=== PATIENT | female | born 1975 | race Caucasian/White ===

== ENCOUNTER 2019-06-30 12:54 | Outpatient (CLI) | payer OTHER, SELFPAY ==
--- NOTE | 2019-06-30 | XR_ITS ---
WS: [id number] PROCEDURE: XR chest 2V* [id number] CLINICAL INFORMATION: ACUTE BRONCHITIS UNSPECIFIED ORGANISM COMPARISON: June 24, 2018 FINDINGS: Heart: Cardiomegaly. Lungs: Chronic emphysematous changes. No acute pulmonary infiltrates. No focal pneumonia. Fibrosis ri ght lower lobe. Bones: S-shaped thoracolumbar scoliosis. Lateral margarita and screw fixation mid thoracic spine T6-T12 unc hanged from previous. Right sixth rib is surgically absent. Chronic healed right fifth rib fracture. XR/XR chest 2V* [id number] IMPRESSION: 1. Chronic emphysematous changes. No acute pulmonary infiltrates. 2. Fibrosis right lower lobe. 3. Thoracolumbar scoliosis with stable postoperative changes.
--- NOTE | 2019-06-30 | XR_ITS ---
WS: [id number] PROCEDURE: XR chest 2V* [id number] CLINICAL INFORMATION: ACUTE BRONCHITIS UNSPECIFIED ORGANISM COMPARISON: June 24, 2018 FINDINGS: Heart: Cardiomegaly. Lungs: Chronic emphysematous changes. No acute pulmonary infiltrates. No focal pneumonia. Fibrosis ri ght lower lobe. Bones: S-shaped thoracolumbar scoliosis. Lateral margarita and screw fixation mid thoracic spine T6-T12 unc hanged from previous. Right sixth rib is surgically absent. Chronic healed right fifth rib fracture.
== END 2019-06-30 12:55 | disposition home or self-care (01) ==
LOC: RADOUTREAD 14:31
PROVIDERS: Visit Provider Nurse Practitioner Family
DX: J20.9 Acute bronchitis, unspecified (principal); J43.9 Emphysema, unspecified; J84.10 Pulmonary fibrosis, unspecified; M41.85 Other forms of scoliosis, thoracolumbar region
CPT/HCPCS: 71046

== ENCOUNTER → 2019-07-30 11:08 | Outpatient (BNVA) | payer OTHER, SELFPAY | PROVIDERS: Visit Provider Orthopaedic Surgery | DX: M25.561 Pain in right knee (principal); M17.11 Unilateral primary osteoarthritis, right knee | CPT/HCPCS: 73560; 73565 ==

== ENCOUNTER → 2019-09-03 09:06 | Outpatient (BNVA) | payer OTHER, SELFPAY | PROVIDERS: Visit Provider Psychiatry & Neurology Neurology | DX: G43.009 Migraine without aura, not intractable, without status migrainosus (principal); G50.0 Trigeminal neuralgia; M79.7 Fibromyalgia; R25.1 Tremor, unspecified | CPT/HCPCS: 99213; 99214 ==

== ENCOUNTER → 2019-11-02 15:56 | Outpatient (BNVA) | payer OTHER, SELFPAY | PROVIDERS: Referring Provider Nurse Practitioner Family; Visit Provider Dermatology | DX: D23.9 Other benign neoplasm of skin, unspecified (principal); L91.0 Hypertrophic scar; S80.812A Abrasion, left lower leg, initial encounter; L85.1 Acquired keratosis [keratoderma] palmaris et plantaris; D17.9 Benign lipomatous neoplasm, unspecified; L82.1 Other seborrheic keratosis | CPT/HCPCS: 99203; 99204 ==

== ENCOUNTER 2019-12-12 09:34 | Outpatient (CLI) | payer OTHER, SELFPAY ==
[2019-12-12 10:06] LABS: D Dimer 0.96 ug/mIFEU (0-0.59)
[2019-12-12 10:50] LABS: Alanine Aminotransferase 28 U/L (0-33); Albumin Level 3.9 g/dL (3.5-5.2); Alkaline Phosphatase 88 IU/L (35-105); Aspartate Amino Transferase 20 U/L (0-32); Blood Urea Nitrogen 11 mg/dL (6-20); Calcium 8.9 mg/dL (8.5-10.5); Carbon Dioxide 25 mmol/L (22-29); Chloride 104 mmol/L (98-107); Globulin 2.6 g/dL (1.3-4.6); Glomerular Filtration Rate 90.1 mL/min (90-130); Glucose 111 mg/dL (65-115); NT Pro B Type Natriuretic Pept 128 pg/mL (0-125); Osmolality Calculated 290 mOsm/kg (285-295); Sodium 140 mmol/L (136-145); Total Bilirubin 0.6 mg/dL (0.15-1.2); Total Protein 6.5 g/dL (6.6-8.7)
== END 2019-12-12 09:35 | disposition home or self-care (01) ==
LOC: LAB 09:36
PROVIDERS: PCP Nurse Practitioner Family; Visit Provider Nurse Practitioner Women's Health
DX: R60.9 Edema, unspecified (principal)
CPT/HCPCS: 80053; 83880; 85378

== ENCOUNTER → 2019-12-16 10:08 | Outpatient (BNVA) | payer OTHER, SELFPAY | PROVIDERS: PCP Nurse Practitioner Family; Visit Provider Dermatology | DX: D23.9 Other benign neoplasm of skin, unspecified (principal); D48.9 Neoplasm of uncertain behavior, unspecified | CPT/HCPCS: 11406; 12032; 88304 ==

== ENCOUNTER 2019-12-18 17:32 | Emergency (ER) | payer OTHER, SELFPAY ==
[2019-12-18 17:56] VITALS: BP 165/92; PULSE 110; RESP 20; TEMP 36.7; O2SAT 98; BMI 71.1
--- NOTE | 2019-12-18 18:06 | USR_ITS ---
PROCEDURE INFORMATION: Exam: US Duplex Lower Extremity Veins, Bilateral Exam date and time: 12/18/2019 7:05 PM Age: 44 years old Clinical indication: Swelling (edema) of limb; Lower extremity, bilateral; Additional info: Dvt TECHNIQUE: Imaging protocol: Real-time duplex ultrasound of the extremities with 2-D richardson scale, color Doppler flow and spectral waveform analysis with image documentation. Complete exam focused on the bilateral lower extremity veins. COMPARISON: US ROR venous duplex LE RT 07/04/2018 4:10 PM FINDINGS: Right deep veins: Unremarkable. The common femoral, femoral, proximal profunda femoral and popliteal veins are patent without thrombus. Normal Doppler waveforms. Normal compressibility and/or augmentation response. Right superficial veins: Saphenofemoral junction is patent without thrombus. Left deep veins: Unremarkable. The common femoral, femoral, proximal profunda femoral and popliteal veins are patent without thrombus. Normal Doppler waveforms. Normal compressibility and/or augmentation response. Left superficial veins: Saphenofemoral junction is patent without thrombus. Soft tissues: Unremarkable. Other findings: A total of 3891 images acquired that required assessment and interpretation. US/CV venous duplex [facility] [id number] IMPRESSION: No evidence of deep vein thrombosis.
--- NOTE | 2019-12-18 19:23 | ECG_ITS ---
[facility] Test Date: 2019-12-18 Pat Name: Brunilda Casey Department: Room: Gender: Female Teletypewriter Operator: : 1975 Requested By: Michele Jean Baptiste Order Number: [id number] Bertha MD: Alexey Padilla M.D. Measurements Intervals [place] Rate: 106 P: 23 PA: 147 QRS: 11 QRSD: 99 T: 36 QT: 350 QTc: 467 Interpretive Statements SINUS TACHYCARDIA INCOMPLETE RIGHT BUNDLE BRANCH BLOCK [90+ ms QRS DURATION, TERMINAL R IN V1/V2, 40+ ms S IN I/aVL/V4/V5/V6] POSSIBLE ANTERIOR MYOCARDIAL INFARCTION , OF INDETERMINATE AGE [30 ms Q WAVE IN V3/V4, OR R < 0.2 mV IN V4] No previous ECG available for comparison Electronically Signed On 12-18-2019 20:39:19 CDT by Alexey Padilla M.D. [id number]
--- NOTE | 2019-12-18 19:23 | XRR_ITS ---
PROCEDURE INFORMATION: Exam: XR Chest, 1 View Exam date and time: 12/18/2019 7:48 PM Age: 44 years old Clinical indication: Chest pain; Additional info: Cp TECHNIQUE: Imaging protocol: XR of the chest Views: 1 view. COMPARISON: CR XR chest 2V* [id number] 06/30/2019 12:54 PM FINDINGS: Lungs: Unremarkable. No consolidation. Pleural space: Unremarkable. No pleural effusion. No pneumothorax. Heart/Mediastinum: Unremarkable. No cardiomegaly. Bones/joints: Thoracic spine compression plate and screw fixation device. Other findings: Obesity. XR/XR chest 1V portable [id number] IMPRESSION: Nonacute.
[2019-12-18 20:06] LABS: Basophils # 0.1 10^3/uL (0.0-0.1); Basophils % 0.8 %; Eosinophils # 0.5 10^3/uL (0.0-0.8); Eosinophils % 6.3 %; Hematocrit 44.9 % (37.0-47.0); Hemoglobin 14.6 g/dL (11.5-15.3); Lymphocytes # 1.8 10^3/uL (0.8-4.8); Lymphocytes % 23.7 %; Mean Corpuscular HGB Conc 32.5 g/dL (30.0-36.0); Mean Corpuscular Hemoglobin 28.9 pg (28.0-34.0); Mean Corpuscular Volume 88.9 fL (81-99); Mean Platelet Volume 10.2 fL (7.4-10.4); Monocytes # 0.5 10^3/uL (0.2-0.9); Monocytes % 7.2 %; Neutrophils # 4.62 10^3/uL (1.8-7.7); Neutrophils % 61.7 %; Nucleated Red Blood Cells % 0 %; Platelet Count 213 10^3/cmm (130-400); Red Blood Count 5.05 10^6/uL (4.1-5.3); Red Cell Distribution Width 14.1 % (12.1-15.1); White Blood Count 7.5 10^3/uL (4.0-10.0)
--- NOTE | 2019-12-18 20:31 | CTR_ITS ---
PROCEDURE INFORMATION: Exam: CT Angiography Chest With Contrast Exam date and time: 12/18/2019 8:58 PM Age: 44 years old Clinical indication: Shortness of breath; Prior surgery; Surgery type: Thoracic fixation; Patient HX: Bilateral leg swelling. Possible dvt. SOB. Scanned x 2. Best exam submitted TECHNIQUE: Imaging protocol: Computed tomographic angiography of the chest with intravenous contrast. 3D rendering (Not supervised by radiologist): MIP and/or 3D reconstructed images were created by the technologist. Radiation optimization: All CT scans at this facility use at least one of these dose optimization techniques: automated exposure control; mA and/or kV adjustment per patient size (includes targeted exams where dose is matched to clinical indication); or iterative reconstruction. Contrast material: OMNI 350; Contrast volume: 95 ml; Contrast route: INTRAVENOUS (IV); COMPARISON: CR XR chest 1V portable [id number] 12/18/2019 7:35 PM RADIATION DOSE METRICS: Total DLP (mGy-cm): 1839.43 FINDINGS: Tubes, catheters and devices: Right lateral thoracic spine compression plate and screw fixation device. Pulmonary arteries: Suboptimal pulmonary arterial contrast enhancement. The examination is essentially nondiagnostic for the assessment of pulmonary embolism. Can only clear the main pulmonary artery trunk and proximal right and left main pulmonary arteries of pulmonary embolism. Aorta: Unremarkable. No aortic aneurysm. No aortic dissection. Lungs: Minimal dependent atelectasis. No visible active interstitial or alveolar airspace disease. Pleural space: Unremarkable. No pneumothorax. No pleural effusion. Heart: Unremarkable. No cardiomegaly. No pericardial effusion. Lymph nodes: Unremarkable. No grossly visible enlarged lymph nodes. Bones/joints: Scoliosis. No grossly visible acute osseous abnormality. Soft tissues: Marked obesity. Patient's marked obesity results in increased quantum mottle artifact which degrades image quality in detail. Extensive metal artifact from thoracic spine compression screw and plate hardware also severely limits study. Limited diagnostic examination. CT/CT angio chest PE protcl [id number] IMPRESSION: 1. Extremely limited diagnostic examination. 2. Suboptimal pulmonary arterial contrast enhancement. The examination is essentially nondiagnostic for the assessment of pulmonary embolism. Can only clear the main pulmonary artery trunk and proximal right and left main pulmonary arteries of pulmonary embolism. Radiation Dose CTDIVOL = (mGy): DLP = 1839.43 (mGy-cm)
[2019-12-18 20:34] LABS: Alanine Aminotransferase 35 U/L (0-33); Albumin Level 4.2 g/dL (3.5-5.2); Alkaline Phosphatase 101 IU/L (35-105); Aspartate Amino Transferase 27 U/L (0-32); Blood Urea Nitrogen 15 mg/dL (6-20); Calcium 9.9 mg/dL (8.5-10.5); Carbon Dioxide 21 mmol/L (22-29); Chloride 101 mmol/L (98-107); Creatinine Clr Calc Pharmacy 142.5298; Glomerular Filtration Rate 67.4 mL/min (90-130); Glucose 112 mg/dL (65-115); NT Pro B Type Natriuretic Pept 55 pg/mL (0-125); Osmolality Calculated 286 mOsm/kg (285-295); Sodium 137 mmol/L (136-145); Total Bilirubin 0.4 mg/dL (0.15-1.2); Total Protein 7.2 g/dL (6.6-8.7)
--- NOTE | 2019-12-18 20:53 | W.ED.SOB ---
HPI - SOB/Dyspnea General: Chief Complaint: Shortness of Breath/Dyspnea Stated Complaint: possible blood clot/ sent from [facility] Time Seen by Provider: 12/18/19 19:22 Source: patient Mode of arrival: ambulatory Limitations: no limitations History of Present Illness: HPI Narrative: 44-year-old female who states she has had shortness of breath along with extremity swelling over the last week to 2 weeks. She does have a history of asthma and is morbidly obese. Patient was concerned she may have DVT or pulmonary embolism. She denies any fever. She denies any cough. Denies any vomiting or diarrhea. Associated symptoms: Deny abdominal pain, chest pain, fever(s), nausea or vomiting Review of Systems Const: Denies: fever(s), chills, body aches or change in appetite Eyes: Denies: blurry vision or eye discomfort ENMT: Denies: throat pain or dental pain Card: Denies: chest pain Resp: Reports: dyspnea GI: Denies: abdominal pain, nausea, vomiting or diarrhea : Denies: dysuria Musc: Reports: extremity swelling Skin/Breast: Denies: rash Neuro: Denies: headache(s) Psych: Denies: depression Kaleb/Lymph: Denies: easy bruising All/Imm: Denies: urticaria PFSH ED PFSH: Medical History (Updated 12/18/19 @ 21:43 by Michele Jean Baptiste MD) Degenerative arthritis of right knee Obesity Family History Other CAD (coronary artery disease) Cancer Diabetes Hypertension Social History Smoking and tobacco status: never smoked Alcohol intake: current Alcohol intake frequency: few times a month History of recent travel: No Physical Exam Const: COMMON NORMALS: no acute distress and patient oriented x3 NUTRITIONAL APPEARANCE: obese HENMT: COMMON NORMALS: normocephalic and atraumatic HEAD & SCALP: normocephalic and atraumatic Eye: COMMON NORMALS: Equal, round and reactive pupils present and EOMs intact bilaterally PUPIL: Yes Equal, round and reactive pupils present Neck/C-Spine: COMMON NORMALS: full ROM and supple Chest: COMMONS NORMALS: normal inspection of the chest and normal palpation of entire chest wall Resp: COMMON NORMALS: normal respiratory effort, No retractions, No use of accessory muscles and clear to auscultation bilaterally AUSCULTATION: clear to auscultation bilaterally Cardio: COMMON NORMALS: regular rate, regular rhythm and No murmurs present (Cardio) RATE: regular rate RHYTHM: regular rhythm GI: COMMON NORMALS: Normal to inspection, nondistended, normoactive bowel sounds present, Soft to palpation, non-tender and no masses PALPATION: Yes Soft to palpation Extremity: COMMON NORMALS: normal to inspection and full ROM Neuro: COMMON NORMALS: patient oriented x3, moves all extremities and no focal motor deficits Psych: COMMON NORMALS: mental status grossly normal, Normal thought process present and cooperative THOUGHT PROCESS: Normal thought process present Skin: COMMON NORMALS: no rashes or lesions noted and no wounds GENERAL SKIN EXAM: no rashes or lesions noted Course Vital Signs: Vital signs: Vital Signs Temperature 98.1 F 12/18/19 17:56 Pulse Rate 98 12/18/19 21:28 Respiratory Rate 20 H 12/18/19 21:28 Blood Pressure 160/88 12/18/19 21:28 Pulse Oximetry 98 12/18/19 21:28 MDM - SOB/Dyspnea MDM Narrative: Medical decision making narrative: Patient presents here with lower extremity edema along with some dyspnea. Patient CT showed no large PE she has no signs of heart failure. Her venous Doppler of her leg showed no DVT. Patient did have some slight wheezing and has a history of asthma and we will place her on steroids. She is stable for discharge and is to follow-up with PCP and return if worsening. Lab Data: Labs: Lab Results 12/18/19 12/18/19 12/18/19 Range/Units 19:58 19:58 19:58 WBC 7.5 (4.0-10.0) 10^3/ uL RBC 5.05 (4.1-5.3) 10^6/u L Hgb 14.6 (11.5-15.3) g/dL Hct 44.9 (37.0-47.0) % MCV 88.9 (81-99) fL MCH 28.9 (28.0-34.0) pg MCHC 32.5 (30.0-36.0) g/dL RDW 14.1 (12.1-15.1) % Plt Count 213 (130-400) 10^3/c mm MPV 10.2 (7.4-10.4) fL Neut % (Auto) 61.7 % Lymph % (Auto) 23.7 % [place] % (Auto) 7.2 % Eos % (Auto) 6.3 % Baso % (Auto) 0.8 % Neut # (Auto) 4.62 (1.8-7.7) 10^3/u L Lymph # (Auto) 1.8 (0.8-4.8) 10^3/u L [place] # (Auto) 0.5 (0.2-0.9) 10^3/u L Eos # (Auto) 0.5 (0.0-0.8) 10^3/u L Baso # (Auto) 0.1 (0.0-0.1) 10^3/u L Nucleated RBC % (a uto) 0 % Nucleated RBCs # 0.0 /100WBC D-Dimer 1.00 H (0-0.59) ug/mIFE U Sodium 137 (136-145) mmol/L Potassium 4.0 (3.5-5.1) mmol/L Chloride 101 (98-107) mmol/L Carbon Dioxide 21 L (22-29) mmol/L Anion Gap 19.0 (5-19) BUN 15 (6-20) mg/dL Creatinine 0.9 (0.5-0.9) mg/dL GFR Calculation 67.4 L (90-130) mL/min Glucose 112 (65-115) mg/dL Calculated Osmolal ity 286 (285-295) mOsm/k g Calcium 9.9 (8.5-10.5) mg/dL Total Bilirubin 0.4 (0.15-1.2) mg/dL AST 27 (0-32) U/L ALT 35 H (0-33) U/L Alkaline Phosphata se 101 (35-105) IU/L NT-Pro-B Natriuret Pep 55 (0-125) pg/mL Total Protein 7.2 (6.6-8.7) g/dL Albumin 4.2 (3.5-5.2) g/dL Globulin 3.0 (1.3-4.6) g/dL Imaging Data^: CT Chest: Radiologist's impression: [address] [place] [address] CT Scan Report Signed with Addenda Patient: Brunilda Casey Unit #: [id number] : 1975 Age/Sex: 44 / F ADM Date: 12/18/19 Loc: ER Room/Bed: Attending Dr: Ordering Provider/Ordering MD: Michele Jean Baptiste MD Date of Service: 12/18/19 Procedure(s): CT angio chest PE protcl [id number] Accession Number(s): [id number] Report Number: [id number]/CT angio chest PE protcl [id number] THIS REPORT CONTAINS FINDINGS THAT MAY BE CRITICAL TO PATIENT CARE. The findings were verbally communicated via telephone conference with michele Jean Baptiste at 9:40 PM CDT on 12/18/2019. The findings were acknowledged and understood. Radiation Dose CTDIVOL = (mGy): DLP = 1839.43 (mGy-cm) Addendum Dictated By: Robby Flores Addendum Signed By: Robby Flores Signed Date/Time: 12/18/19 214 8 Addendum Cosigned By: PROCEDURE INFORMATION: Exam: CT Angiography Chest With Contrast Exam date and time: 12/18/2019 8:58 PM Age: 44 years old Clinical indication: Shortness of breath; Prior surgery; Surgery type: Thoracic fixation; Patient HX: Bilateral leg swelling. Possible dvt. SOB. Scanned x 2. Best exam submitted TECHNIQUE: Imaging protocol: Computed tomographic angiography of the chest with intravenous contrast. 3D rendering (Not supervised by radiologist): MIP and/or 3D reconstructed images were created by the technologist. Radiation optimization: All CT scans at this facility use at least one of these dose optimization techniques: automated exposure control; mA and/or kV adjustment per patient size (includes targeted exams where dose is matched to clinical indication); or iterative reconstruction. Contrast material: OMNI 350; Contrast volume: 95 ml; Contrast route: INTRAVENOUS (IV); COMPARISON: CR XR chest 1V portable [id number] 12/18/2019 7:35 PM RADIATION DOSE METRICS: Total DLP (mGy-cm): 1839.43 FINDINGS: Tubes, catheters and devices: Right lateral thoracic spine compression plate and screw fixation device. Pulmonary arteries: Suboptimal pulmonary arterial contrast enhancement. The examination is essentially nondiagnostic for the assessment of pulmonary embolism. Can only clear the main pulmonary artery trunk and proximal right and left main pulmonary arteries of pulmonary embolism. Aorta: Unremarkable. No aortic aneurysm. No aortic dissection. Lungs: Minimal dependent atelectasis. No visible active interstitial or alveolar airspace disease. Pleural space: Unremarkable. No pneumothorax. No pleural effusion. Heart: Unremarkable. No cardiomegaly. No pericardial effusion. Lymph nodes: Unremarkable. No grossly visible enlarged lymph nodes. Bones/joints: Scoliosis. No grossly visible acute osseous abnormality. Soft tissues: Marked obesity. Patient's marked obesity results in increased quantum mottle artifact which degrades image quality in detail. Extensive metal artifact from thoracic spine compression screw and plate hardware also severely limits study. Limited diagnostic examination. CT/CT angio chest PE protcl [id number] IMPRESSION: 1. Extremely limited diagnostic examination. 2. Suboptimal pulmonary arterial contrast enhancement. The examination is essentially nondiagnostic for the assessment of pulmonary embolism. Can only clear the main pulmonary artery trunk and proximal right and left main pulmonary arteries of pulmonary embolism. EKG Data^: EKG 1: Attestation: I personally reviewed and interpreted this EKG as follows: EKG Interpretation Date: 12/18/19 EKG interpretation time: 18:59 Interpretation: Sinus tachycardia heart rate [address] or T wave abnormalities QRS 99 QTc 412 Discharge Plan Discharge Patient Disposition: Home Clinical Impression: Acute exacerbation of chronic obstructive airways disease Condition: Stable Prescriptions: New prednisone 50 mg tablet 50 mg PO DAILY Qty: 5 RF: 0 No Action duloxetine 60 mg capsule,delayed release(DR/EC) 60 mg PO DAILY Qty: 90 RF: 3 cyclobenzaprine 10 mg tablet 10 mg PO TID PRN (Reason: muscle spasm) Qty: 270 RF: 3 tramadol 50 mg tablet 50 mg PO Q4H PRN (Reason: Pain) RF: 0 aspirin 81 mg tablet,delayed release (DR/EC) 81 mg PO DAILY RF: 0 cholecalciferol (vitamin D3) 1,250 mcg (50,000 unit) capsule 1,250 mcg PO Q7D RF: 0 montelukast 10 mg tablet 10 mg PO DAILY RF: 0 amlodipine 10 mg tablet 10 mg PO DAILY RF: 0 metoprolol succinate 25 mg tablet extended release 24 hr 12.5 mg PO DAILY RF: 0 mupirocin 2 % ointment 1 applic TOPICAL BID Qty: 22 RF: 2 ibuprofen 800 mg Tablet 800 mg PO PRN PRN (Reason: FIBROMYALGIA) RF: 0 Advair Diskus 100-50 mcg/dose blister with device See Rx Instructions .ROUTE .COMPLEX RF: 0 albuterol sulfate 90 mcg/actuation HFA aerosol inhaler 2 puff INHALATION QID PRN (Reason: SHORTNESS OF BREATH') RF: 0 promethazine See Rx Instructions .ROUTE .COMPLEX RF: 0 Discharge Orders: Discharge Order (Routine); Ordered 12/18/19 Ordered By: Michele Jean Baptiste Referrals: Christina Rebolledo FNP [Primary Care Provider] - Discharge Diet: Advance as tolerated Discharge Activity: Resume usual activity Patient Instructions: Asthma Exacerbation - Adult Coding Level of Care Code ED Director Of Solutions Architecture for Chg Fwd Exam Comprehensive
[2019-12-18] MEDS: dexamethasone 10 mg/mL INJ IVP (21:04)
[2019-12-18] MEDS: iohexol 350 mg/mL 100 mL Btl IV (21:15)
[2019-12-18 21:28] VITALS: BP 160/88; PULSE 98; RESP 20; O2SAT 98
[2019-12-18 21:57] VITALS: PULSE 92; RESP 18; O2SAT 98
== END 2019-12-18 21:58 | disposition home or self-care (01) ==
PROVIDERS: Emergency Provider Emergency Medicine; PCP Nurse Practitioner Family
DX: J44.1 Chronic obstructive pulmonary disease with (acute) exacerbation (principal); Z79.82 Long term (current) use of aspirin
CPT/HCPCS: 12345; 71045; 71275; 80053; 83880; 85025; 85378; 93005; 93970; 96374; 96375; 99283; 99284; J1100; Q9967

== ENCOUNTER → 2020-02-05 11:50 | Outpatient (BNVA) | payer OTHER, SELFPAY | PROVIDERS: PCP Nurse Practitioner Family; Visit Provider Internal Medicine Critical Care Medicine | DX: Z11.59 Encounter for screening for other viral diseases (principal); J45.50 Severe persistent asthma, uncomplicated | CPT/HCPCS: 87635 ==

== ENCOUNTER → 2020-02-19 13:10 | Outpatient (BNVA) | payer OTHER, SELFPAY | PROVIDERS: PCP Nurse Practitioner Family; Visit Provider Internal Medicine Critical Care Medicine | DX: Z20.828 Contact with and (suspected) exposure to other viral communicable diseases (principal) | CPT/HCPCS: 87635 ==

== ENCOUNTER 2020-02-21 21:32 | Emergency (ER) | payer OTHER, SELFPAY ==
[2020-02-21 21:38] VITALS: BP 186/101; PULSE 117; RESP 22; TEMP 36.6; O2SAT 94; BMI 67.8
--- NOTE | 2020-02-21 21:38 | ECG_ITS ---
[facility] Test Date: 2020-02-22 Pat Name: Brunilda Casey Department: Room: Gender: Female Senior Telecommunications Consultant: : 1975 Requested By: Terrell Juarez Order Number: [id number] Bertha MD: PHIL SU Measurements Intervals [place] Rate: 82 P: 8 MD: 151 QRS: 11 QRSD: 103 T: 24 QT: 389 QTc: 456 Interpretive Statements SINUS RHYTHM Compared to ECG 12/18/2019 18:59:14 Sinus tachycardia no longer present Incomplete right bundle-branch block no longer present Myocardial infarct finding no longer present Electronically Signed On 02-22-2020 18:39:00 DIRECTOR SALES SUPPORT by PHIL SU [id number] f
[2020-02-21 22:42] VITALS: BP 125/93; PULSE 96; RESP 15; O2SAT 95
[2020-02-21 23:00] VITALS: BP 144/95; PULSE 92; RESP 19; O2SAT 95
--- NOTE | 2020-02-21 23:12 | XR_ITS ---
WS: [id number] XR chest 1V portable [id number] REASON FOR EXAM: sob FINDINGS: Moderate tortuous aorta and mildly enlarged heart. Lungs are poorly expanded however no definite active pulmonary parenchymal or pleural disease is iden tified. Extensive lateral plate and screw fixation of the mid and lower thoracic spine. XR/XR chest 1V portable [id number] IMPRESSION: No acute abnormality.
[2020-02-22] VITALS: BP 143/88; PULSE 93; RESP 22; O2SAT 96
[2020-02-22 00:22] LABS: INR 0.92 (0.8-1.2)
[2020-02-22 00:24] LABS: Partial Thromboplastin Time 24.3 SECONDS (23.9-36.7)
[2020-02-22 00:26] LABS: D Dimer 1.06 ug/mIFEU (0-0.59)
[2020-02-22 00:32] LABS: Troponin(5th) Baseline 6 ng/L (0-10)
[2020-02-22 00:40] LABS: Alanine Aminotransferase 29 U/L (0-33); Alkaline Phosphatase 97 IU/L (35-105); Blood Urea Nitrogen 11 mg/dL (6-20); C Reactive Protein 9.5 mg/L (0.0-4.9); Calcium 9.3 mg/dL (8.5-10.5); Carbon Dioxide 27 mmol/L (22-29); Chloride 102 mmol/L (98-107); Globulin 2.6 g/dL (1.3-4.6); Glomerular Filtration Rate 77.2 mL/min (90-130); Glucose 112 mg/dL (65-115); Lipase 15 U/L (13-60); NT Pro B Type Natriuretic Pept 66 pg/mL (0-125); Osmolality Calculated 292 mOsm/kg (285-295); Sodium 141 mmol/L (136-145); Total Bilirubin 0.5 mg/dL (0.15-1.2); Total Protein 6.6 g/dL (6.6-8.7)
[2020-02-22 00:43] LABS: Anion Gap 16.1 (5-19)
[2020-02-22 00:44] LABS: Aspartate Amino Transferase 22 U/L (0-32); Lactate Dehydrogenase 295 U/L (135-214); Potassium 4.1 mmol/L (3.5-5.1)
[2020-02-22 01:00] VITALS: BP 168/98; PULSE 85; RESP 18; O2SAT 94
[2020-02-22 01:30] VITALS: BP 181/103; PULSE 92; RESP 16; O2SAT 95
[2020-02-22 01:36] LABS: Basophils # 0.1 10^3/uL (0.0-0.1); Eosinophils # 0.4 10^3/uL (0.0-0.8); Eosinophils % 6.2 %; Hematocrit 42.3 % (37.0-47.0); Lymphocytes # 1.5 10^3/uL (0.8-4.8); Lymphocytes % 25.2 %; Mean Corpuscular HGB Conc 33.1 g/dL (30.0-36.0); Mean Corpuscular Hemoglobin 29.5 pg (28.0-34.0); Mean Corpuscular Volume 89.1 fL (81-99); Mean Platelet Volume 10.4 fL (7.4-10.4); Monocytes # 0.6 10^3/uL (0.2-0.9); Monocytes % 9.8 %; Neutrophils # 3.43 10^3/uL (1.8-7.7); Neutrophils % 57.3 %; Nucleated Red Blood Cells % 0 %; Platelet Count 228 10^3/cmm (130-400); Red Blood Count 4.75 10^6/uL (4.1-5.3); Red Cell Distribution Width 13.7 % (12.1-15.1)
[2020-02-22 01:41] LABS: Urine Appearance Hazy (CLEAR); Urine Color Yellow (Yellow)
--- NOTE | 2020-02-22 01:41 | ED_ITS ---
HPI - Chest Pain General: Chief Complaint: Chest Pain Stated Complaint: cp, stomach pain, diarhea Time Seen by Provider: 02/21/20 22:29 History of Present Illness: HPI narrative: 44-year-old female presents with chest discomfort, worsening with deep breaths, wheezing, and a history of a black tarry stool. She does not have a history of prior GI bleeding. She has have a history of COVID-19, which is been a prolonged history, she tested positive at the beginning of January, and her currently has a pending test as well. She had been on steroids as well as antibiotics, and had improved to some degree, but then worsened that she came off. MD complaint: chest pain and chest discomfort Pertinent past history: other Onset (ago): hour(s) Timing of current episode: episodic Prior episodes: Yes Onset: during rest Pain location: other Severity: moderate Quality: tightness, heaviness and sharp Relieving factors: nothing Exacerbating factors: exertion and inspiration Context: recent illness Associated symptoms: Reports dyspnea, fever(s) and nausea; Deny palpitations Review of Systems Const: Reports: fever(s) Eyes: Denies: change in vision ENMT: Denies: odynophagia or sinus pain Card: Reports: chest pain, swelling of feet/ankles and dyspnea on exertion; Denies: palpitations or irregular heart rhythm Resp: Reports: dyspnea, non-productive cough and wheezing; Denies: productive cough GI: Reports: nausea : Denies: dysuria or hematuria Musc: Denies: neck pain or joint warmth Skin/Breast: Denies: rash or erythema Neuro: Denies: headache(s), dizziness or vertigo Psych: Denies: anxiety PFSH ED PFSH: Medical History (Updated 02/22/20 @ 03:12 by Terrell Juan DO) Asthma Degenerative arthritis of right knee Hypertension Obesity Family History Other CAD (coronary artery disease) Cancer Diabetes Hypertension Social History Smoking and tobacco status: never smoked Alcohol intake: current Alcohol intake frequency: few times a month Lives independently: Yes Household members: spouse Marital status: Current occupational status: employed History of recent travel: No Current gender identity: Female Physical Exam Const: GENERAL APPEARANCE: well developed NUTRITIONAL APPEARANCE: obese ORIENTATION/CONSCIOUSNESS: Yes oriented to person, Yes oriented to place and Yes oriented to time HENMT: COMMON NORMALS: normocephalic, external ears normal and Normal external nose present HEAD & SCALP: normocephalic FACE & SINUS: normal facial exam NOSE: Normal external nose present and No nasal discharge present EXTERNAL EAR: Yes external ears normal Eye: COMMON NORMALS: Equal, round and reactive pupils present, EOMs intact bilaterally and conjunctivae normal EYELID: eyelids normal CONJUNCTIVA: Yes conjunctivae normal PUPIL: Yes Equal, round and reactive pupils present Neck/C-Spine: GENERAL: No tracheal deviation Chest: COMMONS NORMALS: normal inspection of the chest CHEST: No tenderness Resp: COMMON NORMALS: negative for clear to auscultation bilaterally EFFORT & INSPECTION: No tachypneic, No respiratory distress, No retractions, Yes uses accessory muscles and No tracheal deviation AUSCULTATION: not clear to auscultation bilaterally, no rhonchi, wheezes and diminished lung sounds Cardio: COMMON NORMALS: regular rate and regular rhythm RATE: regular rate RHYTHM: regular rhythm HEART SOUNDS: no murmurs PERIPHERAL PULSES: radial pulses present GI: INSPECTION: No abdominal distension AUSCULTATION: No Hyperactive bowel sounds present and No Hypoactive bowel sounds present PALPATION: Yes Tenderness to palpation present (GI) Details: LUQ, No Guarding due to palpation present (GI) and No Rigid due to palpation PERCUSSION: no dullness to percussion and no tympanic to percussion Neuro: SENSORIUM/ORIENTATION: Yes oriented to person, Yes oriented to place and Yes oriented to time Skin: COMMON NORMALS: no rashes or lesions noted GENERAL SKIN EXAM: no rashes or lesions noted Course Vital Signs: Vital signs: Vital Signs Temperature 98.1 F 02/22/20 03:24 Pulse Rate 81 02/22/20 03:24 Respiratory Rate 19 H 02/22/20 03:24 Blood Pressure 151/93 02/22/20 03:24 Pulse Oximetry 92 02/22/20 03:24 MDM - Chest Pain MDM Narrative: Medical decision making narrative: 44-year-old female with a history of COVID-19. She recently came off steroid. She complains of a pleuritic type chest pain and shortness of breath. Her chest x-ray shows some bilateral pneumonitis, but is a poor inspirational film, and is hard to read otherwise. She appears to be rotated on the film. White blood cell count of 6. Hemoglobin of 14. Her stool was negative for occult blood. Her D-dimer is 1, which is stable from December. Room air sats 95%. Heart rate 80. She was quite hypertensive, which is improving after blood pressure medication. She would like to go home. We will place her on a slower tapering dose of steroid. Lab Data: Labs: Lab Results 02/21/20 02/21/20 02/21/20 Range/Units 23:53 23:53 23:53 WBC Cancelled Corrected WBC Cancelled RBC Cancelled Hgb Cancelled Hct Cancelled MCV Cancelled MCH Cancelled MCHC Cancelled RDW Cancelled Plt Count Cancelled MPV Cancelled Gran % Cancelled Neut % (Auto) Cancelled Lymph % (Auto) Cancelled [place] % (Auto) Cancelled Eos % (Auto) Cancelled Baso % (Auto) Cancelled Neut # (Auto) Cancelled Lymph # (Auto) Cancelled [place] # (Auto) Cancelled Eos # (Auto) Cancelled Baso # (Auto) Cancelled Absolute Gran (aut o) Cancelled Nucleated RBC % (a uto) Cancelled Nucleated RBCs # Cancelled PT 12.70 (12.1-14.9) SECO NDS INR 0.92 (0.8-1.2) APTT 24.3 (23.9-36.7) SECO NDS D-Dimer 1.06 H (0-0.59) ug/mIFE U Sodium 141 (136-145) mmol/L Potassium 4.1 (3.5-5.1) mmol/L Chloride 102 (98-107) mmol/L Carbon Dioxide 27 (22-29) mmol/L Anion Gap 16.1 (5-19) BUN 11 (6-20) mg/dL Creatinine 0.8 (0.5-0.9) mg/dL GFR Calculation 77.2 L (90-130) mL/min Glucose 112 (65-115) mg/dL Calculated Osmolal ity 292 (285-295) mOsm/k g Lactate (0.5-2.2) mmol/L Calcium 9.3 (8.5-10.5) mg/dL Total Bilirubin 0.5 (0.15-1.2) mg/dL AST 22 (0-32) U/L ALT 29 (0-33) U/L Alkaline Phosphata se 97 (35-105) IU/L Lactate Dehydrogen ase 295 H (135-214) U/L Troponin T Baselin e (0-10) ng/L Troponin T 120 Min [place] (0-10) ng/L Delta Troponin T (0-10) ABS# C-Reactive Protein 9.5 H (0.0-4.9) mg/L NT-Pro-B Natriuret Pep 66 (0-125) pg/mL Total Protein 6.6 (6.6-8.7) g/dL Albumin 4.0 (3.5-5.2) g/dL Globulin 2.6 (1.3-4.6) g/dL Lipase 15 (13-60) U/L Urine Color (Yellow) Urine Appearance (CLEAR) Urine pH (5-7) Ur Specific Gravit y (1.005-1.030) Urine Protein (Negative) Urine Glucose (UA) (Normal) Urine Ketones (Negative) Urine Blood (Negative) Urine Nitrate (Negative) Urine Bilirubin (Negative) Urine Urobilinogen (Negative) mg/dL Ur Leukocyte Kaya ase (Negative) Urine RBC (0-2) /hpf Urine WBC (0-5) /hpf Ur Squamous Epith Cells (0-5) /hpf Ur Transition Epit h Cell /hpf Ur Renal Epithelia l Cell /hpf Calcium Oxalate Cr ystal /hpf Amorphous Sediment Urine Bacteria (NONE) /hpf 02/21/20 02/22/20 02/22/20 Range/Units 23:53 00:23 00:42 WBC 6.0 Corrected WBC RBC 4.75 Hgb 14.0 Hct 42.3 MCV 89.1 MCH 29.5 MCHC 33.1 RDW 13.7 Plt Count 228 MPV 10.4 Gran % Neut % (Auto) 57.3 Lymph % (Auto) 25.2 [place] % (Auto) 9.8 Eos % (Auto) 6.2 Baso % (Auto) 1.0 Neut # (Auto) 3.43 Lymph # (Auto) 1.5 [place] # (Auto) 0.6 Eos # (Auto) 0.4 Baso # (Auto) 0.1 Absolute Gran (aut o) Nucleated RBC % (a uto) 0 Nucleated RBCs # 0.0 PT (12.1-14.9) SECO NDS INR (0.8-1.2) APTT (23.9-36.7) SECO NDS D-Dimer (0-0.59) ug/mIFE U Sodium (136-145) mmol/L Potassium (3.5-5.1) mmol/L Chloride (98-107) mmol/L Carbon Dioxide (22-29) mmol/L Anion Gap (5-19) BUN (6-20) mg/dL Creatinine (0.5-0.9) mg/dL GFR Calculation (90-130) mL/min Glucose (65-115) mg/dL Calculated Osmolal ity (285-295) mOsm/k g Lactate (0.5-2.2) mmol/L Calcium (8.5-10.5) mg/dL Total Bilirubin (0.15-1.2) mg/dL AST (0-32) U/L ALT (0-33) U/L Alkaline Phosphata se (35-105) IU/L Lactate Dehydrogen ase (135-214) U/L Troponin T Baselin e 6 (0-10) ng/L Troponin T 120 Min [place] (0-10) ng/L Delta Troponin T (0-10) ABS# C-Reactive Protein (0.0-4.9) mg/L NT-Pro-B Natriuret Pep (0-125) pg/mL Total Protein (6.6-8.7) g/dL Albumin (3.5-5.2) g/dL Globulin (1.3-4.6) g/dL Lipase (13-60) U/L Urine Color Yellow (Yellow) Urine Appearance Hazy A (CLEAR) Urine pH 6 (5-7) Ur Specific Gravit y 1.020 (1.005-1.030) Urine Protein Neg (Negative) Urine Glucose (UA) Norm (Normal) Urine Ketones Negative (Negative) Urine Blood Neg (Negative) Urine Nitrate Negative (Negative) Urine Bilirubin Neg (Negative) Urine Urobilinogen Norm (Negative) mg/dL Ur Leukocyte Kaya ase Negative (Negative) Urine RBC 0-4 H (0-2) /hpf Urine WBC None (0-5) /hpf Ur Squamous Epith Cells 25-40 H (0-5) /hpf Ur Transition Epit h Cell None /hpf Ur Renal Epithelia l Cell None /hpf Calcium Oxalate Cr ystal 0-4 H /hpf Amorphous Sediment Not Reportable Urine Bacteria 1+ H (NONE) /hpf 02/22/20 02/22/20 Range/Units 00:42 01:30 WBC Corrected WBC RBC Hgb Hct MCV MCH MCHC RDW Plt Count MPV Gran % Neut % (Auto) Lymph % (Auto) [place] % (Auto) Eos % (Auto) Baso % (Auto) Neut # (Auto) Lymph # (Auto) [place] # (Auto) Eos # (Auto) Baso # (Auto) Absolute Gran (aut o) Nucleated RBC % (a uto) Nucleated RBCs # PT (12.1-14.9) SECO NDS INR (0.8-1.2) APTT (23.9-36.7) SECO NDS D-Dimer (0-0.59) ug/mIFE U Sodium (136-145) mmol/L Potassium (3.5-5.1) mmol/L Chloride (98-107) mmol/L Carbon Dioxide (22-29) mmol/L Anion Gap (5-19) BUN (6-20) mg/dL Creatinine (0.5-0.9) mg/dL GFR Calculation (90-130) mL/min Glucose (65-115) mg/dL Calculated Osmolal ity (285-295) mOsm/k g Lactate 1.0 (0.5-2.2) mmol/L Calcium (8.5-10.5) mg/dL Total Bilirubin (0.15-1.2) mg/dL AST (0-32) U/L ALT (0-33) U/L Alkaline Phosphata se (35-105) IU/L Lactate Dehydrogen ase (135-214) U/L Troponin T Baselin e (0-10) ng/L Troponin T 120 Min [place] 6.00 (0-10) ng/L Delta Troponin T 0 (0-10) ABS# C-Reactive Protein (0.0-4.9) mg/L NT-Pro-B Natriuret Pep (0-125) pg/mL Total Protein (6.6-8.7) g/dL Albumin (3.5-5.2) g/dL Globulin (1.3-4.6) g/dL Lipase (13-60) U/L Urine Color (Yellow) Urine Appearance (CLEAR) Urine pH (5-7) Ur Specific Gravit y (1.005-1.030) Urine Protein (Negative) Urine Glucose (UA) (Normal) Urine Ketones (Negative) Urine Blood (Negative) Urine Nitrate (Negative) Urine Bilirubin (Negative) Urine Urobilinogen (Negative) mg/dL Ur Leukocyte Kaya ase (Negative) Urine RBC (0-2) /hpf Urine WBC (0-5) /hpf Ur Squamous Epith Cells (0-5) /hpf Ur Transition Epit h Cell /hpf Ur Renal Epithelia l Cell /hpf Calcium Oxalate Cr ystal /hpf Amorphous Sediment Urine Bacteria (NONE) /hpf Discharge Plan Discharge Patient Disposition: Home Clinical Impression: COVID-19 Severe persistent asthma Qualifiers: Asthma complication type: with acute exacerbation Qualified Code(s): J45.51 - Severe persistent asthma with (acute) exacerbation Condition: Stable Prescriptions: New prednisone 10 mg tablet See Rx Instructions .ROUTE .COMPLEX Qty: 30 RF: 0 No Action duloxetine 60 mg capsule,delayed release(DR/EC) 60 mg PO DAILY Qty: 90 RF: 3 cyclobenzaprine 10 mg tablet 10 mg PO TID PRN (Reason: muscle spasm) Qty: 270 RF: 3 tramadol 50 mg tablet 50 mg PO Q4H PRN (Reason: Pain) RF: 0 aspirin 81 mg tablet,delayed release (DR/EC) 81 mg PO DAILY RF: 0 cholecalciferol (vitamin D3) 1,250 mcg (50,000 unit) capsule 1,250 mcg PO Q7D RF: 0 montelukast 10 mg tablet 10 mg PO DAILY RF: 0 amlodipine 10 mg tablet 10 mg PO DAILY RF: 0 metoprolol succinate 25 mg tablet extended release 24 hr 12.5 mg PO DAILY RF: 0 mupirocin 2 % ointment 1 applic TOPICAL BID Qty: 22 RF: 2 Incruse Ellipta 62.5 mcg/actuation blister with device 1 inh INHALATION DAILY Qty: 30 RF: 3 ibuprofen 800 mg Tablet 800 mg PO PRN PRN (Reason: FIBROMYALGIA) RF: 0 Advair Diskus 100-50 mcg/dose blister with device See Rx Instructions .ROUTE .COMPLEX RF: 0 albuterol sulfate 90 mcg/actuation HFA aerosol inhaler 2 puff INHALATION QID PRN (Reason: SHORTNESS OF BREATH') RF: 0 promethazine See Rx Instructions .ROUTE .COMPLEX RF: 0 prednisone 50 mg tablet 50 mg PO DAILY Qty: 5 RF: 0 Discharge Orders: Discharge ED (Routine); Ordered 02/22/20 Ordered By: Terrell Juan Referrals: Christina Rebolledo FNP [Primary Care Provider] - 1-3 days Discharge Diet: Advance as tolerated Discharge Activity: Increase activity as tolerated Patient Instructions: Asthma (ED), Viral Pneumonia (ED) Activity Restrictions/Additional Instructions: Make sure you are using your rescue inhaler every 4 hours while awake for the next 24 hours, then as needed. Medications as directed. Return for worsening pain despite treatment, continued lack or tarry stools as well as blood in the stool, worsening shortness of breath despite treatment, other concerning symptoms. Coding Level of Care Code ED [employer] Design Manager for [employer] Fwd Exam Comprehensive
[2020-02-22 01:42] LABS: Add Urine Microscopic? YES; Bilirubin Urine Neg (Negative); Blood Urine Neg (Negative); Glucose Urine UA Norm (Normal); Ketones Urine Negative (Negative); Leukocyte Esterase Urine Negative (Negative); Nitrate Urine Negative (Negative); Protein Urine Neg (Negative); Urobilinogen Urine Norm (Negative); pH Urine 6 (5-7)
[2020-02-22 01:51] LABS: RBC Urine 0-4 /hpf (0-2)
[2020-02-22 01:52] LABS: Add Urine Culture? No; Bacteria Urine 1+ /hpf; Calcium Oxalate Crystals Urine 0-4 /hpf; Squamous Epithelial Cell Urine 25-40 /hpf (0-5)
[2020-02-22 02:00] VITALS: BP 153/99; PULSE 78; RESP 17; O2SAT 96
[2020-02-22 02:01] LABS: Troponin 5 2HR Delta 0 ABS# (0-10)
[2020-02-22] MEDS: labetalol 5 mg/mL SDV 20mL 20 MG IVP (02:15)
[2020-02-22] MEDS: amlodipine 10 mg Tablet PO (02:19)
[2020-02-22] MEDS: terbutaline 1 mg/mL INJ 0.25 MG SUBCUT (02:22)
[2020-02-22] MEDS: albuterol 8 gm MDI 4 PUFF INHALATION (03:08)
[2020-02-22 03:09] VITALS: PULSE 77; RESP 20; O2SAT 95
[2020-02-22 03:24] VITALS: BP 151/93; PULSE 81; RESP 19; TEMP 36.7; O2SAT 92
[2020-02-22 03:33] LABS: Procalcitonin 0.05 ng/mL (0-0.5)
== END 2020-02-22 03:24 | disposition home or self-care (01) ==
PROVIDERS: Emergency Provider Emergency Medicine; PCP Nurse Practitioner Family
DX: U07.1 COVID-19 (principal); J45.51 Severe persistent asthma with (acute) exacerbation; Z79.82 Long term (current) use of aspirin; I10 Essential (primary) hypertension
CPT/HCPCS: 12345; 36415; 71045; 80053; 81001; 82272; 83605; 83615; 83690; 83880; 84145; 84484; 85025; 85378; 85610; 85730; 86140; 93005; 94640; 96372; 96374; 96375; 99283; 99284; J2930; J3105; J3490; J3535

== ENCOUNTER → 2020-03-03 16:59 | Outpatient (BNVA) | payer OTHER, SELFPAY | PROVIDERS: PCP Nurse Practitioner Family; Visit Provider Internal Medicine Critical Care Medicine | DX: Z01.812 Encounter for preprocedural laboratory examination (principal); Z20.828 Contact with and (suspected) exposure to other viral communicable diseases | CPT/HCPCS: 87635 ==

== ENCOUNTER 2020-03-07 06:52 | Outpatient (CLI) | payer OTHER, SELFPAY ==
--- NOTE | 2020-03-07 09:51 | PFTS_ITS ---
Date of Study:03/07/20 Date of Dictation: 03/07/2020 MECHANICS: Forced vital capacity (FVC) is reduced 60%. Forced expiratory volume in one second (FEV1) is reduced 60%. FEV1/FVC is normal. FLOW VOLUME LOOP: Normal . LUNG VOLUMES: Total lung capacity (TLC) is mildly reduced 70%. Residual volume (RV) is normal 83% DIFFUSING CAPACITY FOR CARBON MONOXIDE: Mildly reduced 64% . INTERPRETATION: The pulmonary function tests are consistent with restrictive ventilatory defect and mild reduction in gas transfer. Please correlate clinically. MTDD
== END 2020-03-07 06:53 | disposition home or self-care (01) ==
LOC: RT 06:54
PROVIDERS: PCP Nurse Practitioner Family; Visit Provider Internal Medicine Critical Care Medicine
DX: J45.50 Severe persistent asthma, uncomplicated (principal)
CPT/HCPCS: 94060; 94726; 94729; J7611

== ENCOUNTER 2020-03-08 06:48 | Outpatient (CLI) | payer OTHER, SELFPAY ==
--- NOTE | 2020-03-08 07:15 | USCV_ITS ---
Brunilda Casey Age: 44 Gender: F : 1975 Exam Date: 03/08/2020 07:16 Ordering Phys: Lupe Bonner MD Technologist: Lexa Yuan [place] [facility] [place]: bilateral edema BP: 146 / 90 HR: 86 Rhythm: Sinus Technical Quality: Adequate MEASUREMENTS (Male / Female) Normal Values 2D ECHO LV Diastolic Diameter PLAX 3.1 cm 4.2 - 5.9 / 3.9 - 5.3 cm LV Systolic Diameter PLAX 1.8 cm IVS Diastolic Thickness 1.2 cm 0.6 - 1.0 / 0.6 - 0.9 cm IVS Systolic Thickness 1.9 cm LVPW Diastolic Thickness 1.2 cm 0.6 - 1.0 / 0.6 - 0.9 cm LVPW Systolic Thickness 1.4 cm LVOT Diameter 2.1 cm LV Ejection Fraction 2D Teich 74.0 % LV Ejection Fraction MOD 2C 62.6 % LV Ejection Fraction 2C AL 63.1 % LA Diameter 3.2 cm LA Width 3.7 cm LA Height 4.1 cm RA Width 4.5 cm RA Height 4.8 cm Aorta at Sinotubular Diameter 2.5 cm M-MODE LV Diastolic Diameter MM 2.7 cm 4.2 - 5.9 / 3.9 - 5.3 cm LV Systolic Diameter MM 1.4 cm LV Ejection Fraction MM Teich 82.3 % IVS Diastolic Thickness MM 1.3 cm 0.6 - 1.0 / 0.6 - 0.9 cm IVS Systolic Thickness MM 2.0 cm LVPW Diastolic Thickness MM 1.5 cm 0.6 - 1.0 / 0.6 - 0.9 cm LVPW Systolic Thickness MM 1.5 cm RV Diastolic Diameter MM 1.4 cm Aortic Annulus Diameter 3.0 cm LA Ao Ratio MM 1.1 MV E Point Septal Separation 0.6 cm DOPPLER AV Peak Velocity 111.0 cm/s LVOT Peak Velocity 113.0 cm/s AV Area Cont Eq vti 2.8 cm squared AV Area Cont Eq pk 3.4 cm squared MV Area PHT 5.0 cm squared Mitral E to A Ratio 0.9 MV E' Velocity 37.5 cm/s Mitral E to MV E' Ratio 6.8 Mitral E to LV E' Lateral Ratio 6.5 Mitral E to LV E' Septal Ratio 7.2 TR Peak Velocity 131.3 cm/s TR Peak Gradient 6.9 mmHg TV Peak E Velocity 71.0 cm/s Right Atrial Pressure 3.0 mmHg Pulmonary Artery Systolic Pressu 9.9 mmHg FINDINGS Left Ventricle Possibly normal LV size ejection fraction of around 60% No gross wall motion normalities noted. Mild concentric left ventricular hypertrophy Right Ventricle The right ventricle is normal in size and function. Right Atrium The right atrium is normal in size. Left Atrium The left atrium is normal in size. Mitral Valve No gross abnormalities noted Aortic Valve No gross abnormalities noted Tricuspid Valve Not visualized well .. Pulmonic Valve Not visualized well Pericardium Normal pericardium without effusion. Aorta Normal aortic annulus size. CONCLUSIONS Possibly normal LV size ejection fraction of around 60% No gross wall motion normalities noted. Mild concentric left ventricular hypertrophy. No gross valve abnormalities noted Possibly normal cardiac chamber sizes There is no pericardial effusion. Technically difficult study because of the poor ultrasonic window. Dr Milo Umaña MD FACC (Electronically Signed) Final Date: 08 March 2020 20:15 S
== END 2020-03-08 06:49 | disposition home or self-care (01) ==
PROVIDERS: PCP Nurse Practitioner Family; Visit Provider Internal Medicine Critical Care Medicine
DX: R60.0 Localized edema (principal)
CPT/HCPCS: 93306

== ENCOUNTER 2020-04-04 09:45 | Outpatient (CLI) | payer OTHER, SELFPAY ==
--- NOTE | 2020-04-04 09:47 | MM_ITS ---
WS: [id number] BILATERAL DIGITAL SCREENING MAMMOGRAPHY WITH CAD CLINICAL INFORMATION: SCREENING HISTORY: Screening mammogram. No current complaints. COMPARISON: TECHNIQUE: Bilateral CC and MLO views. FINDINGS: Scattered fibroglandular densities bilaterally. Bilateral nodular densities unchanged. No suspicious focal mass, asymmetry, calcifications, or architectural distortion. No evidence of malignancy. MM/[place] [id number] IMPRESSION: BI-RADS: 2-Benign FOLLOW UP: 1 Year Follow-up Recommend return to annual screening mammography.
== END 2020-04-04 09:46 | disposition home or self-care (01) ==
LOC: RADSHAW 09:46
PROVIDERS: PCP Nurse Practitioner Family; Visit Provider Nurse Practitioner Family
DX: Z12.31 Encounter for screening mammogram for malignant neoplasm of breast (principal)
CPT/HCPCS: 77067

== ENCOUNTER 2020-10-05 10:40 | Outpatient (CLI) | payer OTHER, SELFPAY ==
--- NOTE | 2020-10-05 10:45 | CT_ITS ---
WS: [id number] CT HEAD TECHNIQUE: Noncontrast CT of the head obtained from the skullbase to the vertex. CLINICAL INFORMATION: INTRACTABLE MIGRAINE WITH AURA WITH STATUS MIGRAINOSUS COMPARISON: MRI November 25, 2015 DLP: 988.[address] scans at [facility] use at least one of these dose optimization techniques: automat ed exposure control; mA and/or kV adjustment per patient size (includes targeted exams where dose is matched to clinical indication); or iterative reconstruction. FINDINGS: No evidence of intracranial hemorrhage or mass effect. Ventricular system and basal cisterns are hwang nt. No extra-axial fluid collections. No evidence of mass or mass effect. Normal richardson-white different iation. Stable appearing Chiari I malformation with crowding of the foramen magnum. Mild mass effect on the brainstem. Normal fourth ventricle. No hydrocephalus. This appears stable since the MRI 11/16 6. Paranasal sinuses and mastoid air cells are well aerated. .Normal visualized soft tissues. CT/CT head wo con* [id number] IMPRESSION: 1. No evidence of intracranial hemorrhage or mass effect. 2. 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 Normal fourth ve ntricle. No hydrocephalus. This appears stable since 2016 however with increasi ng headaches recommend further evaluation MRI head without gadolinium enhanceme nt as well as MRI cervical spine to evaluate for syrinx and brainstem signal ab normality. 3. No other significant findings.
== END 2020-10-05 10:41 | disposition home or self-care (01) ==
PROVIDERS: PCP Nurse Practitioner Family; Visit Provider Nurse Practitioner Family
DX: G43.119 Migraine with aura, intractable, without status migrainosus (principal)
CPT/HCPCS: 70450

== ENCOUNTER 2020-11-14 15:50 | Outpatient (CLI) | payer OTHER, SELFPAY ==
[2020-11-14 17:45] LABS: Homocysteine 15.74
[2020-11-14 17:55] LABS: Vitamin B12 280 pg/mL (232-1245)
[2020-11-19 11:17] LABS: Methylmalonic Acid 333 nmol/L (87-318)
== END 2020-11-14 15:51 | disposition home or self-care (01) ==
PROVIDERS: PCP Nurse Practitioner Family; Visit Provider Psychiatry & Neurology Neurology
DX: R20.0 Anesthesia of skin (principal); R20.2 Paresthesia of skin
CPT/HCPCS: 36415; 82607; 83090; 83921

== ENCOUNTER 2020-12-22 10:36 | Outpatient (CLI) | payer OTHER, SELFPAY ==
--- NOTE | 2020-12-22 10:44 | FL_ITS ---
WS: [id number] FL barium swallow modifd [id number] REASON FOR EXAM: Other dysphagia FLUOROSCOPY TIME: 1.0 minutes FINDINGS: The swallowing of varying consistencies of barium was monitored and recorded fluoroscopically. Examin ation was limited in that the patient size for hip limited view narrowing distal to the epiglottis. A detailed report of the analysis of the swallowing will be rendered by the speech therapy department . No aspiration identified. FL/FL barium swallow modifd [id number] IMPRESSION: Modified barium swallow as above.
== END 2020-12-22 10:37 | disposition home or self-care (01) ==
LOC: RAD 10:40
PROVIDERS: PCP Nurse Practitioner Family; Visit Provider Specialist
DX: R13.10 Dysphagia, unspecified (principal)
CPT/HCPCS: 74230; 92611

== ENCOUNTER 2020-12-28 10:33 | Outpatient (CLI) | payer OTHER, SELFPAY ==
--- NOTE | 2020-12-28 10:43 | FL_ITS ---
WS: [id number] ESOPHAGRAM TECHNIQUE: Double contrast examination was performed with thin and thick barium. Upright images were obtained. CLINICAL INFORMATION: DYSPHAGIA COMPARISON: Modified barium swallow December 22, 2020 FINDINGS: Swallowing: No evidence of aspiration or penetration. Esophagus: Mild esophageal dysmotility. No evidence of stricture or mass. No evidence of reflux esoph agitis. Tiny hiatal hernia. Gastroesophageal reflux: None. No difficulties with barium tablet. Thoracic spine fixation hardware obscures some images. Fluoroscopy time: 1.9 minutes. FL/PR barium swallow [id number] IMPRESSION: 1. Moderate esophageal dysmotility with slightly delayed emptying. No evidence of stricture or obstructing mass. 2. No evidence of aspiration or penetration. Normal oropharyngeal phase. 3. No evidence of gastroesophageal reflux in the upright position. Tiny esopha geal hiatal hernia. 4. No difficulties with the barium tablet.
== END 2020-12-28 10:34 | disposition home or self-care (01) ==
PROVIDERS: PCP Nurse Practitioner Family; Visit Provider Specialist
DX: R13.10 Dysphagia, unspecified (principal)
CPT/HCPCS: 74220

== ENCOUNTER 2021-01-31 06:00 | Outpatient (RCR) | payer OTHER, SELFPAY | END 2021-02-08 09:02 | disposition home or self-care (01) | LOC: SST 06:00 | PROVIDERS: PCP Nurse Practitioner Family; Referring Provider Specialist; Visit Provider Specialist | DX: R13.19 Other dysphagia (principal) | CPT/HCPCS: 92610 ==

== ENCOUNTER 2021-02-21 06:00 | Outpatient (RCR) | payer OTHER, SELFPAY | END 2021-03-17 23:59 | disposition home or self-care (01) | LOC: SPT 06:00 | PROVIDERS: Referring Provider Nurse Practitioner Family; Visit Provider Nurse Practitioner Family | DX: G20 Parkinson's disease (principal) | CPT/HCPCS: 97110; 97161 ==

== ENCOUNTER 2021-03-27 10:18 | Outpatient (CLI) | payer OTHER, SELFPAY ==
[2021-03-27 10:36] VITALS: BP 160/92; PULSE 83; RESP 19; TEMP 36.8; O2SAT 96; BMI 69.4
[2021-03-27 11:22] VITALS: BP 167/94; PULSE 85; RESP 18; TEMP 36.8; O2SAT 99
[2021-03-27 12:09] VITALS: BP 150/88; PULSE 74; RESP 18; TEMP 36.7; O2SAT 99
[2021-03-27 12:14] VITALS: BP 150/88; PULSE 74; RESP 18; TEMP 36.7; O2SAT 99
== END 2021-03-27 10:19 | disposition home or self-care (01) ==
LOC: OPS 10:20
PROVIDERS: PCP Nurse Practitioner Family; Visit Provider Nurse Practitioner Family
DX: U07.1 COVID-19 (principal)
CPT/HCPCS: 96365

== ENCOUNTER 2021-03-30 23:23 | Emergency (ER) | payer OTHER, SELFPAY ==
[2021-03-30 23:38] VITALS: BP 133/87; PULSE 96; RESP 21; TEMP 36.9; O2SAT 94
--- NOTE | 2021-03-30 23:46 | W.ED.HA ---
HPI - Headache General: Chief Complaint: Headache Stated Complaint: covid +, headache, high blood pressure Time Seen by Provider: 03/30/21 23:45 History of Present Illness: HPI Narrative: Ms. Casey is a 40-year-old lady with history of COVID long-haul as well as current reinfection with COVID and history of migraines who presents to the emergency department due to headache and generalized symptoms. She reports illness started approximately 1 week ago. She received monoclonal antibody infusion. She endorses progressive onset gradual worsening headache. Headache is described as a strip across the top of her head. She describes squeezing sensation. There is mild associated light and sound sensitivity. Some associated nausea and vomiting. Additionally she has cough and mild shortness of breath. At times she has palpitations and notices blood pressure is high. In addition she notes some aching in her left leg. Overall the course of symptoms has worsened. Intensity is moderate to severe. Has tried [id number] medications without significant relief. No other specific exacerbating relieving factors identified. MD elicited complaint: headache Pertinent past history: other Onset (ago): day(s) Onset description: gradually Location: other Severity: severe Exacerbating factors: none Relieving factors: nothing Context: other Associated symptoms: Reports other Treatments prior to arrival: acetaminophen and ibuprofen Review of Systems General: Reports: 10 or more systems reviewed and unremarkable except in HPI and below PFS ED PFSH: Medical History COVID-19 long hauler Deep vein blood clot of right lower extremity Migraines Parkinsons disease Surgical History H/O: hysterectomy Social History Smoking and tobacco status: never smoked Physical Exam Const: COMMON NORMALS: alert GENERAL APPEARANCE: cooperative, well developed and ill appearing (mildly) NUTRITIONAL APPEARANCE: obese HENMT: COMMON NORMALS: normocephalic and atraumatic HEAD & SCALP: normocephalic and atraumatic THROAT: posterior oropharynx normal Eye: COMMON NORMALS: conjunctivae normal CONJUNCTIVA: Yes conjunctivae normal SCLERA: sclerae normal Neck/C-Spine: COMMON NORMALS: supple GENERAL: Yes trachea midline Resp: COMMON NORMALS: normal respiratory effort EFFORT & INSPECTION: Yes able to speak in complete sentences Cardio: COMMON NORMALS: regular rate and regular rhythm RATE: regular rate RHYTHM: regular rhythm GI: COMMON NORMALS: Soft to palpation PALPATION: Yes Soft to palpation and No Tenderness to palpation present (GI) PERCUSSION: normal to percussion Extremity: NARRATIVE EXTREMITY EXAM: generalized myalgias. No focal tenderness of asymmetry of calfs. Negative homans sign GENERAL: Yes normal exam except as noted and No edema Neuro: COMMON NORMALS: moves all extremities, no focal motor deficits and no sensory deficits noted SENSORIUM/ORIENTATION: Yes alert and No Orientation impaired Psych: COMMON NORMALS: mental status grossly normal and Normal thought process present THOUGHT PROCESS: Normal thought process present Course ED course: - Patient was seen and evaluated by me at bedside - Patient placed on cardiac monitors, IV access obtained - Initial evaluation notable for exam as above -Symptom treatment ordered - Labs notable for hemoconcentration likely reflecting dehydration. Procalcitonin is negative. - Imaging notable for mild bilateral interstitial pneumonia likely reflecting known COVID - Upon serial reexamination after treatment the patient was improved with treatment - Based on patient history, evaluation, labs, and imaging as interpreted the most likely cause of the patient's condition is headache and COVID-19 - The results of ED evaluation were discussed with the patient including prescriptions and/or symptomatic cares (if applicable) including appropriate and responsible use, followup plan, and return precautions. The patient verbalized understanding and felt safe for discharge. - Patient discharged in satisfactory condition. Note: Click bubbles or prepopulated benjamin in note writing are used for assistance with data collection and billing and are inherently more limited than narrative and other text portions of this note. Please use narrative for additional clinical history and defer to narrative/free test for any case of contradictory information. If information appears in only free text or click bubble it should be considered present or absent as reported. Please contact note automobile service writer for clarifications of clinical information or contradictory information. MDM is a brief summary, contradictory or erroneous seeming information should be clarified and full note should be reviewed. Vital Signs: Vital signs: Vital Signs Temperature 98.5 F 03/30/21 23:38 Pulse Rate 81 03/31/21 02:46 Respiratory Rate 18 03/31/21 02:46 Blood Pressure 138/67 03/31/21 02:46 Pulse Oximetry 95 03/31/21 02:46 MDM - Headache MDM Narrative: Medical decision making narrative: 46-year-old lady presenting with known COVID and headache. No focal neurologic deficits or concerning features of headache. Improved with treatment. Otherwise as generalized malaise and myalgias likely secondary to COVID. No new oxygen requirement. Satisfactory for discharge. Medical Records: Attestation: I reviewed the patient's medical records. Lab Data: Attestation: I reviewed the patient's lab results. Labs: Lab Results 03/31/21 03/31/21 00:24 00:24 WBC 7.0 10^3/uL 10^3/ uL (4.0-10.0) RBC 5.55 10^6/uL H 10 ^6/uL (4.1-5.3) Hgb 15.8 g/dL H g/dL (11.5-15.3) Hct 49.6 % H % (37.0-47.0) MCV 89.4 fl fl (81-99) MCH 28.5 pg pg (28.0-34.0) MCHC 31.9 g/dL g/dL (30.0-36.0) RDW 13.7 % % (12.1-15.1) Plt Count 241 10^3/cmm 10^3 /cmm (130-400) MPV 10.3 fL fL (7.4-10.4) Neut % (Auto) 65.3 % % Lymph % (Auto) 25.2 % % [place] % (Auto) 6.9 % % Eos % (Auto) 1.1 % % Baso % (Auto) 0.9 % % Neut # (Auto) 4.57 10^3/uL 10^3 /uL (1.8-7.7) Lymph # (Auto) 1.8 10^3/uL 10^3/ uL (0.8-4.8) [place] # (Auto) 0.5 10^3/uL 10^3/ uL (0.2-0.9) Eos # (Auto) 0.1 10^3/uL 10^3/ uL (0.0-0.8) Baso # (Auto) 0.1 10^3/uL 10^3/ uL (0.0-0.1) Nucleated RBC % (a uto) 0 % % Nucleated RBCs # 0.0 /100WBC /100W BC Sodium 142 mmol/L mmol/L (136-145) Potassium 4.3 mmol/L mmol/L (3.5-5.1) Chloride 104 mmol/L mmol/L (98-107) Carbon Dioxide 23 mmol/L mmol/L (22-29) Anion Gap 19.3 H (5-19) BUN 14 mg/dL mg/dL (6-20) Creatinine 0.9 mg/dL mg/dL (0.5-0.9) GFR Calculation 66.8 mL/min L mL/ min (90-130) Glucose 108 mg/dL mg/dL (65-115) Calculated Osmolal ity 295 mOsm/kg mOsm/ kg (285-295) Calcium 8.9 mg/dL mg/dL (8.5-10.5) Total Bilirubin 0.4 mg/dL mg/dL (0.15-1.2) AST 18 U/L U/L (0-32) ALT 30 U/L U/L (0-33) Alkaline Phosphata se 130 IU/L H IU/L (35-105) Total Protein 7.2 g/dL g/dL (6.6-8.7) Albumin 4.1 g/dL g/dL (3.5-5.2) Globulin 3.1 g/dL g/dL (1.3-4.6) Procalcitonin 0.04 ng/mL ng/mL (0-0.5) Discharge Plan Discharge Patient Disposition: Home Clinical Impression: COVID-19, Headache, Myalgia Condition: Stable Prescriptions: New Reglan 10 mg tablet 10 mg PO TID PRN (Reason: migraine headache) Qty: 10 RF: 0 Benadryl Allergy 25 mg tablet 25 mg PO Q8H PRN (Reason: headache) Qty: 10 RF: 0 Discharge Orders: Discharge ED (Routine); Ordered 03/31/21 Ordered By: Yusuf Covington Discharge Diet: Usual diet Discharge Activity: Resume usual activity Patient Instructions: Acute Headache (ED), Musculoskeletal Pain (ED), COVID-19 (Coronavirus Disease 2019) (ED) Activity Restrictions/Additional Instructions: Thank you for visiting the emergency department. You were seen and evaluated for headache and pains. I believe that your symptoms are most likely related to COVID-19. We are pleased that you had improvement with treatment. Please ensure that you are staying hydrated. Please follow-up with your primary care provider. Return to the emergency department for worsening symptoms as discussed or anything else that you are concerned about and feel needs emergency department evaluation. Coding Level of Care Code ED Chief Nursing Executive for Maurisio Zimmer
[2021-03-31 00:12] VITALS: BP 124/63; PULSE 81; RESP 18; O2SAT 97
--- NOTE | 2021-03-31 00:14 | XRR_ITS ---
PROCEDURE INFORMATION: Exam: XR Chest Exam date and time: 03/31/2021 12:14 AM Age: 46 years old Clinical indication: Cough and shortness of breath; Prior surgery; Additional info: Cough, SOB, covid + TECHNIQUE: Imaging protocol: XR of the chest. Views: 1 view. COMPARISON: No relevant prior studies available. FINDINGS: Lungs: Mild bilateral interstitial pneumonia. Pleural spaces: Unremarkable. No pleural effusion. No pneumothorax. Heart/Mediastinum: Unremarkable. No cardiomegaly. Bones/joints: Dextroscoliosis with lateral metallic fixation of the spine. XR/XR chest 1V portable [id number] IMPRESSION: 1. Dextroscoliosis with lateral metallic fixation of the spine. 2. Mild bilateral interstitial pneumonia.
[2021-03-31 00:41] LABS: Basophils # 0.1 10^3/uL (0.0-0.1); Basophils % 0.9 %; Eosinophils # 0.1 10^3/uL (0.0-0.8); Eosinophils % 1.1 %; Hematocrit 49.6 % (37.0-47.0); Hemoglobin 15.8 g/dL (11.5-15.3); Lymphocytes # 1.8 10^3/uL (0.8-4.8); Lymphocytes % 25.2 %; Mean Corpuscular HGB Conc 31.9 g/dL (30.0-36.0); Mean Corpuscular Hemoglobin 28.5 pg (28.0-34.0); Mean Corpuscular Volume 89.4 fl (81-99); Mean Platelet Volume 10.3 fL (7.4-10.4); Monocytes # 0.5 10^3/uL (0.2-0.9); Monocytes % 6.9 %; Neutrophils # 4.57 10^3/uL (1.8-7.7); Neutrophils % 65.3 %; Nucleated Red Blood Cells % 0 %; Platelet Count 241 10^3/cmm (130-400); Red Blood Count 5.55 10^6/uL (4.1-5.3); Red Cell Distribution Width 13.7 % (12.1-15.1)
[2021-03-31 00:56] LABS: Alanine Aminotransferase 30 U/L (0-33); Albumin Level 4.1 g/dL (3.5-5.2); Alkaline Phosphatase 130 IU/L (35-105); Anion Gap 19.3 (5-19); Aspartate Amino Transferase 18 U/L (0-32); Blood Urea Nitrogen 14 mg/dL (6-20); Calcium 8.9 mg/dL (8.5-10.5); Carbon Dioxide 23 mmol/L (22-29); Chloride 104 mmol/L (98-107); Globulin 3.1 g/dL (1.3-4.6); Glomerular Filtration Rate 66.8 mL/min (90-130); Glucose 108 mg/dL (65-115); Osmolality Calculated 295 mOsm/kg (285-295); Potassium 4.3 mmol/L (3.5-5.1); Sodium 142 mmol/L (136-145); Total Bilirubin 0.4 mg/dL (0.15-1.2); Total Protein 7.2 g/dL (6.6-8.7)
[2021-03-31 01:02] LABS: Procalcitonin 0.04 ng/mL (0-0.5)
[2021-03-31] MEDS: sodium chloride 0.9% 500 ML 999 ML IV (01:16)
[2021-03-31] MEDS: magnesium sulfate premix 2 GM/50 ML PIGGYBACK IV (01:16)
[2021-03-31] MEDS: metoclopramide 5 mg/mL SDV 2 mL 10 MG IVP (01:16)
[2021-03-31] MEDS: diphenhydrAMINE 50 mg/mL SDV 1mL 25 MG IVP (01:16)
[2021-03-31 02:06] VITALS: BP 138/67; PULSE 81; RESP 18; O2SAT 95
[2021-03-31 02:46] VITALS: BP 138/67; PULSE 81; RESP 18; O2SAT 95
== END 2021-03-31 02:48 | disposition home or self-care (01) ==
PROVIDERS: Emergency Provider Emergency Medicine
DX: U07.1 COVID-19 (principal); G20 Parkinson's disease
CPT/HCPCS: 71045; 80053; 84145; 85025; 96365; 96375; 99284; J1200; J2765; J3475; J7040

== ENCOUNTER 2021-04-07 15:43 | Emergency (ER) | payer OTHER, SELFPAY ==
[2021-04-07 16:08] VITALS: BP 149/92; PULSE 94; RESP 22; TEMP 36.8; O2SAT 94; BMI 69.4
--- NOTE | 2021-04-07 17:01 | XRR_ITS ---
PROCEDURE INFORMATION: Exam: XR Chest Exam date and time: 04/07/2021 5:01 PM Age: 46 years old Clinical indication: Cough and shortness of breath; Additional info: Post covid; SOB TECHNIQUE: Imaging protocol: XR of the chest. Views: 1 view. COMPARISON: CR XR chest 2V* [id number] 01/20/2021 3:33 PM FINDINGS: Lungs: Shallow inspiration with mild parenchymal crowding. The lungs are otherwise clear. Pleural spaces: Unremarkable. No pleural effusion. No pneumothorax. Heart/Mediastinum: Unremarkable. No cardiomegaly. Bones/joints: Thoracic scoliosis with fusion hardware. Old right rib fracture. XR/XR chest 1V portable [id number] IMPRESSION: 1. No acute finding.
--- NOTE | 2021-04-07 18:53 | W.ED.COVID ---
Documented by User: EDUARDO Roberson 04/07/21 20:13 HPI - COVID General: Chief Complaint: COVID symptoms Stated Complaint: COUGH,SOB, LOW O2 COV + ON 4TH Time Seen by Provider: 04/07/21 18:53 Triage information: Has fever, cough or shortness of breath. Exposure to COVID + person last 14 days History of Present Illness: HPI Narrative: 46-year-old female comes in today with complaints of increased shortness of breath. Patient was diagnosed with COVID-19 on March 21. Patient did have a chest x-ray on March 31 that showed some mild pneumonia. Patient had talked to her primary care today due to the fact that she just felt like she was not getting any better and they referred her to the ER. Patient does use inhalers for history of asthma. Patient is morbidly obese and has some arthritis. On exam patient has good air movement throughout lung benjamin. Heart rates regular. Vital signs are normal except for mild elevation of blood pressure at 149/92. Patient's oxygenation is 94% at rest on room air. Differential diagnosis includes COVID-19 pneumonia, respiratory failure, hypoxia secondary to COVID-19, dehydration. COVID 19 common symptoms: positive dyspnea COVID Results: SARS-CoV-2 RNA (RT-PCR) Detected (NOT DETECTED) A 02/05/20 11:50 02/05/20 Nasal/Oral Coronavirus 2019 PCR Not detected 03/03/20 16:59 03/03/20 Review of Systems Resp: Reports: dyspnea PFSH ED PFSH: Medical History Asthma Degenerative arthritis of right knee Hypertension Obesity Family History Other CAD (coronary artery disease) Cancer Diabetes Hypertension Social History Smoking and tobacco status: never smoked Second hand smoke exposure: No Smoking risk assessment/counseling performed?: No Alcohol intake: current Alcohol intake frequency: few times a month Desire information about alcohol rehabilitation?: No Counseling given: No Desire information about substance/drug rehabilitation?: No Counseling given: No Lives independently: Yes Household members: spouse Marital status: Current occupational status: employed Current occupation: Teacher Current occupational exposures/hazards: No History of recent travel: No Current gender identity: Female Physical Exam Const: COMMON NORMALS: patient oriented x3 and alert GENERAL APPEARANCE: well kempt NUTRITIONAL APPEARANCE: obese HENMT: COMMON NORMALS: normocephalic HEAD & SCALP: normocephalic Resp: COMMON NORMALS: normal respiratory effort AUSCULTATION: diminished lung sounds Cardio: COMMON NORMALS: regular rate and regular rhythm RATE: regular rate RHYTHM: regular rhythm Extremity: COMMON NORMALS: no pedal edema Neuro: COMMON NORMALS: patient oriented x3 SENSORIUM/ORIENTATION: Yes alert Psych: APPEARANCE: Yes well kempt Course Vital Signs: Vital signs: Vital Signs Temperature 98.2 F 04/07/21 16:08 Pulse Rate 94 04/07/21 16:08 Respiratory Rate 22 H 04/07/21 16:08 Blood Pressure 149/92 04/07/21 16:08 Pulse Oximetry 94 04/07/21 20:57 MDM - COVID MDM Narrative: Medical decision making narrative: 46-year-old female comes in today with shortness of breath increased with exertion. Patient has COVID-19 and just does not seem to be getting better from it she states on exam lungs are decreased in the bases. Patient O2 saturation is 94% on room air. Patient does have some increased dyspnea with movement but oxygen saturation stays at about 94% although her pulse rate does raise to 120 with movement. Patient reports no significant chest pain except with cough. Patient denies any bloody sputum. Review of the record noted that patient had a COVID-pneumonia chest x-ray on the . Patient tested positive for COVID-19 on the fourth. Differential diagnosis includes COVID-19 pneumonia, hypoxia, dyspnea, PE. Patient did have a D-dimer that was minimally elevated at 0.75, although Wells criteria is 1 due to patient having no other significant signs or symptoms of PE. I talked with patient about doing a CT scan for PE patient at this time wanted to wait and see if her symptoms worsened. I suspect that patient does have a PE is probably a small subsegmental that there is a debate on whether to treat or not. Patient will monitor for worsening chest pain and shortness of breath and return as needed. I discussed patient's use of oxygen and she feels that it would be helpful so she could get back to work. I encourage patient to continue drinking plenty of water and fluids and return to the ER for worsening symptoms. Patient stated understanding and agreed to plan. Lab Data: Labs: Lab Results 04/07/21 04/07/21 04/07/21 18:53 18:53 18:53 WBC 6.7 10^3/uL 10^3/ uL (4.0-10.0) RBC 5.67 10^6/uL H 10 ^6/uL (4.1-5.3) Hgb 16.4 g/dL H g/dL (11.5-15.3) Hct 51.0 % H % (37.0-47.0) MCV 89.9 fl fl (81-99) MCH 28.9 pg pg (28.0-34.0) MCHC 32.2 g/dL g/dL (30.0-36.0) RDW 14.0 % % (12.1-15.1) Plt Count 239 10^3/cmm 10^3 /cmm (130-400) MPV 10.6 fL H fL (7.4-10.4) Neut % (Auto) 70.7 % % Lymph % (Auto) 19.9 % % [place] % (Auto) 7.0 % % Eos % (Auto) 0.9 % % Baso % (Auto) 1.2 % % Neut # (Auto) 4.74 10^3/uL 10^3 /uL (1.8-7.7) Lymph # (Auto) 1.3 10^3/uL 10^3/ uL (0.8-4.8) [place] # (Auto) 0.5 10^3/uL 10^3/ uL (0.2-0.9) Eos # (Auto) 0.1 10^3/uL 10^3/ uL (0.0-0.8) Baso # (Auto) 0.1 10^3/uL 10^3/ uL (0.0-0.1) Nucleated RBC % (a uto) 0 % % Nucleated RBCs # 0.0 /100WBC /100W BC D-Dimer 0.79 ug/mIFEU H u g/mIFEU (0-0.59) Sodium 137 mmol/L mmol/L (136-145) Potassium 4.2 mmol/L mmol/L (3.5-5.1) Chloride 100 mmol/L mmol/L (98-107) Carbon Dioxide 24 mmol/L mmol/L (22-29) Anion Gap 17.2 (5-19) BUN 11 mg/dL mg/dL (6-20) Creatinine 0.8 mg/dL mg/dL (0.5-0.9) GFR Calculation 76.6 mL/min L mL/ min (90-130) Glucose 96 mg/dL mg/dL (65-115) Calculated Osmolal ity 283 mOsm/kg L mOs m/kg (285-295) Calcium 9.0 mg/dL mg/dL (8.5-10.5) Total Bilirubin 0.5 mg/dL mg/dL (0.15-1.2) AST 18 U/L U/L (0-32) ALT 27 U/L U/L (0-33) Alkaline Phosphata se 119 IU/L H IU/L (35-105) Total Protein 7.6 g/dL g/dL (6.6-8.7) Albumin 4.5 g/dL g/dL (3.5-5.2) Globulin 3.1 g/dL g/dL (1.3-4.6) Procalcitonin 0.04 ng/mL ng/mL (0-0.5) COVID Results: SARS-CoV-2 RNA (RT-PCR) Detected (NOT DETECTED) A 02/05/20 11:50 02/05/20 Nasal/Oral Coronavirus 2019 PCR Not detected 03/03/20 16:59 03/03/20 Discharge Plan Discharge Patient Disposition: Home Clinical Impression: Dyspnea due to COVID-19, Pneumonia due to COVID-19 virus Condition: Stable Prescriptions: No Action duloxetine 60 mg capsule,delayed release(DR/EC) 60 mg PO DAILY Qty: 90 RF: 3 cyclobenzaprine 10 mg tablet 10 mg PO TID PRN (Reason: muscle spasm) Qty: 270 RF: 3 tramadol 50 mg tablet 50 mg PO Q4H PRN (Reason: Pain) RF: 0 aspirin 81 mg tablet,delayed release (DR/EC) 81 mg PO DAILY RF: 0 montelukast 10 mg tablet 10 mg PO DAILY RF: 0 amlodipine 10 mg tablet 10 mg PO DAILY RF: 0 metoprolol succinate 25 mg tablet extended release 24 hr 12.5 mg PO DAILY RF: 0 Nucala 100 mg/mL auto-injector 100 mg SUBCUT .Monthly RF: 0 carbidopa-levodopa 10-100 mg tablet 1 tab PO QID RF: 0 mupirocin 2 % ointment 1 applic TOPICAL BID Qty: 22 RF: 2 Incruse Ellipta 62.5 mcg/actuation blister with device 1 inh INHALATION DAILY Qty: 30 RF: 3 fluticasone propionate [Flonase Allergy Relief] 50 mcg/actuation spray,suspension 1 spray intranasal DAILY RF: 0 azelastine 0.15 % (205.5 mcg) spray,non-aerosol 1 spray intranasal BID RF: 0 cholecalciferol (vitamin D3) 1,250 mcg (50,000 unit) capsule 50,000 unit PO DAILY RF: 0 ipratropium-albuterol 0.5 mg-3 mg(2.5 mg base)/3 mL solution for nebulization 3 ml inhalation QID Qty: 360 RF: 3 ibuprofen 800 mg Tablet 800 mg PO PRN PRN (Reason: FIBROMYALGIA) RF: 0 Advair Diskus 100-50 mcg/dose blister with device See Rx Instructions .ROUTE .COMPLEX RF: 0 albuterol sulfate 90 mcg/actuation HFA aerosol inhaler 2 puff INHALATION QID PRN (Reason: SHORTNESS OF BREATH') RF: 0 promethazine See Rx Instructions .ROUTE .COMPLEX RF: 0 Discharge Orders: Discharge ED (Routine); Ordered 04/07/21 Ordered By: Domo Barnes Other Ambulatory Orders: DME: Oxygen (Order) Location: None Selected Ordered By: Domo Barnes Referrals: Christina Rebolledo FNP [Primary Care Provider] - Discharge Diet: Usual diet Discharge Activity: Increase activity as tolerated Patient Instructions: Dyspnea (ED) Activity Restrictions/Additional Instructions: Home and rest. Drink plenty of fluids. Activity as tolerated. Follow-up with primary care in 1 week for recheck. Return to the ER for worsening chest pain, increased shortness of breath, or new concerns. Coding Level of Care Code ED Air Compressor Operator for Chg Fwd Exam Detailed Documented by User: Terrell Juan, DO 04/07/21 23:38 HPI - COVID General: Chief Complaint: COVID symptoms Stated Complaint: COUGH,SOB, LOW O2 COV + ON 4TH Time Seen by Provider: 04/07/21 18:53 COVID Results: SARS-CoV-2 RNA (RT-PCR) Detected (NOT DETECTED) A 02/05/20 11:50 02/05/20 Nasal/Oral Coronavirus 2019 PCR Not detected 03/03/20 16:59 03/03/20 PFSH ED PFSH: Medical History Asthma Degenerative arthritis of right knee Hypertension Obesity Family History Other CAD (coronary artery disease) Cancer Diabetes Hypertension Social History Smoking and tobacco status: never smoked Second hand smoke exposure: No Smoking risk assessment/counseling performed?: No Alcohol intake: current Alcohol intake frequency: few times a month Desire information about alcohol rehabilitation?: No Counseling given: No Desire information about substance/drug rehabilitation?: No Counseling given: No Lives independently: Yes Household members: spouse Marital status: Current occupational status: employed Current occupation: Teacher Current occupational exposures/hazards: No History of recent travel: No Current gender identity: Female Course Vital Signs: Vital signs: Vital Signs Temperature 98.2 F 04/07/21 16:08 Pulse Rate 94 04/07/21 16:08 Respiratory Rate 22 H 04/07/21 16:08 Blood Pressure 149/92 04/07/21 16:08 Pulse Oximetry 94 04/07/21 20:57 MDM - COVID MDM Narrative: Medical decision making narrative: This patient was originally seen by EDUARDO Godoy. I agree with his history, evaluation, and treatment. Lab Data: Labs: Lab Results 04/07/21 04/07/21 04/07/21 18:53 18:53 18:53 WBC 6.7 10^3/uL 10^3/ uL (4.0-10.0) RBC 5.67 10^6/uL H 10 ^6/uL (4.1-5.3) Hgb 16.4 g/dL H g/dL (11.5-15.3) Hct 51.0 % H % (37.0-47.0) MCV 89.9 fl fl (81-99) MCH 28.9 pg pg (28.0-34.0) MCHC 32.2 g/dL g/dL (30.0-36.0) RDW 14.0 % % (12.1-15.1) Plt Count 239 10^3/cmm 10^3 /cmm (130-400) MPV 10.6 fL H fL (7.4-10.4) Neut % (Auto) 70.7 % % Lymph % (Auto) 19.9 % % [place] % (Auto) 7.0 % % Eos % (Auto) 0.9 % % Baso % (Auto) 1.2 % % Neut # (Auto) 4.74 10^3/uL 10^3 /uL (1.8-7.7) Lymph # (Auto) 1.3 10^3/uL 10^3/ uL (0.8-4.8) [place] # (Auto) 0.5 10^3/uL 10^3/ uL (0.2-0.9) Eos # (Auto) 0.1 10^3/uL 10^3/ uL (0.0-0.8) Baso # (Auto) 0.1 10^3/uL 10^3/ uL (0.0-0.1) Nucleated RBC % (a uto) 0 % % Nucleated RBCs # 0.0 /100WBC /100W BC D-Dimer 0.79 ug/mIFEU H u g/mIFEU (0-0.59) Sodium 137 mmol/L mmol/L (136-145) Potassium 4.2 mmol/L mmol/L (3.5-5.1) Chloride 100 mmol/L mmol/L (98-107) Carbon Dioxide 24 mmol/L mmol/L (22-29) Anion Gap 17.2 (5-19) BUN 11 mg/dL mg/dL (6-20) Creatinine 0.8 mg/dL mg/dL (0.5-0.9) GFR Calculation 76.6 mL/min L mL/ min (90-130) Glucose 96 mg/dL mg/dL (65-115) Calculated Osmolal ity 283 mOsm/kg L mOs m/kg (285-295) Calcium 9.0 mg/dL mg/dL (8.5-10.5) Total Bilirubin 0.5 mg/dL mg/dL (0.15-1.2) AST 18 U/L U/L (0-32) ALT 27 U/L U/L (0-33) Alkaline Phosphata se 119 IU/L H IU/L (35-105) Total Protein 7.6 g/dL g/dL (6.6-8.7) Albumin 4.5 g/dL g/dL (3.5-5.2) Globulin 3.1 g/dL g/dL (1.3-4.6) Procalcitonin 0.04 ng/mL ng/mL (0-0.5) COVID Results: SARS-CoV-2 RNA (RT-PCR) Detected (NOT DETECTED) A 02/05/20 11:50 02/05/20 Nasal/Oral Coronavirus 2019 PCR Not detected 03/03/20 16:59 03/03/20 Discharge Plan Discharge Patient Disposition: Home Clinical Impression: Dyspnea due to COVID-19, Pneumonia due to COVID-19 virus Condition: Stable Prescriptions: No Action duloxetine 60 mg capsule,delayed release(DR/EC) 60 mg PO DAILY Qty: 90 RF: 3 cyclobenzaprine 10 mg tablet 10 mg PO TID PRN (Reason: muscle spasm) Qty: 270 RF: 3 tramadol 50 mg tablet 50 mg PO Q4H PRN (Reason: Pain) RF: 0 aspirin 81 mg tablet,delayed release (DR/EC) 81 mg PO DAILY RF: 0 montelukast 10 mg tablet 10 mg PO DAILY RF: 0 amlodipine 10 mg tablet 10 mg PO DAILY RF: 0 metoprolol succinate 25 mg tablet extended release 24 hr 12.5 mg PO DAILY RF: 0 Nucala 100 mg/mL auto-injector 100 mg SUBCUT .Monthly RF: 0 carbidopa-levodopa 10-100 mg tablet 1 tab PO QID RF: 0 mupirocin 2 % ointment 1 applic TOPICAL BID Qty: 22 RF: 2 Incruse Ellipta 62.5 mcg/actuation blister with device 1 inh INHALATION DAILY Qty: 30 RF: 3 fluticasone propionate [Flonase Allergy Relief] 50 mcg/actuation spray,suspension 1 spray intranasal DAILY RF: 0 azelastine 0.15 % (205.5 mcg) spray,non-aerosol 1 spray intranasal BID RF: 0 cholecalciferol (vitamin D3) 1,250 mcg (50,000 unit) capsule 50,000 unit PO DAILY RF: 0 ipratropium-albuterol 0.5 mg-3 mg(2.5 mg base)/3 mL solution for nebulization 3 ml inhalation QID Qty: 360 RF: 3 ibuprofen 800 mg Tablet 800 mg PO PRN PRN (Reason: FIBROMYALGIA) RF: 0 Advair Diskus 100-50 mcg/dose blister with device See Rx Instructions .ROUTE .COMPLEX RF: 0 albuterol sulfate 90 mcg/actuation HFA aerosol inhaler 2 puff INHALATION QID PRN (Reason: SHORTNESS OF BREATH') RF: 0 promethazine See Rx Instructions .ROUTE .COMPLEX RF: 0 Discharge Orders: Discharge ED (Routine); Ordered 04/07/21 Ordered By: Domo Barnes Other Ambulatory Orders: DME: Oxygen (Order) Location: None Selected Ordered By: Domo Barnes Referrals: Christina Rebolledo FNP [Primary Care Provider] - Discharge Diet: Usual diet Discharge Activity: Increase activity as tolerated Patient Instructions: Dyspnea (ED) Activity Restrictions/Additional Instructions: Home and rest. Drink plenty of fluids. Activity as tolerated. Follow-up with primary care in 1 week for recheck. Return to the ER for worsening chest pain, increased shortness of breath, or new concerns. Coding Level of Care Code ED Air Compressor Operator for Maurisio Fwd Exam Detailed
[2021-04-07 19:22] LABS: Basophils # 0.1 10^3/uL (0.0-0.1); Basophils % 1.2 %; Eosinophils # 0.1 10^3/uL (0.0-0.8); Eosinophils % 0.9 %; Hemoglobin 16.4 g/dL (11.5-15.3); Lymphocytes # 1.3 10^3/uL (0.8-4.8); Lymphocytes % 19.9 %; Mean Corpuscular HGB Conc 32.2 g/dL (30.0-36.0); Mean Corpuscular Hemoglobin 28.9 pg (28.0-34.0); Mean Corpuscular Volume 89.9 fl (81-99); Mean Platelet Volume 10.6 fL (7.4-10.4); Monocytes # 0.5 10^3/uL (0.2-0.9); Neutrophils # 4.74 10^3/uL (1.8-7.7); Neutrophils % 70.7 %; Nucleated Red Blood Cells % 0 %; Platelet Count 239 10^3/cmm (130-400); Red Blood Count 5.67 10^6/uL (4.1-5.3); White Blood Count 6.7 10^3/uL (4.0-10.0)
[2021-04-07 19:43] LABS: D Dimer 0.79 ug/mIFEU (0-0.59)
[2021-04-07 19:49] LABS: Alanine Aminotransferase 27 U/L (0-33); Albumin Level 4.5 g/dL (3.5-5.2); Alkaline Phosphatase 119 IU/L (35-105); Anion Gap 17.2 (5-19); Aspartate Amino Transferase 18 U/L (0-32); Blood Urea Nitrogen 11 mg/dL (6-20); Carbon Dioxide 24 mmol/L (22-29); Chloride 100 mmol/L (98-107); Globulin 3.1 g/dL (1.3-4.6); Glomerular Filtration Rate 76.6 mL/min (90-130); Glucose 96 mg/dL (65-115); Osmolality Calculated 283 mOsm/kg (285-295); Potassium 4.2 mmol/L (3.5-5.1); Sodium 137 mmol/L (136-145); Total Bilirubin 0.5 mg/dL (0.15-1.2); Total Protein 7.6 g/dL (6.6-8.7)
[2021-04-07 19:55] LABS: Procalcitonin 0.04 ng/mL (0-0.5)
[2021-04-07 20:07] VITALS: O2SAT 92; O2SAT 94
[2021-04-07 20:57] VITALS: O2SAT 94
== END 2021-04-07 20:32 | disposition home or self-care (01) ==
PROVIDERS: Physician Assistant; Emergency Provider Nurse Practitioner Family; PCP Nurse Practitioner Family
DX: U07.1 COVID-19 (principal); J12.82 Pneumonia due to coronavirus disease 2019; J45.909 Unspecified asthma, uncomplicated; I10 Essential (primary) hypertension; E66.9 Obesity, unspecified; Z68.44 Body mass index [BMI] 60.0-69.9, adult; R79.1 Abnormal coagulation profile; Z79.82 Long term (current) use of aspirin
CPT/HCPCS: 71045; 80053; 84145; 85025; 85378; 99282

== ENCOUNTER 2021-04-21 10:13 | Outpatient (CLI) | payer OTHER, SELFPAY ==
--- NOTE | 2021-04-21 10:18 | CT_ITS ---
WS: [id number] CTA CHEST. HISTORY: ELEVATED D DIMER TECHNIQUE: CT imaging of the thorax is performed with and without contrast. After noncontrast imaging is performed, CT angiogram is performed during injection of Omnipaque 350; 190 mL IV.. Sagittal and coronal reconstructions, sagittal and coronal MIP imaging is submitted. All CT scans at [facility] use at least one of these dose optimization techniques: automated exposure control; mA and/or k V adjustment per patient size (includes targeted exams where dose is matched to clinical indication); or iterative reconstruction. DLP: 2075.58 mGy.cm COMPARISON: 12/18/2019 Very Limited opacification of pulmonary arteries. Inadequate contrast bolus to exclude pulmonary embo lism. There is no large central pulmonary embolism. There is also significant artifact from the patie nt's thoracolumbar fusion hardware with significant beam hardening artifact. There is also motion art ifact. Bilaterally areas of scattered groundglass attenuation. Detail is being obscured by motion. No dense areas of consolidation. No pneumothorax. Mild enlargement the heart chambers. No pericardial e ffusion. No adenopathy. 18 mm nodule in the lower pole LEFT thyroid. Small hiatal hernia. Hepatic steatosis. CT/CT angio chest [id number] IMPRESSION: 1. Suboptimal evaluation of the pulmonary arteries. Centrally there is no larg e pulmonary embolism. 2. Mild diffuse groundglass attenuation from pneumonitis. 3. No pneumothorax.
[2021-04-21] MEDS: iohexol 350 mg/mL 100 mL Btl IV (11:15)
== END 2021-04-21 10:14 | disposition home or self-care (01) ==
LOC: RAD 10:15
PROVIDERS: PCP Nurse Practitioner Family; Visit Provider Nurse Practitioner Family
DX: R79.89 Other specified abnormal findings of blood chemistry (principal)
CPT/HCPCS: 71275

== ENCOUNTER 2021-04-21 11:21 | Emergency (ER) | payer OTHER, SELFPAY ==
[2021-04-21 11:27] VITALS: BP 176/119; PULSE 99; RESP 22; TEMP 36.7; O2SAT 98; BMI 69.4
[2021-04-21 11:45] VITALS: BP 171/94; PULSE 100; RESP 16; O2SAT 92
--- NOTE | 2021-04-21 11:55 | W.ED.EXTPRO ---
HPI - Extremity Problem General: Chief complaint: Extremity Injury, Lower Stated complaint: possible blood clot, R leg swelling Time Seen by Provider: 04/21/21 11:39 History of Present Illness: 46-year-old female presents emergency room from the clinic. Earlier today she had a CTA of her chest she had an elevated D-dimer at the nurse practitioner's office. Her legs been swelling. Patient is morbidly obese chronically has some degree of swelling down sitting her right leg is more uncomfortable. She is getting some mild exertional dyspnea at times. CTA of the chest was negative. MD Complaint: extremity swelling Onset (ago): day(s) Location: right Quality: aching Radiation: distal Relieving factors: immobilization and elevation Exacerbating factors: weight bearing, walking and palpation Associated symptoms: Deny arthralgias, chest pain, fever(s), myalgias, rash or short of breath Review of Systems Const: Denies: fever(s) ENMT: Denies: throat pain, ear or mastoid pain, nasal discharge or nasal congestion Card: Denies: chest pain Resp: Denies: dyspnea, productive cough or non-productive cough GI: Denies: abdominal pain, nausea, vomiting, hematemesis, coffee ground emesis, diarrhea, constipation, bloating, hematochezia or melena : Denies: flank pain, difficulty voiding, dysuria, urinary frequency or urinary urgency Skin/Breast: Denies: rash PFSH ED PFSH: Medical History Asthma Degenerative arthritis of right knee Hypertension Obesity Family History Other CAD (coronary artery disease) Cancer Diabetes Hypertension Social History Smoking and tobacco status: never smoked Second hand smoke exposure: No Smoking risk assessment/counseling performed?: No Alcohol intake: current Alcohol intake frequency: few times a month Desire information about alcohol rehabilitation?: No Counseling given: No Desire information about substance/drug rehabilitation?: No Counseling given: No Lives independently: Yes Household members: spouse Marital status: Current occupational status: employed Current occupation: Teacher Current occupational exposures/hazards: No History of recent travel: No Current gender identity: Female Physical Exam Const: COMMON NORMALS: no acute distress GENERAL APPEARANCE: cooperative and comfortable ORIENTATION/CONSCIOUSNESS: Yes awake, Yes oriented to person, Yes oriented to place and Yes oriented to time HENMT: COMMON NORMALS: normocephalic, atraumatic and hearing grossly normal bilaterally HEAD & SCALP: normocephalic and atraumatic Neck/C-Spine: COMMON NORMALS: no JVD Resp: COMMON NORMALS: normal respiratory effort, No retractions, No use of accessory muscles and clear to auscultation bilaterally AUSCULTATION: clear to auscultation bilaterally Cardio: COMMON NORMALS: no JVD, regular rate, regular rhythm and No murmurs present (Cardio) RATE: regular rate RHYTHM: regular rhythm GI: COMMON NORMALS: Soft to palpation and No hepatosplenomegaly present AUSCULTATION: Yes normoactive bowel sounds PALPATION: Yes Soft to palpation, No Tenderness to palpation present (GI), No Guarding due to palpation present (GI) and Yes No hepatosplenomegaly present Extremity: COMMON NORMALS: capillary refill normal GENERAL: Yes calf tenderness (Right) and Yes edema (Chronic difficult to distinguish difference between left and right) Neuro: SENSORIUM/ORIENTATION: Yes oriented to person, Yes oriented to place and Yes oriented to time Skin: COMMON NORMALS: no rashes or lesions noted GENERAL SKIN EXAM: no rashes or lesions noted Course Vital Signs: Vital signs: Vital Signs Temperature 98.1 F 04/21/21 11:27 Pulse Rate 103 H 04/21/21 13:16 Respiratory Rate 14 04/21/21 13:16 Blood Pressure 180/110 04/21/21 13:16 Pulse Oximetry 94 04/21/21 13:16 MDM - Extremity (Nontraumatic) Medical Decision Making CTA and venous duplex negative. I think some of this is due to her recent Covid infection some of it in part due to her history of persistent asthma and some of it due to her morbid obesity. Follow-up with her primary care doctor. Medical Records I reviewed the patient's medical records. Lab Data I reviewed the patient's lab results. Discharge Plan Discharge Patient Disposition: Home Clinical Impression: Edema, Dyspnea due to COVID-19, Post-COVID syndrome, History of asthma Condition: Stable Prescriptions: No Action duloxetine 60 mg capsule,delayed release(DR/EC) 60 mg PO DAILY Qty: 90 3RF cyclobenzaprine 10 mg tablet 10 mg PO TID PRN (Reason: muscle spasm) Qty: 270 3RF tramadol 50 mg tablet 50 mg PO Q4H PRN (Reason: Pain) 0RF aspirin 81 mg tablet,delayed release (DR/EC) 81 mg PO DAILY 0RF montelukast 10 mg tablet 10 mg PO DAILY 0RF amlodipine 10 mg tablet 10 mg PO DAILY 0RF Rx Instructions: PT STATES SHE NOW TAKES 20 MG DAILY. LAST RX FILLED 11/11/2019 FOR 90 DAYS, 10 MG DAILY. metoprolol succinate 25 mg tablet extended release 24 hr 12.5 mg PO DAILY 0RF Nucala 100 mg/mL auto-injector 100 mg SUBCUT .Monthly 0RF carbidopa-levodopa 10-100 mg tablet 1 tab PO QID 0RF mupirocin 2 % ointment 1 applic TOPICAL BID Qty: 22 2RF Rx Instructions: Apply to affected area on left thigh twice daily until healed Incruse Ellipta 62.5 mcg/actuation blister with device 1 inh INHALATION DAILY Qty: 30 3RF fluticasone propionate [Flonase Allergy Relief] 50 mcg/actuation spray,suspension 1 spray intranasal DAILY 0RF Rx Instructions: administer into each nostril azelastine 0.15 % (205.5 mcg) spray,non-aerosol 1 spray intranasal BID 0RF Rx Instructions: administer into each nostril cholecalciferol (vitamin D3) 1,250 mcg (50,000 unit) capsule 50,000 unit PO DAILY 0RF ipratropium-albuterol 0.5 mg-3 mg(2.5 mg base)/3 mL solution for nebulization 3 ml inhalation QID Qty: 360 3RF ibuprofen 800 mg Tablet 800 mg PO PRN PRN (Reason: FIBROMYALGIA) 0RF Advair Diskus 100-50 mcg/dose blister with device See Rx Instructions .ROUTE .COMPLEX 0RF Rx Instructions: inhaled 1 DOSE BID. albuterol sulfate 90 mcg/actuation HFA aerosol inhaler 2 puff INHALATION QID PRN (Reason: SHORTNESS OF BREATH') 0RF promethazine See Rx Instructions .ROUTE .COMPLEX 0RF Rx Instructions: USE DIRECTED FOR COUGH Discharge Orders: Discharge ED (Routine); Ordered 04/21/21 Ordered By: Darrel Champion Referrals: Kesha,Christina, SCREW SUPERVISOR [Primary Care Provider] - Discharge Diet: Usual diet Discharge Activity: Increase activity as tolerated Patient Instructions: Opioid Safety Coding Level of Care Code ED Medical Science Liaison for Maurisio Zimmer
--- NOTE | 2021-04-21 12:28 | USCV_ITS ---
Jacinto Brunilda Age: 46 Gender: F : 1975 Exam Date: 04/21/2021 12:40 Ordering Phys: Darrel Champion DO Technologist: [place] [facility] [place] RT LEG PAIN AND SWELLING PROCEDURES: Venous duplex imaging was performed in only the right lower extremity. The following venous structures were evaluated: common femoral vein, profunda vein, proximal portion of the greater saphenous vein, superficial femoral vein, and the popliteal vein. FINDINGS: Normal 2-D Doppler and augmentation and compressibility throughout the lower extremity venous structures. Additional imaging through the proximal calf veins also reveals no thrombus. Limited evaluation of the greater saphenous vein is patent with no thrombus. CONCLUSIONS No DVT right lower extremity. Dr. Katherine Fuller DO (Electronically Signed) Final Date: 21 April 2021 14:05 S
[2021-04-21 13:01] VITALS: BP 169/90; PULSE 105; RESP 14; O2SAT 94
[2021-04-21 13:16] VITALS: BP 180/110; PULSE 103; RESP 14; O2SAT 94
--- NOTE | 2021-04-21 13:23 | PC.NURSE ---
PT HYPERTENSIVE UPON DISCHARGE, PT ENDORSES NOT TAKING HER MEDS THIS MORNING DUE TO CT SCAN, I WASN'T SURE IF I COULD TAKE THEM. MD DAUGHERTY OKAY'D CONTINUATION WITH HER DISCHARGE, BUT TO TELL PATIENT TO TAKE HER MEDS. PATIENT REMINDED TO TAKE MEDS AND SENT HOME.
== END 2021-04-21 13:24 | disposition home or self-care (01) ==
PROVIDERS: Emergency Provider Family Medicine; PCP Nurse Practitioner Family
DX: R60.0 Localized edema (principal); U09.9 Post COVID-19 condition, unspecified; R06.00 Dyspnea, unspecified; J45.909 Unspecified asthma, uncomplicated; Z79.82 Long term (current) use of aspirin; I10 Essential (primary) hypertension
CPT/HCPCS: 93971; 99283

== ENCOUNTER → 2021-07-17 16:28 | Outpatient (BNVA) | payer OTHER, SELFPAY | PROVIDERS: PCP Nurse Practitioner Family; Visit Provider Internal Medicine Critical Care Medicine | DX: E04.1 Nontoxic single thyroid nodule (principal); J45.51 Severe persistent asthma with (acute) exacerbation; E66.9 Obesity, unspecified; D75.1 Secondary polycythemia; I10 Essential (primary) hypertension; G20 Parkinson's disease | CPT/HCPCS: 36415; 84443 ==

== ENCOUNTER 2021-09-05 15:00 | Outpatient (CLI) | payer OTHER, SELFPAY | END 2021-09-05 15:01 | disposition home or self-care (01) | LOC: SLEEP 09-06 14:05 | PROVIDERS: PCP Nurse Practitioner Family; Visit Provider Internal Medicine Critical Care Medicine | DX: J96.11 Chronic respiratory failure with hypoxia (principal) | CPT/HCPCS: 94762 ==

== ENCOUNTER 2021-09-26 06:02 | Outpatient (CLI) | payer OTHER, SELFPAY ==
--- NOTE | 2021-09-26 06:15 | US_ITS ---
WS: [id number] THYROID ULTRASOUND (TI-RADS CRITERIA) History: Nodule.. Technique: Ultrasound examination of the thyroid and adjacent soft tissues is performed. FINDINGS: Right lobe: 3.4 cm x 1.7 cm x 1.5 cm. Thyroid is normal size with heterogeneity throughout. No discrete mass. Lymph nodes: None. Left lobe: 4.3 cm x 1.8 cm x 2.1 cm. Thyroid gland is very slightly enlarged and heterogeneous. Dominant nodule in the mid gland measures 1.8 x 2.1 x 2.2 cm. Lymph nodes: None. NODULE: 1 Size: 1.8 x 2.1 x 2.2 cm Location: Mid Composition: Solid/almost completely solid (2) Echogenicity: Hypoechoic (2) Shape: [id number] (3) Margins: Ill-defined (0) Echogenic foci: None (0) ACR TI-RADS total points: 7 Isthmus: 0.4 cm. US/US thyroid [id number] Impression: TR5 Recommendation:Ultrasound-guided fine-needle aspiration recommended. LEFT thyro id nodule.
== END 2021-09-26 06:03 | disposition home or self-care (01) ==
PROVIDERS: PCP Nurse Practitioner Family; Visit Provider Internal Medicine Critical Care Medicine
DX: E04.1 Nontoxic single thyroid nodule (principal)
CPT/HCPCS: 76536

== ENCOUNTER → 2021-10-18 12:02 | Outpatient (BNVA) | payer OTHER, SELFPAY | PROVIDERS: PCP Nurse Practitioner Family; Visit Provider Internal Medicine Critical Care Medicine | DX: D75.1 Secondary polycythemia (principal); J45.51 Severe persistent asthma with (acute) exacerbation; E66.9 Obesity, unspecified; E04.1 Nontoxic single thyroid nodule | CPT/HCPCS: 36415; 85025 ==

== ENCOUNTER 2022-04-20 14:32 | Outpatient (CLI) | payer OTHER, SELFPAY ==
--- NOTE | 2022-04-20 14:39 | MM_ITS ---
WS: [id number] Bilateral screening 3D tomosynthesis digital mammogram, 04/20/2022 Clinical Data: SCREENING Comparison: 04/04/2020, 01/20/2019, 06/10/2017, 05/04/2016, 02/09/2015, 09/10/2013, 03/20/2012, 11/10/2010. Findings: The breast parenchymal pattern shows fibroglandular tissue No spiculated masses or clustered calcific ations are seen. There are no secondary signs of carcinoma. MM/[place] [id number] Impression: 1. Negative bilateral mammogram unchanged. 2. Recommend annual screening mammograms. BIRADS: 1-Negative FOLLOW UP: 1 Year Follow-up The CAD insurance checker was used.
== END 2022-04-20 14:33 | disposition home or self-care (01) ==
LOC: RAD 14:32
PROVIDERS: PCP Nurse Practitioner Family; Visit Provider Nurse Practitioner Family
DX: Z12.31 Encounter for screening mammogram for malignant neoplasm of breast (principal)
CPT/HCPCS: 77063; 77067

== ENCOUNTER → 2022-07-26 15:41 | Outpatient (BNVA) | payer OTHER, SELFPAY | PROVIDERS: PCP Nurse Practitioner Family; Visit Provider Internal Medicine | DX: E66.9 Obesity, unspecified (principal); E03.9 Hypothyroidism, unspecified; J30.2 Other seasonal allergic rhinitis | CPT/HCPCS: 82785; 84305; 86003; 99204 ==

== ENCOUNTER 2022-08-06 07:29 | Outpatient (CLI) | payer OTHER, SELFPAY ==
[2022-08-06 08:58] LABS: Urine Creatinine 85 mg/dL (28-217)
[2022-08-06 09:26] LABS: Total Volume Urine 1400 ml
[2022-08-16 09:39] LABS: Total Urine 1400 mL; Urine Creatinine 1.04 g/24 h (0.50-2.15)
== END 2022-08-06 07:30 | disposition home or self-care (01) ==
LOC: LAB 07:32
PROVIDERS: PCP Nurse Practitioner Family; Visit Provider Internal Medicine
DX: E03.9 Hypothyroidism, unspecified (principal); E66.9 Obesity, unspecified
CPT/HCPCS: 82530; 82570

== ENCOUNTER 2022-08-21 10:56 | Outpatient (CLI) | payer OTHER, SELFPAY ==
[2022-08-21 11:44] LABS: Amylase 22 U/L (28-100); Lipase 16 U/L (13-60)
== END 2022-08-21 10:57 | disposition home or self-care (01) ==
LOC: LAB 11:11
PROVIDERS: PCP Nurse Practitioner Family; Visit Provider Nurse Practitioner Family
DX: R10.10 Upper abdominal pain, unspecified (principal)
CPT/HCPCS: 82150; 83690

== ENCOUNTER → 2022-09-06 09:47 | Outpatient (BNVA) | payer OTHER, SELFPAY | PROVIDERS: PCP Nurse Practitioner Family; Visit Provider Internal Medicine Pulmonary Disease | DX: J45.51 Severe persistent asthma with (acute) exacerbation (principal); E66.9 Obesity, unspecified; D75.1 Secondary polycythemia; E04.1 Nontoxic single thyroid nodule; J82.83 Eosinophilic asthma; Z68.45 Body mass index [BMI] 70 or greater, adult; Z86.16 Personal history of COVID-19 | CPT/HCPCS: 99214 ==

== ENCOUNTER → 2022-10-10 15:46 | Outpatient (BNVA) | payer OTHER, SELFPAY | PROVIDERS: PCP Nurse Practitioner Family; Visit Provider Internal Medicine | DX: E03.9 Hypothyroidism, unspecified (principal); E66.9 Obesity, unspecified; Z79.890 Hormone replacement therapy; Z68.45 Body mass index [BMI] 70 or greater, adult | CPT/HCPCS: 36415; 84439; 84443; 99214 ==

== ENCOUNTER 2022-12-01 14:44 | Emergency (ER) | payer OTHER, SELFPAY ==
--- NOTE | 2022-12-01 15:13 | XRR_ITS ---
PROCEDURE INFORMATION: Exam: XR Right Femur Exam date and time: 12/01/2022 3:19 PM Age: 47 years old Clinical indication: Injury or trauma; Fall; Blunt trauma; Thigh or upper leg; Right; Additional info: Pain post fall TECHNIQUE: Imaging protocol: Radiologic exam of the right femur. Views: 2 views. COMPARISON: CR XR hip RT 2-3V wo/w pel* [id number] 11/28/2022 11:43 AM FINDINGS: Bones/joints: Mild-moderate arthritic changes involving the right knee with moderate-large right knee joint effusion. Otherwise, normal-appearing right femur Soft tissues: Otherwise, unremarkable. XR/XR femur RT min 2V* [id number] IMPRESSION: Arthritic changes right knee. Small-moderate right knee joint effusion. Otherwise, unremarkable right femur.
--- NOTE | 2022-12-01 15:13 | CTR_ITS ---
PROCEDURE INFORMATION: Exam: CT Pelvis Without Contrast; Skeletal Exam date and time: 12/01/2022 3:35 PM Age: 47 years old Clinical indication: Injury or trauma; Fall; Blunt trauma (contusions or hematomas); Right; Hip; Additional info: Pain post fall TECHNIQUE: Imaging protocol: Computed tomography of the pelvis without contrast. Exam focused on the skeleton. Post processing is performed, and sagittal and coronal CT images are reconstructed of the entire imaged area. Radiation optimization: All CT scans at this facility use at least one of these dose optimization techniques: automated exposure control; mA and/or kV adjustment per patient size (includes targeted exams where dose is matched to clinical indication); or iterative reconstruction. REPORTING DATA: Count of CT and Cardiac NM exams in prior 12 months: This patient has received 0 known CTs and 0 known cardiac nuclear medicine studies in the 12 months prior to the current study. COMPARISON: CR XR hip RT 2-3V wo/w pel* [id number] 11/28/2022 11:43 AM RADIATION DOSE METRICS: Total DLP (mGy-cm): 1894.81 FINDINGS: Bones/joints: No previous CT scans. Normal osseous structures of the pelvis. Specifically, no pelvic or hip fracture. Mild-moderate degenerative changes in the visualized lower lumbar spine. Unremarkable visualized body wall. Soft tissue structures of the pelvis are, otherwise, within normal limits. Soft tissues: See Bones/joints finding. CT/CT pelvis wo con [id number] IMPRESSION: No significant pelvic abnormality. No fracture.
--- NOTE | 2022-12-01 15:15 | W.ED.LOWEXIN ---
HPI - Extremity Injury (Lower) General: Chief Complaint: Back Pain/Injury Stated Complaint: fall, back and hip pain Time Seen by Provider: 12/01/22 14:59 History of Present Illness: 47-year-old morbidly obese female presents emergency room with right knee pain after a fall on Saturday. Patient was initially seen and evaluated by primary physician and had a negative x-ray done but noticed increased pain within the past few days. Described the pain as sharp sensation with severity of 9 out of 10 mostly around the right hip. Increased pain with range of motion and weightbearing. Patient has any numbness or tingling to the lower extremity. Patient has any other injury. No head injury or loss of consciousness. Review of Systems General: Reports: 10 or more systems reviewed and unremarkable except in HPI and below Musc: Reports: extremity pain, joint pain and limited range of motion PFSH ED PFSH: Medical History Asthma COVID-19 long hauler Deep vein blood clot of right lower extremity Degenerative arthritis of right knee Hypertension Migraines Obesity Parkinson disease Parkinsons disease Surgical History H/O: hysterectomy Family History Other CAD (coronary artery disease) Cancer Diabetes Hypertension Social History Smoking and tobacco status: never smoked Second hand smoke exposure: No Smoking risk assessment/counseling performed?: No Alcohol intake: current Alcohol intake frequency: few times a month Desire information about alcohol rehabilitation?: No Counseling given: No Substance/Drug Use: never Desire information about substance/drug rehabilitation?: No Counseling given: No Lives independently: Yes Household members: spouse Marital status: Current occupational status: employed Current occupation: Teacher Current occupational exposures/hazards: No Do you think of yourself as: Straight/Heterosexual Current gender identity: Female Physical Exam Const: COMMON NORMALS: no acute distress, average body habitus, patient oriented x3, no limitations, healthy appearing, alert and well nourished Neck/C-Spine: COMMON NORMALS: no JVD Resp: COMMON NORMALS: normal respiratory effort, No retractions, No use of accessory muscles, clear to auscultation bilaterally and percussion normal AUSCULTATION: clear to auscultation bilaterally PERCUSSION: percussion normal Cardio: COMMON NORMALS: no JVD, regular rate, regular rhythm, S1 normal heart sound present, S2 normal heart sound present, No gallops present (Cardio), No clicks present (Cardio), No murmurs present (Cardio), No rub (Cardio) and Peripheral pulses 2+ throughout RATE: regular rate RHYTHM: regular rhythm HEART SOUNDS: S1 normal heart sound present and S2 normal heart sound present PERIPHERAL PULSES: Peripheral pulses 2+ throughout Extremity: RIGHT LOWER EXTREMITY: Yes hip joint (Pain upon palpation mostly on the lateral aspect of the right hip. Obvious) Right hip: Yes inspection (No obvious deformity or rotation or shortening.), Yes palpation (Pain upon palpation mostly on the lateral aspect and anterior aspect of the) and Yes ROM (Limited range of motion due to pain.) Neuro: COMMON NORMALS: patient oriented x3 SENSORIUM/ORIENTATION: Yes alert Skin: COMMON NORMALS: no rashes or lesions noted, no wounds, turgor normal, no jaundice, no petechiae and no mottling GENERAL SKIN EXAM: no rashes or lesions noted and turgor normal Course Vital Signs: Vital signs: Vital Signs Temperature 98.2 F 12/01/22 15:20 Pulse Rate 76 12/01/22 15:20 Respiratory Rate 18 12/01/22 15:49 Blood Pressure 200/108 12/01/22 15:20 Pulse Oximetry 98 12/01/22 15:20 Oxygen Delivery Me thod Room Air 12/01/22 15:20 MDM - Extremity Injury (Lower) Medical Decision Making Patient made comfortable emergency room. Patient was given IM pain medication, CT and x-ray performed. Patient reassured after discussing the CT finding with the patient. Testi Lab Data Radiology Impressions Femur X-Ray 12/01/22 15:13 IMPRESSION: Arthritic changes right knee. Small-moderate right knee joint effusion. Otherwise, unremarkable right femur. Pelvis CT 12/01/22 15:13 IMPRESSION: No significant pelvic abnormality. No fracture. XR interpretation done by ED provider, pending radiology final review Discharge Plan Discharge Patient Disposition: Home Clinical Impression: Degenerative arthritis of right knee, Contusion, Sprain and strain Condition: Stable Prescriptions: New lidocaine 5 % adhesive patch,medicated 1 patch topical Q24H Qty: 15 0RF Rx Instructions: leave on most painful area for up to 12 hrs tramadol 50 mg tablet 50 mg PO Q8H PRN (Reason: pain) Qty: 20 0RF No Action duloxetine 60 mg capsule,delayed release(DR/EC) 60 mg PO DAILY Qty: 90 3RF cyclobenzaprine 10 mg tablet 10 mg PO TID PRN (Reason: muscle spasm) Qty: 270 3RF tramadol 50 mg tablet 50 mg PO Q4H PRN (Reason: Pain) aspirin 81 mg tablet,delayed release (DR/EC) 81 mg PO DAILY amlodipine 10 mg tablet 10 mg PO DAILY Rx Instructions: PT STATES SHE NOW TAKES 20 MG DAILY. LAST RX FILLED 11/11/2019 FOR 90 DAYS, 10 MG DAILY. metoprolol succinate 25 mg tablet extended release 24 hr 12.5 mg PO DAILY mupirocin 2 % ointment 1 applic TOPICAL BID Qty: 22 2RF Rx Instructions: Apply to affected area on left thigh twice daily until healed fluticasone propionate [Flonase Allergy Relief] 50 mcg/actuation spray,suspension 1 spray intranasal DAILY Rx Instructions: administer into each nostril azelastine 0.15 % (205.5 mcg) spray,non-aerosol 1 spray intranasal BID Rx Instructions: administer into each nostril cholecalciferol (vitamin D3) 1,250 mcg (50,000 unit) capsule 50,000 unit PO DAILY carbidopa-levodopa 25-100 mg tablet 1 tab PO QID Nurtec ODT 75 mg tablet,disintegrating PO PRN metformin 500 mg tablet extended release 24 hr 1,000 mg PO BID 90 Days Qty: 360 0RF fluticasone propion-salmeterol [Advair Diskus] 100-50 mcg/dose blister with device 1 inh inhalation BID Qty: 60 6RF entacapone 200 mg tablet 200 mg PO QID Rx Instructions: administer at the same time as l-dopa/carbidopa dose Victoza 3-Pernell 0.6 mg/0.1 mL (18 mg/3 mL) pen injector See Rx Instructions SUBCUT DAILY 60 Days Qty: 27 3RF Rx Instructions: subcutaneously daily; 0.6mg daily for 1 week, 1.2 daily for 1 week and then 1.8mg daily ipratropium-albuterol 0.5 mg-3 mg(2.5 mg base)/3 mL solution for nebulization 3 ml inhalation QID Qty: 360 3RF Nucala 100 mg/mL auto-injector 100 mg SUBCUT .Monthly Qty: 1 12RF Rx Instructions: PA approved from 08/09/22- 08/30/23 montelukast [Singulair] 10 mg tablet 10 mg PO DAILY Qty: 30 4RF levothyroxine 25 mcg tablet See Rx Instructions .ROUTE .COMPLEX Qty: 90 0RF Dose Instruction: TAKE ONE TABLET BY MOUTH DAILY Rx Instructions: TAKE ONE TABLET BY MOUTH DAILY ibuprofen 800 mg Tablet 800 mg PO PRN PRN (Reason: FIBROMYALGIA) albuterol sulfate 90 mcg/actuation HFA aerosol inhaler 2 puff INHALATION QID PRN (Reason: SHORTNESS OF BREATH') promethazine See Rx Instructions .ROUTE .COMPLEX Rx Instructions: USE DIRECTED FOR COUGH Reglan 10 mg tablet 10 mg PO TID PRN (Reason: migraine headache) Qty: 10 0RF Rx Instructions: taken with benadryl Discharge Orders: Discharge ED (Routine); Ordered 12/01/22 Ordered By: Joyce Faith Referrals: Christina Rebolledo, MECHANICAL ENGINEERING MANAGER [Primary Care Provider] - Patient Instructions: Opioid Safety, Pain Management Coding Level of Care Code ED Refrigeration Engine Operator for Maurisio Zimmer
[2022-12-01 15:20] VITALS: BP 200/108; PULSE 76; RESP 18; TEMP 36.8; O2SAT 98; BMI 69.4
[2022-12-01 15:49] VITALS: RESP 18
[2022-12-01] MEDS: morphine 4 mg/mL SDV 1 mL IM (15:49)
[2022-12-01 17:43] VITALS: BP 140/79; PULSE 68; O2SAT 99
== END 2022-12-01 17:45 | disposition home or self-care (01) ==
PROVIDERS: Emergency Provider Family Medicine; PCP Nurse Practitioner Family
DX: M17.11 Unilateral primary osteoarthritis, right knee (principal); T14.8XXA Other injury of unspecified body region, initial encounter; Z79.82 Long term (current) use of aspirin; Z79.84 Long term (current) use of oral hypoglycemic drugs; I10 Essential (primary) hypertension; G20 Parkinson's disease; W19.XXXA Unspecified fall, initial encounter
CPT/HCPCS: 72192; 73552; 96372; 99284; J2270

== ENCOUNTER → 2022-12-17 11:12 | Outpatient (BNVA) | payer OTHER, SELFPAY | PROVIDERS: PCP Nurse Practitioner Family; Visit Provider Internal Medicine | DX: E03.9 Hypothyroidism, unspecified (principal); E66.9 Obesity, unspecified; Z79.890 Hormone replacement therapy; Z68.44 Body mass index [BMI] 60.0-69.9, adult | CPT/HCPCS: 36415; 84439; 84443; 99214 ==

== ENCOUNTER → 2023-02-11 09:50 | Outpatient (BNVA) | payer OTHER, SELFPAY | PROVIDERS: PCP Nurse Practitioner Family; Visit Provider Nurse Practitioner Family | DX: D17.1 Benign lipomatous neoplasm of skin and subcutaneous tissue of trunk (principal); L90.5 Scar conditions and fibrosis of skin; D22.39 Melanocytic nevi of other parts of face; L57.8 Other skin changes due to chronic exposure to nonionizing radiation | CPT/HCPCS: 99213 ==

== ENCOUNTER 2023-03-12 16:04 | Outpatient (CLI) | payer OTHER, SELFPAY ==
[2023-03-12 20:48] LABS: Free T4 Free Thyroxine 1.57 ng/dL (0.82-1.77); Thyroid Stimulating Hormone 4.21 uIU/mL (0.27-4.20)
== END 2023-03-12 16:05 | disposition home or self-care (01) ==
LOC: LAB 16:06
PROVIDERS: PCP Nurse Practitioner Family; Visit Provider Internal Medicine
DX: E03.9 Hypothyroidism, unspecified (principal)
CPT/HCPCS: 36415; 84439; 84443

== ENCOUNTER → 2023-03-13 07:45 | Outpatient (BNVA) | payer OTHER, SELFPAY | PROVIDERS: PCP Nurse Practitioner Family; Visit Provider Internal Medicine | DX: E03.9 Hypothyroidism, unspecified (principal); E66.9 Obesity, unspecified; G20.A1 Parkinson's disease without dyskinesia, without mention of fluctuations; Z79.890 Hormone replacement therapy; Z68.45 Body mass index [BMI] 70 or greater, adult | CPT/HCPCS: 99214 ==

== ENCOUNTER → 2023-03-26 14:56 | Outpatient (BNVA) | payer OTHER, SELFPAY | PROVIDERS: PCP Nurse Practitioner Family; Visit Provider Dermatology | DX: D17.1 Benign lipomatous neoplasm of skin and subcutaneous tissue of trunk (principal); D17.21 Benign lipomatous neoplasm of skin and subcutaneous tissue of right arm; D22.5 Melanocytic nevi of trunk | CPT/HCPCS: 99213 ==

== ENCOUNTER 2023-04-22 12:55 | Outpatient (CLI) | payer OTHER, SELFPAY ==
--- NOTE | 2023-04-22 13:08 | MM_ITS ---
WS: [id number] DIAGNOSTIC BILATERAL DIGITAL BREAST TOMOSYNTHESIS MAMMOGRAPHY WITH CAD Bilateral breast ultrasound, limited. HISTORY: PAT BREAST DISCOLORATION COMPARISON: 05/04/2016, 04/20/2012 and 04/04/2020 TECHNIQUE: Bilateral craniocaudad, mediolateral oblique, and mediolateral views are submitted with to mosynthshailesh and ODETTE. Computer aided detection utilized. Breast composition: There are scattered areas of fibroglandular density. Scattered asymmetries within each breast. There are also additional bilateral calcifications. No obvious change since 04/04/2020. There are no new areas of distortion. Bilateral breast ultrasound, limited. Ultrasound directed to the areas of breast discoloration. Ultrasound is directed to the lateral aspect of each breast at the area of discoloration. There is no mass or skin thickening. No shadowing. No significant edema. IMPRESSION: MM/[place] [id number] BI-RADS: 2-Benign FOLLOW UP: 1 Year Follow-up
--- NOTE | 2023-04-22 13:43 | US_ITS ---
WS: [id number] DIAGNOSTIC BILATERAL DIGITAL BREAST TOMOSYNTHESIS MAMMOGRAPHY WITH CAD Bilateral breast ultrasound, limited. HISTORY: PAT BREAST DISCOLORATION COMPARISON: 05/04/2016, 04/20/2012 and 04/04/2020 TECHNIQUE: Bilateral craniocaudad, mediolateral oblique, and mediolateral views are submitted with to mosynthshailesh and ODETTE. Computer aided detection utilized. Breast composition: There are scattered areas of fibroglandular density. Scattered asymmetries within each breast. There are also additional bilateral calcifications. No obvious change since 04/04/2020. There are no new areas of distortion. Bilateral breast ultrasound, limited. Ultrasound directed to the areas of breast discoloration. Ultrasound is directed to the lateral aspect of each breast at the area of discoloration. There is no mass or skin thickening. No shadowing. No significant edema. IMPRESSION: US/US breast BI limited* [id number] BI-RADS: 2-Benign FOLLOW UP: 1 Year Follow-up
== END 2023-04-22 12:56 | disposition home or self-care (01) ==
LOC: RAD 12:55
PROVIDERS: PCP Nurse Practitioner Family; Visit Provider Nurse Practitioner Family
DX: N64.59 Other signs and symptoms in breast (principal); R92.323 Mammographic fibroglandular density, bilateral breasts; R92.1 Mammographic calcification found on diagnostic imaging of breast; N64.89 Other specified disorders of breast
CPT/HCPCS: 76642; 77062; G0279

== ENCOUNTER 2023-05-09 11:20 | Outpatient (CLI) | payer OTHER, SELFPAY | END 2023-05-09 11:21 | disposition home or self-care (01) | LOC: LAB 11:22 | PROVIDERS: PCP Nurse Practitioner Family; Visit Provider Internal Medicine | DX: E03.9 Hypothyroidism, unspecified (principal) | CPT/HCPCS: 36415; 84439; 84443 ==

== ENCOUNTER → 2023-05-13 07:24 | Outpatient (BNVA) | payer OTHER, SELFPAY | PROVIDERS: PCP Nurse Practitioner Family; Visit Provider Internal Medicine | DX: E66.9 Obesity, unspecified (principal); E03.9 Hypothyroidism, unspecified; Z68.45 Body mass index [BMI] 70 or greater, adult; Z79.890 Hormone replacement therapy | CPT/HCPCS: 99214 ==

== ENCOUNTER → 2023-05-16 10:47 | Outpatient (BNVA) | payer OTHER, SELFPAY | PROVIDERS: PCP Nurse Practitioner Family; Visit Provider Surgery | DX: R22.2 Localized swelling, mass and lump, trunk; R22.31 Localized swelling, mass and lump, right upper limb; R22.41 Localized swelling, mass and lump, right lower limb | CPT/HCPCS: 99204 ==

== ENCOUNTER 2023-06-10 16:02 | Outpatient (CLI) | payer OTHER, SELFPAY ==
[2023-06-10 20:58] LABS: Free T4 Free Thyroxine 1.72 ng/dL (0.82-1.77)
== END 2023-06-10 16:03 | disposition home or self-care (01) ==
LOC: LAB 16:04
PROVIDERS: PCP Nurse Practitioner Family; Visit Provider Internal Medicine
DX: E03.9 Hypothyroidism, unspecified (principal)
CPT/HCPCS: 36415; 84439

== ENCOUNTER 2023-06-20 09:57 | Day surgery (SDC) | payer OTHER, SELFPAY ==
[2023-06-20] VITALS (12 sets, daily range): BP systolic 114–155; BP diastolic 63–96; PULSE 92–98; RESP 15–20; TEMP 36.2–36.6; O2SAT 95–100; BMI 69.4
--- NOTE | 2023-06-20 10:13 | PM.HP ---
Providers/Chief Complaint Primary Care Provider: EDUARDO Thurston Chief Complaint: R22.9 History of Present Illness Brunilda Casey is a 48 year old female Review of Systems General: Reports: 10 or more systems reviewed and unremarkable except in HPI and below Medications/Allergies Home Medications Medication Instructions Recorded Confirmed Last Taken Type amlodipine 10 mg tablet 10 mg PO DAILY 07/30/19 06/19/23 06/19/23 History aspirin 81 mg tablet,delayed 81 mg PO DAILY 07/30/19 06/19/23 06/12/23 History release metoprolol succinate 25 mg 25 mg PO DAILY 07/30/19 06/19/23 06/19/23 History tablet,extended release 24 hr cyclobenzaprine 10 mg tablet 10 mg PO TID PRN muscle spasm #270 09/03/19 06/19/23 12/18/19 Rx tabs duloxetine 60 mg capsule,delayed 60 mg PO DAILY #90 caps 09/03/19 06/19/23 06/19/23 Rx release ibuprofen 800 mg tablet 800 mg PO PRN PRN FIBROMYALGIA 12/18/19 06/19/23 12/18/19 History metoclopramide HCl 10 mg tablet 10 mg PO TID PRN migraine headache 03/31/21 06/19/23 Unknown Rx (Reglan) #10 tabs carbidopa 25 mg-levodopa 100 mg 1.5 tab PO QID 10/18/21 06/19/23 06/19/23 History tablet rimegepant 75 mg disintegrating 75 mg PO DAILY PRN Migraine 02/28/22 06/19/23 Unknown History tablet (Nurtec ODT) Headache entacapone 200 mg tablet 200 mg PO QID 07/26/22 06/19/23 06/19/23 History liraglutide 0.6 mg/0.1 mL (18 mg/3 See Rx Instructions SUBCUT DAILY 07/26/22 06/19/23 06/10/23 Rx mL) subcutaneous pen injector 60 days #27 mL (Victoza 3-Pernell) tramadol 50 mg tablet 50 mg PO Q8H PRN pain #20 tabs 12/01/22 06/19/23 Unknown Rx montelukast 10 mg tablet 10 mg PO DAILY #30 tabs 03/22/23 06/19/23 06/19/23 Rx (Singulair) levothyroxine 88 mcg tablet 88 mcg PO DAILY 90 days #90 tabs 06/11/23 06/19/23 06/19/23 Rx cetirizine 10 mg tablet (Zyrtec) 10 mg PO EVERY OTHER DAY 06/19/23 06/19/23 06/19/23 History pramipexole 0.125 mg tablet 0.125 mg PO TID 06/19/23 06/19/23 06/19/23 History Allergies Allergy/AdvReac Type Severity Reaction Status Date / Time codeine Allergy nausea Verified 05/16/23 11:16 latex Allergy Unknown Verified 06/19/23 10:58 Sulfa (Sulfonamide Allergy rash Verified 05/16/23 11:16 Antibiotics) influenza A (H5N1) virus AdvReac Severe ADR-Muscle Verified 05/16/23 11:16 vaccine mo Pain PFSH Acute PFSH: Medical History COVID-19 long hauler Deep vein blood clot of right lower extremity Migraines Parkinsons disease Parkinson disease Hypertension Asthma Obesity Degenerative arthritis of right knee Surgical History H/O: hysterectomy Family History Other CAD (coronary artery disease) Cancer Diabetes Hypertension Social History Smoking and tobacco/nicotine status: never used tobacco/nicotine Second hand smoke exposure: No Alcohol intake: current Alcohol intake frequency: few times a month Substance/Drug Use: never Lives independently: Yes Household members: spouse Marital status: Current occupational status: employed Current occupation: Teacher Current occupational exposures/hazards: No Do you think of yourself as: Straight/Heterosexual Current gender identity: Female A&P Assessment and plan (1) Subcutaneous mass: Plan Excision of subcutaneous masses of the back, right shoulder, right hip and right lower extremity Attestations Medical Necessity Statement*: home Coding Level of Care Code Acute Code for Chg Fwd Diagnoses Subcutaneous mass R22.9
--- NOTE | 2023-06-20 11:05 | P.ANESASSM_ITS ---
Pre-Anesthetic Assessment Height/Weight: Height 1.68 m Weight 195.045 kg Temp Pulse Resp BP Pulse Ox O2 Del Method 97.8 F 97 18 152/96 95 Room Air 06/20/23 10:17 06/20/23 10:17 06/20/23 10:17 06/20/23 10:17 06/20/23 10:17 06/20/23 10:33 Operation Date: 06/20/23 11:30 Proposed Procedures p 59493 excision of subcutaneous mass of back R22.9(Not Applicable) [place] [id number] excision of subcutaneous mass of right shoulder(Right) - DO shelley Vigil Excision Mass Right Lower Extremity & Right Hip (2 locations)22029, 88544(Right) - [place] Ferguson DO Familial anesthetic complications: NOne Was Beta Mariam taken within 24 hours: Yes Was Clonidine taken within 24 hours: N/A Last intake: Intake Last Liquid Date 06/19/23 Last Liquid Time 22:00 Last Solid Date 06/19/23 Last Solid Time 20:00 Social No alcohol and No tobacco Exam alert, oriented x 3, clear to auscultation bilaterally and regular rate & rhythm Airway Mallampati: Class II Dentition: caps Pulmonary Asthma and Sleep Apnea restrictive lung disease d/t body habitus CV/HEM Hypertension DVt d/t injury Metabolic Morbid Obesity and Thyroid Disease Neuropsych parkinson's Anesthetic Plan ASA status: 3 Anesthesia: General Risk of > 500 ml blood loss (7ml/kg in children): No Medications/Allergies Home Medications Medication Instructions Recorded Confirmed Last Taken Type amlodipine 10 mg tablet 10 mg PO DAILY 07/30/19 06/19/23 06/19/23 History aspirin 81 mg tablet,delayed 81 mg PO DAILY 07/30/19 06/19/23 06/12/23 History release metoprolol succinate 25 mg 25 mg PO DAILY 07/30/19 06/19/23 06/19/23 History tablet,extended release 24 hr cyclobenzaprine 10 mg tablet 10 mg PO TID PRN muscle spasm #270 09/03/19 06/19/23 12/18/19 Rx tabs duloxetine 60 mg capsule,delayed 60 mg PO DAILY #90 caps 09/03/19 06/19/23 06/19/23 Rx release ibuprofen 800 mg tablet 800 mg PO PRN PRN FIBROMYALGIA 12/18/19 06/19/2320 History metoclopramide HCl 10 mg tablet 10 mg PO TID PRN migraine headache 03/31/21 06/19/23 Unknown Rx (Reglan) #10 tabs carbidopa 25 mg-levodopa 100 mg 1.5 tab PO QID 10/18/21 06/19/23 06/19/23 History tablet rimegepant 75 mg disintegrating 75 mg PO DAILY PRN Migraine 02/28/22 06/19/23 Unknown History tablet (Nurtec ODT) Headache entacapone 200 mg tablet 200 mg PO QID 07/26/22 06/19/23 06/19/23 History liraglutide 0.6 mg/0.1 mL (18 mg/3 See Rx Instructions SUBCUT DAILY 07/26/22 06/19/23 06/10/23 Rx mL) subcutaneous pen injector 60 days #27 mL (Victoza 3-Pernell) tramadol 50 mg tablet 50 mg PO Q8H PRN pain #20 tabs 12/01/22 06/19/23 Unknown Rx montelukast 10 mg tablet 10 mg PO DAILY #30 tabs 03/22/23 06/19/23 06/19/23 Rx (Singulair) levothyroxine 88 mcg tablet 88 mcg PO DAILY 90 days #90 tabs 06/11/23 06/19/23 06/19/23 Rx cetirizine 10 mg tablet (Zyrtec) 10 mg PO EVERY OTHER DAY 06/19/23 06/19/23 06/19/23 History pramipexole 0.125 mg tablet 0.125 mg PO TID 06/19/23 06/19/23 06/19/23 History Allergies Allergy/AdvReac Type Severity Reaction Status Date / Time codeine Allergy nausea Verified 05/16/23 11:16 latex Allergy Unknown Verified 06/19/23 10:58 Sulfa (Sulfonamide Allergy rash Verified 05/16/23 11:16 Antibiotics) influenza A (H5N1) virus AdvReac Severe ADR-Muscle Verified 05/16/23 11:16 vaccine mo Pain PFSH Anesthesia Medical History COVID-19 long hauler Deep vein blood clot of right lower extremity Migraines Parkinsons disease Parkinson disease Hypertension Asthma Obesity Degenerative arthritis of right knee Surgical History H/O: hysterectomy Family History Other CAD (coronary artery disease) Cancer Diabetes Hypertension Social History Smoking and tobacco/nicotine status: never used tobacco/nicotine Second hand smoke exposure: No Alcohol intake: current Alcohol intake frequency: few times a month Substance/Drug Use: never Lives independently: Yes Household members: spouse Marital status: Current occupational status: employed Current occupation: Teacher Current occupational exposures/hazards: No Do you think of yourself as: Straight/Heterosexual Current gender identity: Female Data Anesthesia Cardiac Studies: Echocardiogram Ultrasound 03/08/20
[2023-06-20 11:24] LABS: Glucose Point of Care 115 mg/dL (70-110)
[2023-06-20] MEDS: ceFAZolin 3,000 MG in sodium chloride 0.9% (plus) 100 ML 200 MG IV (11:24)
[2023-06-20] MEDS: sodium chloride 0.9% 1,000 ML 30 ML IV (12:06)
[2023-06-20] MEDS: lidocaine-epi 2% PF 1:200,000 20 mL SDV 40 ML XX (13:00)
--- NOTE | 2023-06-20 13:06 | PM.OP ---
Operative Report Date of procedure: June 20, 2023 Pre-op diagnosis: Subcutaneous masses of back, abdomen, right shoulder and right forearm Post-op diagnosis: same Procedure done: Excision of subcutaneous mass of back measuring 2 x 1 x 1 cm Excision of subcutaneous mass of back measuring 3.5 x 2 x 1 cm Excision of subcutaneous mass of back measuring 2.5 x 2.5 x 1.5 cm Excision of subcutaneous mass of back measuring 2.5 x 2 x 1 cm Excision of subcutaneous mass of back measuring 1.8 x 1.5 x 1.5 cm Excision of subcutaneous mass of back measuring 2.5 x 2 x 1.2 cm Excision of subcutaneous mass of abdomen measuring 7 x 3 x 2.5 cm Excision of subcutaneous mass of abdomen measuring 6 x 4 x 4 cm Excision of subcutaneous mass of abdomen measuring 4 x 2.5 x 1.8 cm Excision of subcutaneous mass of abdomen measuring 3.5 x 2.5 x 2 cm Excision of subcutaneous mass of right shoulder measuring 4 x 2.5 x 2 cm Excision of subcutaneous mass of right forearm measuring 1.5 x 1 x 1 cm Implants: None Specimens removed/disposition: See above Surgeon: [place] eFrguson DO Anesthesia: General and Local Estimated blood loss (mL): 20 Complications: None apparent Brief History: This very pleasant 48-year-old female presented to my office with multiple subcutaneous masses of her back abdomen and right shoulder and right forearm. Her bra dug into many of the subcutaneous masses and caused her pain. She desired excision. The risks and benefits were explained and documented. Procedure: Patient was wheeled operative room placed on the OR table in the supine position. General endotracheal ovation was achieved by department of anesthesia. The patient was then moved into the left lateral decubitus position. Multiple straps were placed on the patient to hold her into place. An axillary roll was placed and her right upper extremity was placed onto a Bowman stand for ergonomic placement. The back and abdomen were inspected prepped and draped in usual sterile fashion. A timeout was performed. All present were in agreement. Each area was individually anesthetized with 2% lidocaine with epinephrine and transverse incisions were made over the subcutaneous masses. Each mass was a lobulated fatty mass most consistent with a lipoma. Masses were expelled manually with a small sensation possible. Hemostats were used to break up alveolar tissue. Electrocautery was used for ligating alveolar tissue and hemostasis. The following masses and their locations were removed from the back and abdomen in a transverse incision with a 10 blade scalpel: -Excision of subcutaneous mass of back measuring 2 x 1 x 1 cm -Excision of subcutaneous mass of back measuring 3.5 x 2 x 1 cm -Excision of subcutaneous mass of back measuring 2.5 x 2.5 x 1.5 cm -Excision of subcutaneous mass of back measuring 2.5 x 2 x 1 cm -Excision of subcutaneous mass of back measuring 1.8 x 1.5 x 1.5 cm -Excision of subcutaneous mass of back measuring 2.5 x 2 x 1.2 cm -Excision of subcutaneous mass of abdomen measuring 7 x 3 x 2.5 cm -Excision of subcutaneous mass of abdomen measuring 6 x 4 x 4 cm -Excision of subcutaneous mass of abdomen measuring 4 x 2.5 x 1.8 cm -Excision of subcutaneous mass of abdomen measuring 3.5 x 2.5 x 2 cm Each incision was then closed with 3-0 nylon in a simple running fashion. Incisions were cleaned and dried and sterile bandages were placed. Attention was then brought to the right shoulder. The right shoulder was inspected prepped and draped in usual sterile fashion. A transverse incision was made with a 15 blade scalpel and a lobulated fatty mass was expelled manually. Hemostats were used to aid in breaking alveolar tissue. Electrocautery was used to ligate alveolar tissue and achieve hemostasis. -Excision of subcutaneous mass of right shoulder measuring 4 x 2.5 x 2 cm 3-0 nylon in a simple running fashion. Skin was washed and dried. Sterile bandage was applied. Attention was then brought to the right wrist. The right wrist was inspected prepped and draped in usual sterile fashion. 2% lidocaine with epinephrine was used to anesthetize the skin overlying the subcutaneous mass. A transverse incision was made with a 15 blade scalpel over the subcutaneous mass. A lobulated fatty mass, most consistent with a lipoma, was manually expelled. Hemostats and electrocautery were used to break alveolar tissue and achieve hemostasis. -Excised was a mass of right forearm measuring 1.5 x 1 x 1 cm. Skin was washed and dried. 3-0 Vicryl suture was used to close the dermis in an interrupted subcutaneous fashion. Dermabond was applied. Patient tolerated procedures well
--- NOTE | 2023-06-20 15:40 | SUR.PHASEII ---
SURGICAL INCISIONS INSPECTED. INTACT WITH NO BLEEDING. NEW DRESSINGS APPLIED.
== END 2023-06-20 15:25 | disposition home or self-care (01) ==
PROVIDERS: PCP Nurse Practitioner Family; Visit Provider Surgery
PROC: (CPT 11402; principal; 2023-06-20 11:30)
PROC: (CPT 11402; 2023-06-20 11:30)
PROC: (CPT 11402; 2023-06-20 11:30)
DX: D17.1 Benign lipomatous neoplasm of skin and subcutaneous tissue of trunk (principal); D17.21 Benign lipomatous neoplasm of skin and subcutaneous tissue of right arm; Z79.82 Long term (current) use of aspirin; Z86.16 Personal history of COVID-19; Z86.718 Personal history of other venous thrombosis and embolism; G20.A1 Parkinson's disease without dyskinesia, without mention of fluctuations; I10 Essential (primary) hypertension; E66.01 Morbid (severe) obesity due to excess calories; Z68.44 Body mass index [BMI] 60.0-69.9, adult; G47.30 Sleep apnea, unspecified
CPT/HCPCS: 11402; 11404; 11406 ×2; 36416; 82962; 88304; J0690; J1100; J2250; J2405; J2704; J3010; J7030

== ENCOUNTER → 2023-06-21 10:32 | Outpatient (BNVA) | payer OTHER, SELFPAY | PROVIDERS: PCP Nurse Practitioner Family; Visit Provider Internal Medicine Pulmonary Disease | DX: J45.51 Severe persistent asthma with (acute) exacerbation (principal); E66.9 Obesity, unspecified; D75.1 Secondary polycythemia; E04.1 Nontoxic single thyroid nodule; Z68.44 Body mass index [BMI] 60.0-69.9, adult | CPT/HCPCS: 99214 ==

== ENCOUNTER → 2023-07-02 14:33 | Outpatient (BNVA) | payer OTHER, SELFPAY | PROVIDERS: PCP Nurse Practitioner Family; Visit Provider Dermatology | DX: L30.9 Dermatitis, unspecified (principal); I79.8 Other disorders of arteries, arterioles and capillaries in diseases classified elsewhere; N62 Hypertrophy of breast; D22.5 Melanocytic nevi of trunk | CPT/HCPCS: 11104; 99214 ==

== ENCOUNTER → 2023-07-08 07:44 | Outpatient (BNVA) | payer OTHER, SELFPAY | PROVIDERS: PCP Nurse Practitioner Family; Visit Provider Surgery | DX: Z12.11 Encounter for screening for malignant neoplasm of colon (principal); Z98.890 Other specified postprocedural states | CPT/HCPCS: 99024; 99214 ==

== ENCOUNTER → 2023-07-15 10:56 | Outpatient (BNVA) | payer OTHER, SELFPAY | PROVIDERS: PCP Nurse Practitioner Family; Visit Provider Dermatology | DX: D21.3 Benign neoplasm of connective and other soft tissue of thorax (principal); L24.9 Irritant contact dermatitis, unspecified cause | CPT/HCPCS: 99214 ==

== ENCOUNTER 2023-07-17 15:32 | Outpatient (CLI) | payer OTHER, SELFPAY ==
[2023-07-17 17:05] LABS: Basophils % 0.5 %; Hematocrit 49.1 % (36-47); Lymphocytes # 0.7 10^3/uL (0.8-4.8); Lymphocytes % 9.6 %; Mean Corpuscular HGB Conc 32.6 g/dL (30-55); Mean Corpuscular Volume 89.1 fl (85-98); Mean Platelet Volume 10.8 fL (7.4-10.4); Monocytes # 0.2 10^3/uL (0.2-0.9); Monocytes % 2.5 %; Neutrophils # 6.33 10^3/uL (1.8-7.7); Nucleated Red Blood Cells % 0 %; Platelet Count 260 10^3/cmm (157-399); Red Blood Count 5.51 10^6/uL (3.85-5.65); White Blood Count 7.28 10^3/uL (3.29-11.43)
[2023-07-17 17:29] LABS: Alanine Aminotransferase 6 U/L (0-33); Albumin Level 4.2 g/dL (3.5-5.2); Alkaline Phosphatase 122 U/L (35-105); Anion Gap 18.2 (5-19); Aspartate Amino Transferase 16 U/L (0-32); Blood Urea Nitrogen 17 mg/dL (6-20); C Reactive Protein 9.6 mg/L (0.0-4.9); Calcium 9.3 mg/dL (8.5-10.5); Carbon Dioxide 24 mmol/L (22-29); Chloride 101 mmol/L (98-107); Globulin 3.4 g/dL (1.3-4.6); Glomerular Filtration Rate 75.9 mL/min (90-130); Glucose 130 mg/dL (65-115); Immunoglobulin IGA 224 mg/dL (70-400); Immunoglobulin IGG 938 mg/dL (700-1600); Immunoglobulin IGM 116 mg/dL (40-230); Lactate Dehydrogenase 245 U/L (135-214); Osmolality Calculated 291 mOsm/kg (285-295); Potassium 4.2 mmol/L (3.5-5.1); Sodium 139 mmol/L (136-145); Total Bilirubin 0.5 mg/dL (0.15-1.2); Total Protein 7.6 g/dL (6.6-8.7)
[2023-07-19 14:21] LABS: Anti-Double Strand DNA AB <1 IU/mL; Jo-1 Antibody <1.0 NEG AI (<1.0 NEG); SS-B/LA IGG <1.0 NEG AI (<1.0 NEG); Scleroderma Ab(Scl-70) Ab <1.0 NEG AI (<1.0 NEG); Ss-A/Ro Igg <1.0 NEG AI (<1.0 NEG)
[2023-07-21 06:26] LABS: CARDIOLIPIN AB (IGA) <2.0 APL-U/mL; CARDIOLIPIN AB (IGG) <2.0 GPL-U/mL; CARDIOLIPIN AB (IGM) <2.0 MPL-U/mL
== END 2023-07-17 15:33 | disposition home or self-care (01) ==
LOC: LAB 15:33
PROVIDERS: PCP Nurse Practitioner Family; Visit Provider Dermatology
DX: D21.3 Benign neoplasm of connective and other soft tissue of thorax (principal); L24.9 Irritant contact dermatitis, unspecified cause
CPT/HCPCS: 36415; 80048; 80076; 82595; 82784; 83615; 85025; 86140; 86147; 86225; 86235

== ENCOUNTER 2023-07-18 11:57 | Outpatient (CLI) | payer OTHER, SELFPAY ==
[2023-07-25 20:55] LABS: Cryoglobulins Qualitative None Detected (None Detected)
== END 2023-07-18 11:58 | disposition home or self-care (01) ==
LOC: LAB 12:05
PROVIDERS: PCP Nurse Practitioner Family; Visit Provider Dermatology
DX: D21.3 Benign neoplasm of connective and other soft tissue of thorax (principal)
CPT/HCPCS: 36415; 82595

== ENCOUNTER 2023-08-01 15:09 | Outpatient (CLI) | payer OTHER, SELFPAY ==
[2023-08-05 15:29] LABS: Thyroglobulin AB <1 IU/mL (< or = 1); Thyroid Peroxidase Antobodies <1 IU/mL (<9)
== END 2023-08-01 15:10 | disposition home or self-care (01) ==
LOC: LAB 15:10
PROVIDERS: PCP Nurse Practitioner Family; Visit Provider Internal Medicine
DX: E03.9 Hypothyroidism, unspecified (principal); E04.1 Nontoxic single thyroid nodule
CPT/HCPCS: 36415; 86376; 86800

== ENCOUNTER → 2023-08-08 11:57 | Outpatient (BNVA) | payer OTHER, SELFPAY | PROVIDERS: PCP Nurse Practitioner Family; Visit Provider Internal Medicine | DX: E03.9 Hypothyroidism, unspecified (principal); E66.9 Obesity, unspecified; Z79.890 Hormone replacement therapy; Z68.45 Body mass index [BMI] 70 or greater, adult | CPT/HCPCS: 99214 ==

== ENCOUNTER → 2024-01-29 10:54 | Outpatient (BNVA) | payer OTHER, SELFPAY | PROVIDERS: PCP Nurse Practitioner Family; Visit Provider Nurse Practitioner | DX: M25.521 Pain in right elbow (principal); M77.11 Lateral epicondylitis, right elbow | CPT/HCPCS: 73080 ==

== ENCOUNTER → 2024-04-16 13:18 | Outpatient (BNVA) | payer OTHER, SELFPAY | PROVIDERS: PCP Nurse Practitioner Family; Visit Provider Internal Medicine | DX: E03.9 Hypothyroidism, unspecified (principal) | CPT/HCPCS: 36415; 84439; 84443 ==

== ENCOUNTER 2024-09-09 20:00 | Outpatient (CLI) | payer OTHER, SELFPAY | END 2024-09-09 20:01 | disposition home or self-care (01) | LOC: SLEEP 09-10 03:25 | PROVIDERS: PCP Nurse Practitioner Family; Visit Provider Nurse Practitioner Family | DX: G47.33 Obstructive sleep apnea (adult) (pediatric) (principal) | CPT/HCPCS: 95811 ==

== ENCOUNTER 2024-10-23 11:14 | Outpatient (CLI) | payer OTHER, SELFPAY ==
[2024-10-23 12:25] LABS: Free T4 Free Thyroxine 1.50 ng/dL (0.82-1.77); Thyroid Stimulating Hormone 2.88 uIU/mL (0.27-4.20)
== END 2024-10-23 11:15 | disposition home or self-care (01) ==
PROVIDERS: PCP Nurse Practitioner Family; Visit Provider Internal Medicine
DX: E03.9 Hypothyroidism, unspecified (principal); E66.9 Obesity, unspecified; G20.A1 Parkinson's disease without dyskinesia, without mention of fluctuations
CPT/HCPCS: 36415; 84439; 84443

== ENCOUNTER 2024-11-11 11:43 | Emergency (ER) | payer OTHER, SELFPAY ==
--- OUTSIDE RECORDS SUMMARY | 2024-11-11 11:47 | XMS_ITS | Encounter Summary ---
Author Organization [facility] Address [address] [place] [address] Care Team Providers Care Integrity Manager Name Role Phone Unavailable Primary Care Provider Unavailabl e Encounter Details Date Type Department Care Team (Late st Contact Info) Description 05/31/1997 Outpatient Historical [facility] Darrel Queen MD [address] [place], [place] [id number] Migraine without aura, without mention of intractable migraine without mention of status migrainosus (Primary Dx) Social History Tobacco Use Types Packs/Day Years Used Date Smoking Tobacco: Never Assessed Comments Unknown Sex and Gender Information Value Date Recorded Sex Assigned at Not on file 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
--- OUTSIDE RECORDS SUMMARY | 2024-11-11 11:47 | XMS_ITS | Encounter Summary ---
Author Organization [facility] Address [address] [place] [address] Care Team Providers Care Adult Basic Education Manager Name Role Phone Unavailable Primary Care Provider Unavailabl e Encounter Details Date Type Department Care Team (Late st Contact Info) Description 08/11/1997 Outpatient Historical [facility] Darrel Queen MD [address] [place], [place] [address] Migraine without aura, without mention of intractable migraine without mention of status migrainosus (Primary Dx) Social History Tobacco Use Types Packs/Day Years Used Date Smoking Tobacco: Never Assessed Comments Unknown Sex and Gender Information Value Date Recorded Sex Assigned at Not on file 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
--- OUTSIDE RECORDS SUMMARY | 2024-11-11 11:47 | XMS_ITS | Clinical Summary ---
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
--- OUTSIDE RECORDS SUMMARY | 2024-11-11 11:47 | XMS_ITS | Encounter Summary ---
Author Organization [facility] Address [address] [place] [address] Care Team Providers Care Dry Plasterer Name Role Phone Unavailable Primary Care Provider Unavailabl e Encounter Details Date Type Department Care Team (Late st Contact Info) Description 05/13/1997 Outpatient Historical [facility] Darrel Queen MD [address], [place] [phone] Migraine with aura, without mention of intractable migraine without mention of status migrainosus (Primary Dx) Social History Tobacco Use Types Packs/Day Years Used Date Smoking Tobacco: Never Assessed Comments Unknown Sex and Gender Information Value Date Recorded Sex Assigned at Not on file 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
--- OUTSIDE RECORDS SUMMARY | 2024-11-11 11:47 | XMS_ITS | Clinical Summary ---
Author Organization [facility] [place] Address [address] [facility] [address] [place] [address] Care Team Providers Care Farm Service Adviser Name Role Phone Unavailable Primary Care Provider Unavailabl e Allergies No known active allergies Medications Nucala 100 mg/mL Auto-Injector Inject 1 mL (100 mg) by subcutaneous injection one time only for 1 dose. 1 mL 4 03/24/19 26 Active mepolizumab (Nucala) 100 mg/mL Auto-Injector Inject 1 mL (100 mg) by subcutaneous injection one time only for 1 dose. 1 mL 5 Active montelukast (SINGULAIR) 10 mg tablet TAKE 1 TABLET BY MOUTH ONCE DAILY AT BEDTIME 90 Tablet 5 Active Active Problems No known active problems Encounters Date Type Department Care Team Description 10/20/2024 External Device Data [facility] ABSTRACTION Provider, Abstract 10/12/2024 10:45 AM CDT Video Visit [facility] [address] [place] [address] Jorgito Devries MD Severe persistent asthma dependent on systemic steroids ([facility]) (Primary Dx); ANTONIO (obstructive sleep apnea); Morbid obesity with BMI of 70 and over, adult (CMS/HCC) 10/07/2024 Refill [facility] [place] [address] [place] [address] Jorgito Devries MD 10/02/2024 Refill [facility] [place] [address] [place] [address] Jorgito Devries MD 10/01/2024 Telephone [facility] [place] [address] [facility] [address] [place] [address] DatarJorgito MD nucala inj 09/30/2024 External Device Data [facility] ABSTRACTION Provider, Abstract 09/29/2024 External Device Data [facility] ABSTRACTION Provider, Abstract 09/01/2024 External Device Data [facility] ABSTRACTION Provider, Abstract from Last 3 Months Social History Tobacco Use Types Packs/Day Years Used Date Smoking Tobacco: Never Smokeless Tobacco: Never Tobacco Cessation:Counseling Given: No Alcohol Use Standard Drinks/Week Comments Not Currently 0 (1 standard drink = 0.6 oz pur e alcohol) Comments Unknown Sex and Gender Information Value Date Recorded Sex Assigned at Not on file Legal Sex Female 6:28 AM GROUP CIO Gender Identity Not on file Sexual Orientation Not on file Last Filed Vital Signs Vital Sign Reading Time Taken Comments Blood Pressure 126/86 2024 10:39 AM GROUP CIO Pulse 79 2024 10:39 AM GROUP CIO Temperature - - Respiratory Rate - - Oxygen Saturation 93% 2024 10:39 AM GROUP CIO Inhaled Oxygen Concentration - - Weight 204.1 kg (450 lb) 2024 10:39 AM GROUP CIO Height 167.6 cm (5' 6 ) 2024 10:39 AM GROUP CIO Body Mass Index 72.63 2024 10:39 AM GROUP CIO Plan of Treatment Health Maintenance Due Date Last Done Comments Pre-Diabetes and Diabetes Screening 1973 DTAP/TDAP/TD VACCINES (1 - Tdap) 1992 HEPATITIS B VACCINES (1 of 3 - 19+ 3-dose series) 02/16 BREAST CANCER SCREENING 2013 COLORECTAL SCREENING 2018 Colorectal Cancer Screening 2018 FIT-DNA Q 3 years 2018 FIT/FOBT Q 1 year 2018 Flex Sig/CT Colonography Q 5 years 2018 ZOSTER VACCINE (1 of 2) 2023 COVID-19 Vaccine (2 - season) 2023 INFLUENZA VACCINE (#1) 2024 01/09/2017 Insurance [employer]
[2024-11-11 12:23] VITALS: BP 158/103; PULSE 108; RESP 16; TEMP 36.8; O2SAT 96
--- NOTE | 2024-11-11 12:57 | W.ED.ABDPA2 ---
HPI - Abdominal Pain General: Chief Complaint: Abdominal Pain Stated Complaint: abd pain / N/V Time Seen by Provider: 11/11/24 12:53 History of Present Illness: 49-year-old female presents emergency room complaining abdominal pain with nausea vomiting for the last 3 to 4 days poor intake. She is feels she has chills at times. Has been nauseous and has had some vomiting denies any hematemesis or coffee-ground emesis. No chest pain. Most of the abdominal pain is periumbilical no flank pain. Associated Symptoms: Reports nausea and vomiting; Denies chills, coffee ground emesis, dysuria, fever(s), hematochezia, hematemesis and melena Related Data Home Medications ?Medication ?Instructions ?Recorded ?Confirmed amlodipine 10 mg tablet 10 mg PO DAILY 07/30/19 11/11/24 aspirin 81 mg tablet,delayed 81 mg PO DAILY 07/30/19 11/11/24 release metoprolol succinate 25 mg 25 mg PO DAILY 07/30/19 11/11/24 tablet,extended release 24 hr carbidopa 25 mg-levodopa 100 mg 1.5 tab PO QID 10/18/21 11/11/24 tablet pramipexole 0.125 mg tablet 0.125 mg PO TID 06/19/23 11/11/24 cyclobenzaprine 10 mg tablet 10 mg PO BID PRN Muscle Spasm 11/11/24 11/11/24 furosemide 40 mg tablet 40 mg PO DAILY PRN swelling 11/11/24 11/11/24 liraglutide 0.6 mg/0.1 mL (18 mg/3 1.2 mg SUBCUT DAILY 11/11/24 11/11/24 mL) subcutaneous pen injector (Victoza 2-Pernell) mepolizumab 100 mg/mL subcutaneous 100 mg SUBCUT .Q30D 11/11/24 11/11/24 auto-injector (Nucala) oxycodone 5 mg tablet 5 mg PO .Q4-6H PRN chronic pain 11/11/24 11/11/24 spironolactone 25 mg tablet 25 mg PO DAILY PRN unknown 11/11/24 11/11/24 Previous Rx's ?Medication ?Instructions ?Recorded duloxetine 60 mg capsule,delayed 60 mg PO DAILY #90 caps 09/03/19 release tramadol 50 mg tablet 100 mg (2 x 50 mg) PO Q6H PRN pain 06/20/23 #40 tabs montelukast 10 mg tablet 10 mg PO DAILY #30 tabs 07/01/23 (Singulair) cephalexin 500 mg capsule 500 mg PO TID 7 days #21 caps 11/11/24 Allergies Allergy/AdvReac Type Severity Reaction Status Date / Time codeine Allergy nausea Verified 08/25/24 15:47 latex Allergy Unknown Verified 08/25/24 15:47 Sulfa (Sulfonamide Allergy rash Verified 08/25/24 15:47 Antibiotics) influenza A (H5N1) virus AdvReac Severe ADR-Muscle Verified 08/25/24 15:47 vaccine mo Pain Review of Systems Const: Denies: fever(s) or chills Card: Denies: chest pain Resp: Denies: dyspnea GI: Reports: abdominal pain, nausea and vomiting; Denies: hematemesis, coffee ground emesis, hematochezia or melena : Denies: dysuria, urinary frequency or urinary urgency Musc: Denies: neck pain or back pain Skin/Breast: Denies: rash PFSH ED PFSH: Medical History COVID-19 long hauler Deep vein blood clot of right lower extremity Migraines Parkinsons disease Parkinson disease Hypertension Asthma Obesity Degenerative arthritis of right knee Surgical History Hx of excision of mass Subcutaneous masses of back, abdomen, right shoulder and right forearm- 06/20/23 Dr Ferguson H/O: hysterectomy Family History Other CAD (coronary artery disease) Cancer Diabetes Hypertension Social History Smoking and tobacco/nicotine status: unknown if used tobacco/nicotine Second hand smoke exposure: No Alcohol intake: current Alcohol intake frequency: few times a month Substance/Drug Use: never Lives independently: Yes Household members: spouse Marital status: Current occupational status: employed Current occupation: Teacher Current occupational exposures/hazards: No Do you think of yourself as: Straight/Heterosexual Current gender identity: Female Physical Exam Const: COMMON NORMALS: no acute distress GENERAL APPEARANCE: cooperative and comfortable ORIENTATION/CONSCIOUSNESS: Yes awake, Yes oriented to person, Yes oriented to place and Yes oriented to time HENMT: COMMON NORMALS: normocephalic, atraumatic and hearing grossly normal bilaterally HEAD & SCALP: normocephalic and atraumatic Resp: COMMON NORMALS: normal respiratory effort, No retractions, No use of accessory muscles and clear to auscultation bilaterally AUSCULTATION: clear to auscultation bilaterally Cardio: COMMON NORMALS: regular rate, regular rhythm and No murmurs present (Cardio) RATE: regular rate RHYTHM: regular rhythm GI: COMMON NORMALS: Soft to palpation and No hepatosplenomegaly present AUSCULTATION: Yes normoactive bowel sounds PALPATION: Yes Soft to palpation, No Tenderness to palpation present (GI), No Guarding due to palpation present (GI) and Yes No hepatosplenomegaly present Extremity: COMMON NORMALS: normal to inspection, capillary refill normal, no clubbing, cyanosis or edema, no calf tenderness and no pedal edema Neuro: SENSORIUM/ORIENTATION: Yes oriented to person, Yes oriented to place and Yes oriented to time Skin: COMMON NORMALS: no rashes or lesions noted GENERAL SKIN EXAM: no rashes or lesions noted Course Vital Signs: Vital signs: Vital Signs Temperature 98.3 F 11/11/24 12:23 Pulse Rate 97 11/11/24 15:07 Respiratory Rate 18 11/11/24 14:45 Blood Pressure 131/88 11/11/24 15:07 Pulse Oximetry 97 11/11/24 15:07 Oxygen Delivery Me thod Room Air 11/11/24 14:45 MDM - Abdominal Pain Medical Decision Making CT is unremarkable. No leukocytosis UA shows cystitis. Will treat for cystitis given a gram Rocephin here discharged home on cephalexin 500 3 times daily for 7 days Medical Records I reviewed the patient's medical records. Lab Data I reviewed the patient's lab results. 11/11/24 13:16 11/11/24 13:16 Labs/Radiology: Radiology Impressions Abdomen/Pelvis CT 11/11/24 13:03 IMPRESSION: Images in the abdomen and pelvis degraded due to beam hardening artifact from body habitus 1. Incidental fat-containing umbilical hernia. No induration. 2. Normal sigmoid colon. 3. No evidence of small or large bowel obstruction. 4. No hydronephrosis in either kidney. Laboratory Results WBC 5.83 10^3/uL (3.29-11.43) 11/11/24 13:16 RBC 5.68 10^6/uL (3.85-5.65) H 11/11/24 13:16 Hgb 15.60 g/dL (11.27-16.99) 11/11/24 13:16 Hct 50.1 % (36-47) H 11/11/24 13:16 MCV 88.2 fl (85-98) 11/11/24 13:16 MCH 27.5 pg (27-33) 11/11/24 13:16 MCHC 31.1 g/dL (30-55) 11/11/24 13:16 RDW 14.6 % (12.1-15.1) 11/11/24 13:16 Plt Count 229 10^3/cmm (157-399) 11/11/24 13:16 MPV 10.6 fL (7.4-10.4) H 11/11/24 13:16 Neut % (Auto) 63.4 % 11/11/24 13:16 Lymph % (Auto) 21.8 % 11/11/24 13:16 Adams % (Auto) 12.3 % 11/11/24 13:16 Eos % (Auto) 0.9 % 11/11/24 13:16 Baso % (Auto) 1.4 % 11/11/24 13:16 Neut # (Auto) 3.70 10^3/uL (1.8-7.7) 11/11/24 13:16 Lymph # (Auto) 1.3 10^3/uL (0.8-4.8) 11/11/24 13:16 Adams # (Auto) 0.7 10^3/uL (0.2-0.9) 11/11/24 13:16 Eos # (Auto) 0.1 10^3/uL (0.0-0.8) 11/11/24 13:16 Baso # (Auto) 0.1 10^3/uL (0.0-0.1) 11/11/24 13:16 Nucleated RBC % (auto) 0 % 11/11/24 13:16 Nucleated RBCs # 0.0 /100WBC 11/11/24 13:16 Sodium 139 mmol/L (136-145) 11/11/24 13:16 Potassium 3.6 mmol/L (3.5-5.1) 11/11/24 13:16 Chloride 101 mmol/L (98-107) 11/11/24 13:16 Carbon Dioxide 25 mmol/L (22-29) 11/11/24 13:16 Anion Gap 16.6 (5-19) 11/11/24 13:16 BUN 10 mg/dL (6-20) 11/11/24 13:16 Creatinine 0.9 mg/dL (0.5-0.9) 11/11/24 13:16 GFR Calculation 66.0 mL/min (90-130) L 11/11/24 13:16 Glucose 105 mg/dL (65-115) 11/11/24 13:16 Calculated Osmolality 287 mOsm/kg (285-295) 11/11/24 13:16 Lactic Acid 2.3 mmol/L (0.5-2.2) H 11/11/24 13:16 Calcium 9.4 mg/dL (8.5-10.5) 11/11/24 13:16 Total Bilirubin 0.6 mg/dL (0.15-1.2) 11/11/24 13:16 AST 21 U/L (0-32) 11/11/24 13:16 ALT 33 U/L (0-33) 11/11/24 13:16 Alkaline Phosphatase 93 U/L (35-105) 11/11/24 13:16 C-Reactive Protein 64.8 mg/L (0.0-4.9) H 11/11/24 13:16 Total Protein 7.5 g/dL (6.6-8.7) 11/11/24 13:16 Albumin 4.0 g/dL (3.5-5.2) 11/11/24 13:16 Globulin 3.5 g/dL (1.3-4.6) 11/11/24 13:16 Lipase 19 U/L (13-60) 11/11/24 13:16 Urine Color Yellow (Yellow) 11/11/24 13:17 Urine Appearance Cloudy (CLEAR) A 11/11/24 13:17 Urine pH 5.5 (5-7) 11/11/24 13:17 Ur Specific [place] 1.022 (1.005-1.030) 11/11/24 13:17 Urine Protein 1+ (Negative) A 11/11/24 13:17 Urine Glucose (UA) Negative (Normal) 11/11/24 13:17 Urine Ketones Trace (Negative) 11/11/24 13:17 Urine Blood Negative (Negative) 11/11/24 13:17 Urine Nitrate Negative (Negative) 11/11/24 13:17 Urine Bilirubin Negative (Negative) 11/11/24 13:17 Urine Urobilinogen 1.0 mg/dL (Negative) 11/11/24 13:17 Ur Leukocyte Esterase Negative (Negative) 11/11/24 13:17 Urine RBC 0-2 /hpf (0-2) 11/11/24 13:17 Urine WBC 11-20 /hpf (0-5) H 11/11/24 13:17 Ur Squamous Epith Cells 6-10 /hpf (0-5) 11/11/24 13:17 Amorphous Sediment Not Reportable 11/11/24 13:17 Urine Bacteria 3+ /hpf (NONE) H 11/11/24 13:17 Hyaline Casts 2.05 /lpf 11/11/24 13:17 Urine Mucus Trace /hpf 11/11/24 13:17 All radiology interpretation(s) finalized by discharge Discharge Plan Discharge Patient Disposition: Home Clinical Impression: Cystitis Condition: Stable Prescriptions: New cephalexin 500 mg capsule 500 mg PO TID 7 Days Qty: 21 0RF No Action duloxetine 60 mg capsule,delayed release(DR/EC) 60 mg PO DAILY Qty: 90 3RF aspirin 81 mg tablet,delayed release (DR/EC) 81 mg PO DAILY amlodipine 10 mg tablet 10 mg PO DAILY metoprolol succinate 25 mg tablet extended release 24 hr 25 mg PO DAILY carbidopa-levodopa 25-100 mg tablet 1.5 tab PO QID montelukast [Singulair] 10 mg tablet 10 mg PO DAILY Qty: 30 6RF pramipexole 0.125 mg Tablet 0.125 mg PO TID tramadol 50 mg tablet 100 mg PO Q6H PRN (Reason: pain) Qty: 40 0RF cyclobenzaprine 10 mg tablet 10 mg PO BID PRN (Reason: Muscle Spasm) furosemide 40 mg tablet 40 mg PO DAILY PRN (Reason: swelling) spironolactone 25 mg tablet 25 mg PO DAILY PRN (Reason: unknown) oxycodone 5 mg tablet 5 mg PO .Q4-6H PRN (Reason: chronic pain) liraglutide [Victoza 2-Pernell] 0.6 mg/0.1 mL (18 mg/3 mL) pen injector 1.2 mg SUBCUT DAILY Nucala 100 mg/mL auto-injector 100 mg SUBCUT .Q30D Discharge Orders: Discharge ED (Routine); Ordered 11/11/24 Ordered By: Darrel Champion Referrals: Christina Rebolledo FNP [Primary Care Provider, Unknown] Discharge Diet: Usual diet Discharge Activity: Increase activity as tolerated Patient Instructions: Urinary Tract Infection in Women (ED), Opioid Safety, Pain Management, Patient Portal & Kathrine Instructions Activity Restrictions/Additional Instructions: Thank you for choosing [facility] for your healthcare needs today. It is very important that you follow up as instructed or that you return to the Emergency Department should you have concerns or if your condition changes or worsens in any way. Emergency department visits are focused on emergent conditions, in some cases you may require further evaluation on an outpatient basis. You were seen in the emergency room complaints of abdominal pain your laboratory tests did not show significant abnormality other than a mild bladder infection. You are given a dose of IV antibiotics here and discharged home with oral antibiotics to begin tomorrow 1 pill 3 times a day for 7 days (Please note that included in your discharge packet is information concerning opioid safety and pain management. This information is given to all patients were discharged from the ER regardless of their discharge diagnosis or the medicines they usually take or are prescribed.) Print Language: Macedonian Coding Level of Care Code ED Digital Printer Operator for Maurisio Zimmer
[2024-11-11 13:01] VITALS: BP 156/103
--- NOTE | 2024-11-11 13:03 | CT_ITS ---
WS: [id number] CT ABDOMEN PELVIS TECHNIQUE: Noncontrast CT of the abdomen and pelvis with coronal and sagittal reformatted images. CLINICAL INFORMATION: Abdominal pain COMPARISON: CT 2009 DLP: 2432.[address] scans at [facility] use at least one of these dose optimization techniques: automated exposure control; mA and/or kV adjustment per patient size (includes targeted exams where dose is matched to clinical indication); or iterative reconstruction. FINDINGS: Thoracolumbar scoliosis. Normal noncontrast liver and spleen. Mild hepatomegaly. Noncontrast pancreas is normal. Small splenule. Small esophageal hiatal hernia. Normal adrenal glands. No hydronephrosis in either kidney. Distal ureters not well evaluated due to beam hardening artifact in the pelvis from body habitus incidental fat containing umbilical hernia. Pelvic phleboliths. Normal sigmoid colon. No evidence of small or large bowel obstruction. Prior postoperative changes thoracic spine. Appendix not well visualized but no evidence of acute appendicitis. CT/CT abdomen pelvis wo con [id number] IMPRESSION: Images in the abdomen and pelvis degraded due to beam hardening art ifact from body habitus 1. Incidental fat-containing umbilical hernia. No induration. 2. Normal sigmoid colon. 3. No evidence of small or large bowel obstruction. 4. No hydronephrosis in either kidney.
[2024-11-11 13:27] LABS: Glucose Urine UA Negative (Normal); Nitrate Urine Negative (Negative); Specific Gravity, Urine 1.022 (1.005-1.030)
[2024-11-11 13:34] LABS: Hematocrit 50.1 % (36-47); Hemoglobin 15.60 g/dL (11.27-16.99); Mean Corpuscular HGB Conc 31.1 g/dL (30-55); Mean Corpuscular Hemoglobin 27.5 pg (27-33); Mean Corpuscular Volume 88.2 fl (85-98); Nucleated Red Blood Cells % 0 %; Platelet Count 229 10^3/cmm (157-399); Red Blood Count 5.68 10^6/uL (3.85-5.65); White Blood Count 5.83 10^3/uL (3.29-11.43)
[2024-11-11 13:48] LABS: Alanine Aminotransferase 33 U/L (0-33); Albumin Level 4.0 g/dL (3.5-5.2); Alkaline Phosphatase 93 U/L (35-105); Anion Gap 16.6 (5-19); Aspartate Amino Transferase 21 U/L (0-32); Blood Urea Nitrogen 10 mg/dL (6-20); Calcium 9.4 mg/dL (8.5-10.5); Carbon Dioxide 25 mmol/L (22-29); Chloride 101 mmol/L (98-107); Creatinine Clr Calc Pharmacy 140.8794; Globulin 3.5 g/dL (1.3-4.6); Glucose 105 mg/dL (65-115); Lipase 19 U/L (13-60); Osmolality Calculated 287 mOsm/kg (285-295); Potassium 3.6 mmol/L (3.5-5.1); Sodium 139 mmol/L (136-145); Total Protein 7.5 g/dL (6.6-8.7)
--- NOTE | 2024-11-11 13:48 | PC.PHAR ---
Pt states she still takes Carbidopa-Levodopa 25-100mg 1.5 tablets qid. Pharmacy states pt only filled twice 12/12/24 and 01/11/25. Pt also states takes Pramipexole 0.125mg tid. Pharmacy states last filled 06/10/24 90ds
[2024-11-11 14:02] LABS: Lactic Sepsis W/Reflex 2.3 mmol/L (0.5-2.2)
[2024-11-11 14:24] LABS: UA Slide Review UA Slide Review Perf
[2024-11-11 14:45] VITALS: BP 124/78; PULSE 96; RESP 18; O2SAT 96
[2024-11-11] MEDS: cefTRIAXone 1,000 MG in water for injection-sterile 2.1 ML 2.1 MG IM (15:06)
[2024-11-11 15:07] VITALS: BP 131/88; PULSE 97; O2SAT 97
[2024-11-11 15:17] LABS: Reflex Lactate Order REFLEX LACTIC ORDERD
== END 2024-11-11 15:08 | disposition home or self-care (01) ==
PROVIDERS: Emergency Medicine; Emergency Provider Family Medicine; PCP Nurse Practitioner Family
DX: N30.90 Cystitis, unspecified without hematuria (principal); Z79.82 Long term (current) use of aspirin; I10 Essential (primary) hypertension
CPT/HCPCS: 74176; 80053; 81001; 83605; 83690; 85025; 86140; 96360; 96361; 96372; 99284; J0696; J7030

== ENCOUNTER 2024-12-02 06:51 | Emergency (ER) | payer OTHER, SELFPAY ==
[2024-12-02] VITALS (8 sets, daily range): BP systolic 107–171; BP diastolic 69–107; PULSE 70–100; RESP 16–18; TEMP 36.7; O2SAT 94–97; BMI 74.2
--- OUTSIDE RECORDS SUMMARY | 2024-12-02 06:58 | XMS_ITS | Encounter Summary ---
Author Organization [facility] Address [address] [place] [address] Care Team Providers Care Equalizing Saw Operator Name Role Phone Unavailable Primary Care Provider Unavailabl e Encounter Details Date Type Department Care Team (Late st Contact Info) Description 08/11/1997 Outpatient Historical [facility] Darrel Queen MD [address], [place] [address] Migraine without aura, without mention of intractable migraine without mention of status migrainosus (Primary Dx) Social History Tobacco Use Types Packs/Day Years Used Date Smoking Tobacco: Never Assessed Comments Unknown Sex and Gender Information Value Date Recorded Sex Assigned at Not on file 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
--- OUTSIDE RECORDS SUMMARY | 2024-12-02 06:58 | XMS_ITS | Encounter Summary ---
Author Organization [facility] Address [address] [place] [address] Care Team Providers Care Theater Projectionist Name Role Phone Unavailable Primary Care Provider Unavailabl e Encounter Details Date Type Department Care Team (Late st Contact Info) Description 05/31/1997 Outpatient Historical [facility] Darrel Queen MD [address], [place] [address] Migraine without aura, without mention of intractable migraine without mention of status migrainosus (Primary Dx) Social History Tobacco Use Types Packs/Day Years Used Date Smoking Tobacco: Never Assessed Comments Unknown Sex and Gender Information Value Date Recorded Sex Assigned at Not on file 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
--- OUTSIDE RECORDS SUMMARY | 2024-12-02 06:58 | XMS_ITS | Encounter Summary ---
Author Organization [facility] Address [address] [place] [address] Care Team Providers Care Meter Reader Inspector Name Role Phone Unavailable Primary Care Provider Unavailabl e Encounter Details Date Type Department Care Team (Late st Contact Info) Description 12/02/2024 External Device Data [facility] ABSTRACTION Provider, Abstract NO ADDRESS ON FILE Social History Tobacco Use Types Packs/Day Years Used Date Smoking Tobacco: Never Smokeless Tobacco: Never Alcohol Use Standard Drinks/Week Comments Not Currently 0 (1 standard drink = 0.6 oz pur e alcohol) Comments Unknown Sex and Gender Information Value Date Recorded Sex Assigned at Not on file 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
--- OUTSIDE RECORDS SUMMARY | 2024-12-02 06:58 | XMS_ITS | Clinical Summary ---
Author Organization [facility] [place] Address [address] [facility] [address] [place] [address] Care Team Providers Care Agribusiness Internship Name Role Phone Unavailable Primary Care Provider [...] Encounters Date Type Department Care Team Description 12/02/2024 External Device Data [facility] ABSTRACTION Provider, Abstract 12/01/2024 External Device Data [facility] ABSTRACTION Provider, Abstract 10/20/2024 External Device Data [facility] ABSTRACTION Provider, Abstract 10/12/2024 10:45 AM CDT Video Visit [facility] [place] [address] [place] [address] Jorgito Devries MD Severe persistent asthma dependent on systemic steroids (CMS/HCC) (Primary Dx); ANTONIO (obstructive sleep apnea); Morbid obesity with BMI of 70 and over, adult (CMS/HCC) 10/07/2024 Refill [facility] [address] [place] [address] Jorgito Devries MD 10/02/2024 Refill [facility] [place] [address] [place] [phone] DatarJorgito MD 10/01/2024 Telephone [facility] [place] [address] [place] [phone] DatarJorgito MD nucala inj 09/30/2024 External Device [...] on file Legal Sex Female 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 PRINTER MACHINE Gender Identity Not on file Sexual Orientation Not on file Last Filed Vital Signs Vital Sign Reading Time Taken Comments Blood Pressure 126/86 2024 10:39 AM PRINTER MACHINE Pulse 79 2024 10:39 AM PRINTER MACHINE Temperature - - Respiratory Rate - - Oxygen Saturation 93% 2024 10:39 AM PRINTER MACHINE Inhaled Oxygen Concentration - - Weight 204.1 kg (450 lb) 2024 10:39 AM PRINTER MACHINE Height 167.6 cm (5' 6 ) 2024 10:39 AM PRINTER MACHINE Body Mass Index 72.63 2024 10:39 AM PRINTER MACHINE Plan of Treatment Health Maintenance Due Date [...] of 2) 2023 INFLUENZA VACCINE (#1) 2024 01/09/2017 COVID-19 Vaccine ( season) 2024 Insurance [employer] [place] [id number]
--- OUTSIDE RECORDS SUMMARY | 2024-12-02 06:58 | XMS_ITS | Clinical Summary ---
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
--- OUTSIDE RECORDS SUMMARY | 2024-12-02 06:58 | XMS_ITS | Encounter Summary ---
Author Organization [facility] Address [address] [place] [address] Care Team Providers Care Controller [place] Name Role Phone Unavailable Primary Care Provider Unavailabl e Encounter Details Date Type Department Care Team (Late st Contact Info) Description 05/13/1997 Outpatient Historical HIS 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
--- OUTSIDE RECORDS SUMMARY | 2024-12-02 06:58 | XMS_ITS | Encounter Summary ---
Author Organization [facility] Address [address] [place] [address] Care Team Providers Care Developmental Behavioral Physician Name Role Phone Unavailable Primary Care Provider Unavailabl e Encounter Details Date Type Department Care Team (Late st Contact Info) Description 12/01/2024 External Device Data [facility] ABSTRACTION Provider, [...] on file Legal Sex Female 6:28 AM GLOST PLACER Gender Identity Not on file Sexual Orientation Not on file documented as of this encounter Plan of Treatment Not on file documented as of this encounter Visit Diagnoses Not on filedocumented in this encounter
--- NOTE | 2024-12-02 07:10 | W.ED.ABDPA2 ---
HPI - Abdominal Pain General: Chief Complaint: Abdominal Pain Stated Complaint: R side pain wrapping around back Time Seen by Provider: 12/02/24 06:55 History of Present Illness: 49-year-old female presents emergency room with right flank pain. She has not had any fever sweats chills denies any dysuria urgency or frequency she was seen recently given medications for a UTI. She has not had any skin rash. Her pain is primarily on her right side is worse when she moves or sits up twists or bends over. She denies any chest pain or associated shortness of breath Associated Symptoms: Denies chills, dysuria and fever(s) Related Data Home Medications ?Medication ?Instructions ?Recorded ?Confirmed amlodipine 10 mg tablet 10 mg PO DAILY 07/30/19 12/02/24 aspirin 81 mg tablet,delayed 81 mg PO DAILY 07/30/19 12/02/24 release metoprolol succinate 25 mg 25 mg PO DAILY 07/30/19 12/02/24 tablet,extended release 24 hr carbidopa 25 mg-levodopa 100 mg 1.5 tab PO QID 10/18/21 12/02/24 tablet pramipexole 0.125 mg tablet 0.125 mg PO TID 06/19/23 12/02/24 cyclobenzaprine 10 mg tablet 10 mg PO BID PRN Muscle Spasm 11/11/24 12/02/24 furosemide 40 mg tablet 40 mg PO DAILY PRN swelling 11/11/24 12/02/24 liraglutide 0.6 mg/0.1 mL (18 mg/3 1.2 mg SUBCUT DAILY 11/11/24 12/02/24 mL) subcutaneous pen injector (Victoza 2-Pernell) mepolizumab 100 mg/mL subcutaneous 100 mg SUBCUT .Q30D 11/11/24 12/02/24 auto-injector (Nucala) oxycodone 5 mg tablet 5 mg PO .Q4-6H PRN chronic pain 11/11/24 12/02/24 spironolactone 25 mg tablet 25 mg PO DAILY PRN unknown 11/11/24 12/02/24 trazodone 50 mg tablet 50 mg PO BEDTIME 12/02/24 12/02/24 Previous Rx's ?Medication ?Instructions ?Recorded duloxetine 60 mg capsule,delayed 60 mg PO DAILY #90 caps 09/03/19 release tramadol 50 mg tablet 100 mg (2 x 50 mg) PO Q6H PRN pain 06/20/23 #40 tabs montelukast 10 mg tablet 10 mg PO DAILY #30 tabs 07/01/23 (Singulair) diclofenac sodium 75 mg 75 mg PO Q12H PRN pain #20 tabs 12/02/24 tablet,delayed release methylprednisolone 4 mg tablets in See Rx Instructions PO .COMPLEX 12/02/24 a dose pack (Medrol (Pernell)) #21 ea tizanidine 4 mg tablet 4 mg PO Q6H PRN muscle spasticity 12/02/24 #20 tabs Allergies Allergy/AdvReac Type Severity Reaction Status Date / Time codeine Allergy nausea Verified 08/25/24 15:47 latex Allergy Unknown Verified 08/25/24 15:47 Sulfa (Sulfonamide Allergy rash Verified 08/25/24 15:47 Antibiotics) influenza A (H5N1) virus AdvReac Severe ADR-Muscle Verified 08/25/24 15:47 vaccine mo Pain Review of Systems Const: Denies: fever(s) or chills Card: Denies: chest pain Resp: Denies: dyspnea GI: Denies: abdominal pain : Denies: dysuria, urinary frequency or urinary urgency Musc: Reports: back pain; Denies: neck pain Skin/Breast: Denies: rash PFSH ED PFSH: Medical History COVID-19 long hauler Deep vein blood clot of right lower extremity Migraines Parkinsons disease Parkinson disease Hypertension Asthma Obesity Degenerative arthritis of right knee Surgical History Hx of excision of mass Subcutaneous masses of back, abdomen, right shoulder and right forearm- 06/20/23 Dr Ferguson H/O: hysterectomy Family History Other CAD (coronary artery disease) Cancer Diabetes Hypertension Social History Smoking and tobacco/nicotine status: unknown if used tobacco/nicotine Second hand smoke exposure: No Alcohol intake: current Alcohol intake frequency: few times a month Substance/Drug Use: never Lives independently: Yes Household members: spouse Marital status: Current occupational status: employed Current occupation: Teacher Current occupational exposures/hazards: No Do you think of yourself as: Straight/Heterosexual Current gender identity: Female Physical Exam Const: GENERAL APPEARANCE: cooperative ORIENTATION/CONSCIOUSNESS: Yes awake, Yes oriented to person, Yes oriented to place and Yes oriented to time HENMT: COMMON NORMALS: normocephalic, atraumatic and hearing grossly normal bilaterally HEAD & SCALP: normocephalic and atraumatic Resp: COMMON NORMALS: normal respiratory effort, No retractions, No use of accessory muscles and clear to auscultation bilaterally AUSCULTATION: clear to auscultation bilaterally Cardio: COMMON NORMALS: regular rate, regular rhythm and No murmurs present (Cardio) RATE: regular rate RHYTHM: regular rhythm GI: COMMON NORMALS: Soft to palpation and No hepatosplenomegaly present AUSCULTATION: Yes normoactive bowel sounds PALPATION: Yes Soft to palpation, No Tenderness to palpation present (GI), No Guarding due to palpation present (GI) and Yes No hepatosplenomegaly present Extremity: COMMON NORMALS: normal to inspection, capillary refill normal, no clubbing, cyanosis or edema, no calf tenderness and no pedal edema Neuro: SENSORIUM/ORIENTATION: Yes oriented to person, Yes oriented to place and Yes oriented to time Skin: COMMON NORMALS: no rashes or lesions noted GENERAL SKIN EXAM: no rashes or lesions noted Course Vital Signs: Vital signs: Vital Signs Temperature 98.1 F 12/02/24 06:59 Pulse Rate 70 12/02/24 11:57 Respiratory Rate 18 12/02/24 11:57 Blood Pressure 107/90 12/02/24 11:57 Pulse Oximetry 96 12/02/24 11:57 Oxygen Delivery Me thod Room Air 12/02/24 11:57 MDM - Abdominal Pain Medical Decision Making CT is negative no leukocytosis urine is unremarkable. Electrolytes unremarkable. Pain is reproducible with palpation and movement. Reviewed all the findings with the patient we will discharge her home. She has oxycodone at home we will also gave her diclofenac prednisone taper and tizanidine to use as needed follow-up with her primary care doctor as needed Lab Data 12/02/24 07:11 12/02/24 07:11 Labs/Radiology: Radiology Impressions Abdomen/Pelvis CT 12/02/24 07:38 IMPRESSION: 1. Study is compromised by body habitus and thoracolumbar spine hardware. 2. No renal obstruction or calcification identified. No hydronephrosis or perinephric stranding. 3. Limited evaluation of the urinary bladder due to artifact. 4. Negative gallbladder. 5. Mild hepatic steatosis and hepatomegaly. 6. No ascites or adenopathy. 7. Small umbilical hernia contains fat only. Laboratory Results WBC 5.34 10^3/uL (3.29-11.43) 12/02/24 07:11 RBC 5.49 10^6/uL (3.85-5.65) 12/02/24 07:11 Hgb 15.40 g/dL (11.27-16.99) 12/02/24 07:11 Hct 48.1 % (36-47) H 12/02/24 07:11 MCV 87.6 fl (85-98) 12/02/24 07:11 MCH 28.1 pg (27-33) 12/02/24 07:11 MCHC 32.0 g/dL (30-55) 12/02/24 07:11 RDW 13.9 % (12.1-15.1) 12/02/24 07:11 Plt Count 214 10^3/cmm (157-399) 12/02/24 07:11 MPV 10.2 fL (7.4-10.4) 12/02/24 07:11 Neut % (Auto) 52.7 % 12/02/24 07:11 Lymph % (Auto) 36.3 % 12/02/24 07:11 [place] % (Auto) 8.2 % 12/02/24 07:11 Eos % (Auto) 0.9 % 12/02/24 07:11 Baso % (Auto) 1.5 % 12/02/24 07:11 Neut # (Auto) 2.81 10^3/uL (1.8-7.7) 12/02/24 07:11 Lymph # (Auto) 1.9 10^3/uL (0.8-4.8) 12/02/24 07:11 [place] # (Auto) 0.4 10^3/uL (0.2-0.9) 12/02/24 07:11 Eos # (Auto) 0.1 10^3/uL (0.0-0.8) 12/02/24 07:11 Baso # (Auto) 0.1 10^3/uL (0.0-0.1) 12/02/24 07:11 Nucleated RBC % (auto) 0 % 12/02/24 07:11 Nucleated RBCs # 0.0 /100WBC 12/02/24 07:11 Sodium 140 mmol/L (136-145) 12/02/24 07:11 Potassium 3.8 mmol/L (3.5-5.1) 12/02/24 07:11 Chloride 101 mmol/L (98-107) 12/02/24 07:11 Carbon Dioxide 26 mmol/L (22-29) 12/02/24 07:11 Anion Gap 16.8 (5-19) 12/02/24 07:11 BUN 19 mg/dL (6-20) 12/02/24 07:11 Creatinine 0.9 mg/dL (0.5-0.9) 12/02/24 07:11 GFR Calculation 66.0 mL/min (90-130) L 12/02/24 07:11 Glucose 105 mg/dL (65-115) 12/02/24 07:11 Calculated Osmolality 293 mOsm/kg (285-295) 12/02/24 07:11 Calcium 9.1 mg/dL (8.5-10.5) 12/02/24 07:11 Total Bilirubin 0.6 mg/dL (0.15-1.2) 12/02/24 07:11 AST 14 U/L (0-32) 12/02/24 07:11 ALT 23 U/L (0-33) 12/02/24 07:11 Alkaline Phosphatase 93 U/L (35-105) 12/02/24 07:11 Total Protein 7.2 g/dL (6.6-8.7) 12/02/24 07:11 Albumin 4.1 g/dL (3.5-5.2) 12/02/24 07:11 Globulin 3.1 g/dL (1.3-4.6) 12/02/24 07:11 Urine Color Yellow (Yellow) 12/02/24 07:30 Urine Appearance Cloudy (CLEAR) A 12/02/24 07:30 Urine pH 5.5 (5-7) 12/02/24 07:30 Ur Specific Bowie 1.023 (1.005-1.030) 12/02/24 07:30 Urine Protein Trace (Negative) A 12/02/24 07:30 Urine Glucose (UA) Negative (Normal) 12/02/24 07:30 Urine Ketones Negative (Negative) 12/02/24 07:30 Urine Blood Negative (Negative) 12/02/24 07:30 Urine Nitrate Negative (Negative) 12/02/24 07:30 Urine Bilirubin Negative (Negative) 12/02/24 07:30 Urine Urobilinogen 1.0 mg/dL (Negative) 12/02/24 07:30 Ur Leukocyte Esterase Trace (Negative) A 12/02/24 07:30 Urine RBC 3-5 /hpf (0-2) 12/02/24 07:30 Urine WBC 11-20 /hpf (0-5) H 12/02/24 07:30 Ur Squamous Epith Cells 21-50 /hpf (0-5) H 12/02/24 07:30 Amorphous Sediment Not Reportable 12/02/24 07:30 Urine Bacteria 2+ /hpf (NONE) H 12/02/24 07:30 Hyaline Casts 1.65 /lpf 12/02/24 07:30 All radiology interpretation(s) finalized by discharge Discharge Plan Discharge Patient Disposition: Home Clinical Impression: Acute thoracic back pain Condition: Stable Prescriptions: New tizanidine 4 mg tablet 4 mg PO Q6H PRN (Reason: muscle spasticity) Qty: 20 0RF Rx Instructions: do not exceed 3 doses per 24 hrs diclofenac sodium 75 mg tablet,delayed release (DR/EC) 75 mg PO Q12H PRN (Reason: pain) Qty: 20 0RF methylprednisolone [Medrol (Pernell)] 4 mg tablets,dose pack See Rx Instructions .ROUTE .COMPLEX Qty: 21 0RF Rx Instructions: orally per package directions No Action duloxetine 60 mg capsule,delayed release(DR/EC) 60 mg PO DAILY Qty: 90 3RF aspirin 81 mg tablet,delayed release (DR/EC) 81 mg PO DAILY amlodipine 10 mg tablet 10 mg PO DAILY metoprolol succinate 25 mg tablet extended release 24 hr 25 mg PO DAILY carbidopa-levodopa 25-100 mg tablet 1.5 tab PO QID montelukast [Singulair] 10 mg tablet 10 mg PO DAILY Qty: 30 6RF pramipexole 0.125 mg Tablet 0.125 mg PO TID tramadol 50 mg tablet 100 mg PO Q6H PRN (Reason: pain) Qty: 40 0RF cyclobenzaprine 10 mg tablet 10 mg PO BID PRN (Reason: Muscle Spasm) furosemide 40 mg tablet 40 mg PO DAILY PRN (Reason: swelling) spironolactone 25 mg tablet 25 mg PO DAILY PRN (Reason: unknown) oxycodone 5 mg tablet 5 mg PO .Q4-6H PRN (Reason: chronic pain) liraglutide [Victoza 2-Pernell] 0.6 mg/0.1 mL (18 mg/3 mL) pen injector 1.2 mg SUBCUT DAILY Nucala 100 mg/mL auto-injector 100 mg SUBCUT .Q30D trazodone 50 mg tablet 50 mg PO BEDTIME Discharge Orders: Discharge ED (Routine); Ordered 12/02/24 Ordered By: Darrel Champion Referrals: Christina Rebolledo FNP [Primary Care Provider, Unknown] Discharge Diet: Usual diet Discharge Activity: Increase activity as tolerated Patient Instructions: Opioid Safety, Pain Management, Patient Portal & Kathrine Instructions Activity Restrictions/Additional Instructions: Thank you for choosing [facility] for your healthcare needs today. It is very important that you follow up as instructed or that you return to the Emergency Department should you have concerns or if your condition changes or worsens in any way. Emergency department visits are focused on emergent conditions, in some cases you may require further evaluation on an outpatient basis. You were seen in the emergency room with complaints of right flank pain. On exam there is no sign of shingles laboratory work and imaging done did not show any signs of any intra-abdominal pathology or significantly abnormal labs. Recommend we treat as musculoskeletal at this point. Steroid taper diclofenac as needed tizanidine as needed follow-up with your primary care doctor (Please note that included in your discharge packet is information concerning opioid safety and pain management. This information is given to all patients were discharged from the ER regardless of their discharge diagnosis or the medicines they usually take or are prescribed.) Print Language: Colombian Coding Level of Care Code ED [employer] Processing Technologist for Maurisio Zimmer
[2024-12-02 07:21] LABS: Hematocrit 48.1 % (36-47); Hemoglobin 15.40 g/dL (11.27-16.99); Mean Corpuscular HGB Conc 32.0 g/dL (30-55); Mean Corpuscular Hemoglobin 28.1 pg (27-33); Mean Corpuscular Volume 87.6 fl (85-98); Nucleated Red Blood Cells % 0 %; Platelet Count 214 10^3/cmm (157-399); Red Blood Count 5.49 10^6/uL (3.85-5.65); White Blood Count 5.34 10^3/uL (3.29-11.43)
[2024-12-02 07:32] LABS: Alanine Aminotransferase 23 U/L (0-33); Albumin Level 4.1 g/dL (3.5-5.2); Alkaline Phosphatase 93 U/L (35-105); Anion Gap 16.8 (5-19); Aspartate Amino Transferase 14 U/L (0-32); Blood Urea Nitrogen 19 mg/dL (6-20); Calcium 9.1 mg/dL (8.5-10.5); Carbon Dioxide 26 mmol/L (22-29); Chloride 101 mmol/L (98-107); Creatinine Clr Calc Pharmacy 138.9728; Globulin 3.1 g/dL (1.3-4.6); Glucose 105 mg/dL (65-115); Osmolality Calculated 293 mOsm/kg (285-295); Potassium 3.8 mmol/L (3.5-5.1); Sodium 140 mmol/L (136-145); Total Protein 7.2 g/dL (6.6-8.7)
--- NOTE | 2024-12-02 07:38 | CT_ITS ---
WS: [id number] CT ABDOMEN AND PELVIS NONCONTRAST HISTORY: flank pain, RIGHT for 3 days. TECHNIQUE: Imaging performed through the abdomen and pelvis. Coronal and sagittal reformats are submitted. All CT scans at [facility] use at least one of these dose optimization techniques: automated exposure control; mA and/or kV adjustment per patient size (includes targeted exams where dose is matched to clinical indication); or iterative reconstruction. DLP: 2453.50 mGy.cm COMPARISON: 11/11/2024 Lower thorax: Beam-hardening artifact through the thoracolumbar region from spine hardware. No pneumonia at the lung bases. Heart size is normal. Small hiatal hernia. Liver: Mild hepatomegaly with hepatic steatosis. No intrahepatic duct dilatation. Gallbladder: Normal gallbladder. No pericholecystic fluid or cholelithiasis. No gallbladder wall thickening. Pancreas: Normal size and attenuation. Normal pancreatic duct. No pancreatitis or mass. Spleen: Normal. Adrenal glands: Normal. No mass. Right kidney: Normal size kidney with no mass or hydronephrosis. Left kidney: Normal size kidney with no mass or hydronephrosis. Aorta: Normal abdominal aorta, no aneurysm or atherosclerosis. No free fluid, intraperitoneal air or significant lymphadenopathy. GI tract: No GI tract obstruction. Normal small bowel. No appendicitis. No colitis or diverticulitis. Abdominal wall: Small umbilical hernia contains fat only. Pelvis: Beam hardening artifact through the pelvis from patient's body habitus. Uterus is not identified and is probably been surgically removed. No free fluid or adenopathy. Osseous structures: Thoracolumbar stabilization hardware. LEFT curvature lumbar spine. CT/CT kidney stone [id number] IMPRESSION: 1. Study is compromised by body habitus and thoracolumbar spine hardware. 2. No renal obstruction or calcification identified. No hydronephrosis or courtney nephric stranding. 3. Limited evaluation of the urinary bladder due to artifact. 4. Negative gallbladder. 5. Mild hepatic steatosis and hepatomegaly. 6. No ascites or adenopathy. 7. Small umbilical hernia contains fat only.
[2024-12-02 08:01] LABS: Glucose Urine UA Negative (Normal); Nitrate Urine Negative (Negative); Specific Gravity, Urine 1.023 (1.005-1.030)
[2024-12-02 08:03] LABS: Add Urine Microscopic? YES
[2024-12-02 08:20] LABS: UA Slide Review UA Slide Review Perf
[2024-12-02] MEDS: morphine 4 mg/mL SDV 1 mL IM (10:02)
[2024-12-02] MEDS: morphine 4 mg/mL SDV 1 mL 2 MG IM (11:42)
== END 2024-12-02 12:03 | disposition home or self-care (01) ==
PROVIDERS: Emergency Provider Family Medicine; PCP Nurse Practitioner Family
DX: M54.6 Pain in thoracic spine (principal); Z79.82 Long term (current) use of aspirin; I10 Essential (primary) hypertension
CPT/HCPCS: 36415; 74176; 80053; 81001; 85025; 96372; 99284; J2270